=== PATIENT | male | born 1945 | race African-American/Black ===

== ENCOUNTER 2019-06-25 11:56 | Emergency (ER) | payer BC, OTHER ==
[2019-06-25 12:27] VITALS: BP 140/93; PULSE 65; TEMP 98.4; BMI 22.2
--- NOTE | 2019-06-25 13:17 | PDOC ---
History of Present Illness - General Chief Complaint: Rectal Bleed Stated Complaint: BLOOD IN STOOL Time Seen by Provider: 06/25/19 12:44 Past History - Past Medical History Allergies/Adverse Reactions: Allergies Allergy/AdvReac Type Severity Reaction Status Date / Time No Known Allergies Allergy Verified 03/27/14 10:35 Home Medications: Ambulatory Orders Losartan/Hydrochlorothiazide [Losartan-Hctz 50-12.5 mg Tab] 1 each PO DAILY 02/26 Metoprolol Succinate [Toprol XL -] 50 mg PO DAILY 01/21/14 Omeprazole [Prilosec] 20 mg PO DAILY 01/21/14 Docusate Sodium [Colace -] 100 mg PO BID PRN #14 capsule 03/27/14 COPD: No Diabetes: Yes GI Disorders: Yes (ACID REFLUX) HTN: Yes - Psycho Social/Smoking Cessation Hx Smoking History: Never smoked Have you smoked in the past 12 months: No Hx Alcohol Use: No Drug/Substance Use Hx: No Substance Use Type: None *Physical Exam - Vital Signs Last Vital Signs Temp Pulse Resp BP Pulse Ox 98.4 F 65 19 140/93 100 06/25/19 12:22 06/25/19 12:22 06/25/19 12:22 06/25/19 12:22 06/25/19 12:22 ED Treatment Course - LABORATORY CBC & Chemistry Diagram: 06/25/19 12:45 06/25/19 12:45 Medical Decision Making - Medical Decision Making 06/25/19 13:07 73M PMH HTN GERD c/o bright red blood streaking his stool today after he strained. Endorses blood on toilet paper. Denies steve blood in toilet. + h/o similar with straining, last episode in the summer. Presenting today to make sure everything is okay. Denies f/c, lightheadedness, dizziness, cp/sob, n/v, abd pain. NKDA [facility] clinic PMD Denies etoh, tobacco, and drugs CONSTITUTIONAL: Denies F / C HEENT: Denies lightheadedness, dizziness RESP: Denies SOB CARD: Denies chest pain GI: Endorses blood streaked stool. Denies N / V / D, abdominal pain, inability to tolerate PO : Denies dysuria VITALS: AFVSS GEN: Well appearing, NAD, comfortable. AAOx3. HEENT: NC/AT. No facial asymmetry. Normal voice. Supple neck w/ FROM. CV: S1/S2, RRR, no m/r/g LUNG: CTAB, no wheezes, crackles, rales, rhonchi. GI: Soft, ndnt, +BS, no guarding, no rebound. No masses. RECTAL: Exam chaperoned by CARLOS Morfin. + nonthrombosed external hemorrhoid at 6 o 'clock on inspection. no active bleeding or discharge from anus. Normal sphincter tone. No masses or nodules of the rectal vault palpated. No fecal impaction. No blood on glove. EXTREMITIES:No obvious deformities of all extremities. SKIN: Warm, dry, no rashes appreciated. PSYCH: Normal mood and affect; pleasant NEURO: Moving all extremities well. 73M PMH HTN GERD c/o blood streaked stool after straining today. No current complaints. VS WNL. Unremarkable exam w/ nonthrombosed external hemorrhoid no active bleeding. Blood streaked stool likely due to straining. - CBC, CMP - FOBT - likely DC home w/ PCP and GI f/u Discharge - Discharge Information Problems reviewed: Yes Clinical Impression/Diagnosis: Blood present in stool Condition: Stable Disposition: HOME - Admission No - Follow up/Referral Referrals: Brandy Alcocer NP [Primary Care Provider] - Kevon Colin MD [Staff Physician] - - Patient Discharge Instructions Patient Printed Discharge Instructions: DI for Hemorrhoids, DI for Rectal Bleeding Additional Instructions: Follow up with a GI doctor in the next 7 days regarding your symptoms. We are referring you to one below whom you can call and schedule an appointment with. You may also use your clinic's. Follow up with your primary care physician in the next 7 days regarding your symptoms. Continue your home medications as prescribed. Immediately return to the nearest Emergency Department if you experience: - worsening bleeding - abdominal pain - chest pain, shortness of breath, lightheadedness, fainting - anything that concerns you - Post Discharge Activity
[2019-06-25 13:37] LABS: BASO % 0.4 % (0-2.0); EOS % 1.6 % (0-4.5); HEMATOCRIT 43.9 % (35.4-49); HEMOGLOBIN 14.4 GM/dL (11.7-16.9); LYMPH % 28.2 % (8-40); MCH 28.8 pg (25.7-33.7); MCHC 32.8 g/dl (32.0-35.9); MEAN CELL VOLUME 87.8 fl (80-96); MEAN PLT VOLUME 11.1 fl (7.5-11.1); MONO % 6.6 % (3.8-10.2); NEUT % 63.2 % (42.8-82.8); PLATELET COUNT 193 K/MM3 (134-434); RDW 14.6 % (11.9-15.9); WHITE BLOOD COUNT 6.3 K/mm3 (4.0-10.0)
[2019-06-25 14:23] LABS: INR 0.97 (0.83-1.09); PROTHROMBIN TIME (PATIENT) 11.5 SEC (9.7-13.0)
[2019-06-25 14:26] LABS: ACTIVATED PTT 29.3 SECONDS (25.2-36.5)
--- NOTE | 2019-06-25 15:43 | PDOC ---
Documentation entered by Alia Leroy SCRIBE, acting as scribe for Shannon Hernandez MD. Shannon Hernandez MD: This documentation has been prepared by the Mariaa sullivan Xhesika, SCRIBE, under my direction and personally reviewed by me in its entirety. I confirm that the documentation accurately reflects all work, treatment, procedures, and medical decision making performed by me. Attending Attestation - Resident Resident Name: Yoel Goodson - HPI HPI: 06/25/19 14:54 The patient is a 73 year old male with a significant PMH of HTN and GERD who presents to the emergency department for hematochezia. Pt states he noticed BRB in his stool and toilet paper s/p straining. Pt notes he endorsed similar symptoms in the past when straining. The patient denies chest pain, headache and dizziness. Denies fever, chills, cough, and constipation. Denies dysuria, frequency, urgency and hematuria. Allergies: NKDA - Physicial Exam PE: 06/25/19 15:39 Agree with resident exam. patient is alert and oriented and in no acute distress. Abdomen is soft, non tender, non distended with no guarding or rebound. - Medical Decision Making 06/25/19 15:41 pt presents to the Ed complaining of a single episode of blood streaked stool. Guiac negative with stable hgb. Will discharge home with instructions to return to the ED for worsening symptoms. Will instruct to follow up with PCP on Thursday.
== END 2019-06-25 17:00 | disposition home or self-care (01) ==
LOC: JER 11:56 → SUPCPDRO 11:56 → JER 17:00
DX: K92.1 Melena (principal); K64.4 Residual hemorrhoidal skin tags; I10 Essential (primary) hypertension; K21.9 Gastro-esophageal reflux disease without esophagitis; E11.9 Type 2 diabetes mellitus without complications
CPT/HCPCS: 36415; 82272; 85025; 85610; 85730; 99282-25

== ENCOUNTER 2019-12-23 19:23 | Emergency (ER) | payer BC, OTHER ==
--- NOTE | 2019-12-23 19:29 | PDOC ---
Rapid Medical Evaluation Chief Complaint: Constipation Time Seen by Provider: 12/23/19 19:26 Medical Evaluation: Allergies Allergy/AdvReac Type Severity Reaction Status Date / Time No Known Allergies Allergy Verified 03/27/14 10:35 12/23/19 19:27 CC: constipation x 3 days, had a small bm last night, mild abd bloating, denies hx of constipation/abd sx Exam: mild lower abd distention, no abd tenderness, bs + x4 Plan: kub Discharge Disposition - Diagnosis Constipation - Referrals - Patient Instructions - Post Discharge Activity
[2019-12-23 19:34] VITALS: BP 152/90; PULSE 74; TEMP 98.3; BMI 21.5
--- NOTE | 2019-12-23 20:01 | PDOC ---
History of Present Illness - General Chief Complaint: Constipation Stated Complaint: CONSTIPATION Time Seen by Provider: 12/23/19 19:26 - History of Present Illness Initial Comments: 12/23/19 20:00 HPI: 74 y/o M with hx of GERD, HTN, HLD presenting with constipation x3days. He reported last BM was small and hard. He went to his PCP for constipation and was prescribed clarithromycin and amoxicillin. He also took laxative yesterday without improvement. He reports passing gas, tolerating liquids and solids. Denies abd pain, distension, increased belching, dysuria, hematuria, n/v. PMHx: as noted above ROS: as noted SHx: Denies tobacco use; no alcohol use; no rec drugs Allergies: NKDA ROS: GENERAL/CONSTITUTIONAL: No fever or chills. No weakness. HEAD, EYES, EARS, NOSE AND THROAT: No change in vision. No ear pain or dis charge. No sore throat. CARDIOVASCULAR: No chest pain or shortness of breath RESPIRATORY: No cough, wheezing, or hemoptysis. GASTROINTESTINAL: No nausea, vomiting, diarrhea; +constipation. GENITOURINARY: No dysuria, frequency, or change in urination. MUSCULOSKELETAL: No joint or muscle swelling or pain. No neck or back pain. SKIN: No rash NEUROLOGIC: No headache, vertigo, loss of consciousness, or change in strength/sensation. ENDOCRINE: No increased thirst. No abnormal weight change HEMATOLOGIC/LYMPHATIC: No anemia, easy bleeding, or history of blood clots. ALLERGIC/IMMUNOLOGIC: No hives or skin allergy. PE: GENERAL: Awake, alert, and fully oriented, no acute distress HEAD: No signs of trauma, normocephalic, atraumatic EYES: EOMI, sclera anicteric, conjunctiva clear ENT: Auricles normal inspection, hearing grossly normal, nares patent, oropharynx clear without exudates. Moist mucosa NECK: Normal ROM, no lymphadenopathy LUNGS: No increased work of breathing, symmetrical chest rise, clear to auscultation bilaterally, no wheezes, crackles or rhonchi HEART: Regular rate, regular rhythm, normal S1 and S2, no murmur, peripheral pulses 2+ and equal bilaterally. ABDOMEN: Soft, nondistended, nontender. Tympanitic to percussion. No guarding, no rebound. No masses. No CVAT : external hemorrhoids, soft brown stool in the vault, no interior masses MUSCULOSKELETAL: FROM NEUROLOGICAL: Cranial nerves II through XII grossly intact. Normal speech, stable gait, no focal sensorimotor deficits SKIN: Warm, Dry, normal turgor, no rashes or lesions noted Past History - Medical History Allergies/Adverse Reactions: Allergies Allergy/AdvReac Type Severity Reaction Status Date / Time No Known Allergies Allergy Verified 12/23/19 19:29 Home Medications: Ambulatory Orders Losartan/Hydrochlorothiazide [Losartan-Hctz 50-12.5 mg Tab] 1 each PO DAILY 01/21/14 Metoprolol Succinate [Toprol XL -] 50 mg PO DAILY 01/21/14 Omeprazole [Prilosec] 20 mg PO DAILY 01/21/14 Docusate Sodium [Colace -] 100 mg PO BID PRN #14 capsule 03/27/14 COPD: No Diabetes: Yes GI Disorders: Yes (ACID REFLUX) HTN: Yes Other medical history: stutters - Psycho-Social/Smoking History Smoking History: Never smoked Have you smoked in the past 12 months: No - Substance Abuse Hx (Audit-C & DAST Scrn) How often the patient has a drink containing alcohol: Never Score: In Men: 4 or > Positive; In Women: 3 or > Positive: 0 Screen Result (Pos requires Nsg. Audit-10AR): Negative *Physical Exam - Vital Signs Last Vital Signs Temp Pulse Resp BP Pulse Ox 98.3 F 74 18 152/90 100 12/23/19 19:26 12/23/19 19:26 12/23/19 19:26 12/23/19 19:26 12/23/19 19:26 Medical Decision Making - Medical Decision Making 12/24/19 03:38 74 y/o M with hx of GERD, HTN, HLD presenting with constipation x3days. VSS, AF. PE with tympanitic to percussion. -KUB -enema -reassess 12/24/19 03:39 patient had 1 BM feels well discussed with patient and will buy OTC miralax and fleets enema and followup with GI Discharge - Discharge Information Problems reviewed: Yes Clinical Impression/Diagnosis: Constipation Condition: Improved Disposition: HOME - Follow up/Referral Referrals: Mychal Avila DO [Staff Physician] - Janet Cordero MD [Staff Physician] - Kevon Colin MD [Staff Physician] - Brandy Alcocer NP [Primary Care Provider] - - Patient Discharge Instructions Patient Printed Discharge Instructions: Increased Dietary Fiber May Improve Co nstipation Conditions With Pelvic Tha, DI for Constipation Additional Instructions: Additional Instructions: Please return to the emergency department with any new or worsening symptoms or concerns including persistent vomiting, fever, inability to tolerate food. Please follow up with your primary care physician within 72 hours. Also followup with one of the GI doctors for followup for improved bowel regimen Please take Miralax daily for 5 days. It is an over the counter medication and please follow instructions and ask the pharmacist any additional questions. You may also purchase a Fleets enema over the counter to assist in your bowel regimen; please follow package instructions - Post Discharge Activity
[2019-12-23] MEDS ORDERED: MINERAL OIL ENEMA 133 ML ENEMA PR ONE (20:17)
--- NOTE | 2019-12-23 20:51 | PDOC ---
Documentation entered by Camilla Li SCRIBE, acting as scribe for Kristin Connor MD. Kristin Connor MD: This documentation has been prepared by the scribe, Camilla Li SCRIBE, under my direction and personally reviewed by me in its entirety. I confirm that the documentation accurately reflects all work, treatment, procedures, and medical decision making performed by me. Attending Attestation - Resident Resident Name: AronDanieldoug - ED Attending Attestation I have performed the following: I have examined & evaluated the patient, The case was reviewed & discussed with the resident, I agree w/resident's findings & plan, Exceptions are as noted - HPI HPI: 12/23/19 20:47 Patient is a 74 year old male with a significant past medical history of GERD, HTN, and HLD, who presents to the ED with constipation x2 days. Patient stated he had one small/hard bowel movement yesterday and has been passing rosa isela. Patient denies: Nausea, vomiting, dysuria Allergies: NKDA - Physicial Exam PE: 12/23/19 20:48 General: Well appearing, awake and alert, NAD. HEENT: NCAT, PERRL, EOMI, clear conjunctiva, anicteric, moist mucus membranes, clear oropharynx, no oral lesions.. Neck: neck supple, FROM Resp: CTAB, normal and even respirations, no respiratory distress CVS: RRR, no murmurs, 2+ peripheral pulses throughout, no peripheral edema Abdomen: +Tympanic. Soft, NTND, no rebound or guarding. No CVAT. Rectal: +Soft round external stool. No thrombosis. Nontender, no bleeding. Normal active bowel sounds. Back: nontender, normal inspection and ROM MSK: no edema, BETANCUR x4, ROM intact. No clubbing or cyanosis. normal bulk and tone. Neuro: alert, oriented appropriately Psych: Calm and cooperative Skin: warm and well perfused, cap refill <2 sec, normal color 12/23/19 20:59 - Medical Decision Making 12/23/19 20:51 Vital Signs Temp Pulse Resp BP Pulse Ox 98.3 F 74 18 152/90 100 12/23/19 19:26 12/23/19 19:26 12/23/19 19:26 12/23/19 19:26 12/23/19 19:26 Moderate amount of fecal residue in the rectosigmoid junction compatible with his history of constipation. There is nonobstructive gas pattern, no evidence of perforation. vitals wnl, reassuring Patient does not have any peritoneal findings, no abdominal tenderness, no evidence obstruction, no vomiting. No fevers or chills no systemic findings. Rectal exam as documented he does have some stool burden in the rectal vault, no bleeding, nonthrombosed and nonbleeding external hemorrhoids are noted. Patient given mineral oil enema here. Mag citrate. He can continue with high- fiber regimen, adequate hydration and otc stool softeners. Follow-up with primary care doctor, GI specialist, return precautions are discussed 12/23/19 20:59 12/23/19 21:00 Discharge - Discharge Information Problems reviewed: Yes Clinical Impression/Diagnosis: Constipation Condition: Improved Disposition: HOME - Admission No - Follow up/Referral Referrals: Brandy Alcocer NP [Primary Care Provider] - Mychal Avila DO [Staff Physician] - Janet Cordero MD [Staff Physician] - Kevon Colin MD [Staff Physician] - - Patient Discharge Instructions Patient Printed Discharge Instructions: DI for Constipation, Increased Dietary Fiber May Improve Constipation Conditions With Pelvic Tha - Post Discharge Activity
[2019-12-26] MEDS ORDERED: SODIUM CHLORIDE 1,000 ML IV SCH (02:00)
[2019-12-26] MEDS ORDERED: POTASSIUM CHLORIDE TABS 20 MEQ TABLET.ER (FP) PO ONE (02:04)
--- NOTE | 2019-12-26 09:32 | EKG ---
Test Reason : Blood Pressure : / mmHG Vent. Rate : 069 BPM Atrial Rate : 069 BPM P-R Int : 188 ms QRS Dur : 086 ms QT Int : 424 ms P-R-T Axes : 066 -22 042 degrees QTc Int : 454 ms POOR DATA QUALITY, INTERPRETATION MAY BE ADVERSELY AFFECTED NORMAL SINUS RHYTHM NORMAL ECG WHEN COMPARED WITH ECG OF 26-DEC-2019 00:39, NO SIGNIFICANT CHANGE WAS FOUND Confirmed by Anne Lancaster ([id number]) on 12/26/2019 9:31:48 AM Referred By: Confirmed By:Anne Lancaster
[2019-12-26] MEDS ORDERED: PANTOPRAZOLE SODIUM 40 MG VIAL IVPUSH SCH (10:00)
[2019-12-26] MEDS ORDERED: ENOXAPARIN NA (PORCINE) 40 MG/0.4 ML DISP.SYRIN SQ SCH (10:00)
== END 2019-12-23 22:49 | disposition home or self-care (01) ==
LOC: JER 19:23
DX: K59.00 Constipation, unspecified (principal)
CPT/HCPCS: 36415; 74018-TC-FY; 80053; 82550; 82553; 83036; 83735; 84100; 84484; 85025; 93005; 93010; 99285-25

== ENCOUNTER 2019-12-25 21:42 | Inpatient (IN) | payer OTHER ==
--- NOTE | 2019-12-25 21:55 | PDOC ---
Attending Attestation - Resident Resident Name: Cisco Cedeño - ED Attending Attestation I have performed the following: I have examined & evaluated the patient, The case was reviewed & discussed with the resident, I agree w/resident's findings & plan - HPI HPI: 12/25/19 22:16 Pt comes with diarrhea since this AM; he vomited once en route to the ER. Pt went to see his PMD Brandy Alcocer on Thursday 2 days ago at the [facility] and she prescribed clarithro/amox for H pylorii. Pt doesn't recall ever getting endoscopy or seeing a GI doc for H Pylorii. 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 Unclear how PMD diagnosed the H Pylorii. Pt came to the ER 2 days ago because he was constipated and feeling unwell. Pt was basically given laxatives here 2 days ago and sent home after a BM and after he felt better. Pt has no fever and no chills at this time. He has no ill contacts. He ate homemade chicken soup which he vomited in the ambulance. Nobody else at home sick. He has HTN, but no other PMHx. Pt has a severe stutter. - Physicial Exam PE: 12/25/19 22:21 Afebrile VSS HEENT normal Heart and lungs normal no abd pain and no flank pain Pt has no edema of ext Pt has good pulses throughout No rashes - Medical Decision Making 12/25/19 22:22 Basic labs, card enz, EKG, IVF and UA. Pt will be reevaluated. 12/26/19 00:22 Pt has elevated cardiac enzymes and trop and he will be admitted to tele. 12/26/19 00:55 Pt has hyponatremia and hypokalemia Discharge - Discharge Information Problems reviewed: Yes Clinical Impression/Diagnosis: Diarrhea, Hyponatremia Condition: Guarded - Follow up/Referral - Patient Discharge Instructions - Post Discharge Activity
[2019-12-25] MEDS ORDERED: SODIUM CHLORIDE 0.9% 500 ML INFUS.BAG IV ONE (22:23)
[2019-12-25] MEDS ORDERED: ONDANSETRON 4 MG/2 ML VIAL IVPB ONE (22:23)
[2019-12-25 23:06] LABS: BASO % 1.8 % (0-2.0); EOS % 0.5 % (0-4.5); HEMATOCRIT 37.8 % (35.4-49); LYMPH % 13.1 % (8-40); MCH 28.7 pg (25.7-33.7); MCHC 34.3 g/dl (32.0-35.9); MEAN CELL VOLUME 83.6 fl (80-96); MEAN PLT VOLUME 10.2 fl (7.5-11.1); MONO % 6.7 % (3.8-10.2); NEUT % 77.9 % (42.8-82.8); PLATELET COUNT 185 K/MM3 (134-434); RBC 4.52 M/mm3 (4.00-5.60); RDW 13.5 % (11.9-15.9); URINE APPEARANCE CLEAR; URINE BILIRUBIN NEGATIVE (NEGATIVE); URINE COLOR YELLOW; URINE GLUCOSE (UA) NEGATIVE (NEGATIVE); URINE KETONE 1+ (NEGATIVE); URINE LEUK ESTERASE NEGATIVE (NEGATIVE); URINE NITRITE NEGATIVE (NEGATIVE); URINE PROTEIN NEGATIVE (NEGATIVE); URINE UROBILINOGEN 0.2 mg/dL (0.2-1.0)
--- NOTE | 2019-12-25 23:49 | PDOC ---
History of Present Illness - General Chief Complaint: Vomiting/Diarrhea Stated Complaint: WEAKNESS VOMITING Time Seen by Provider: 12/25/19 22:13 History Source: Patient - History of Present Illness Initial Comments: 12/25/19 23:40 74yo male with severe stutter and HTN presents to the ED with diarrhea since this morning, nausea, and vomiting on route on the ambulance. He recently presented to the ED for constipation and was prescribed laxatives. He saw his PCP 2 days prior and was given amoxacillin and clarithromycin for presumed h. pylori despite no EGD, and diarrhea started two days later. Describes it as watery without blood. Nausea intermittent since this morning. Denies blood in stool. Denies f/c, CP, AP, cough, congestion PMHX: as in HPI PSHX: none Meds: BP meds, omeprazole, amoxicillin, clarithromycin Allergies: none SH: denies alc/tob/drugs ROS GENERAL/CONSTITUTIONAL: No fever or chills. No weakness. HEAD, EYES, EARS, NOSE AND THROAT: No change in vision. No ear pain or discharg e. No sore throat. CARDIOVASCULAR: No chest pain or shortness of breath RESPIRATORY: No cough, wheezing, or hemoptysis. GASTROINTESTINAL: + nausea, vomiting, diarrhea GENITOURINARY: No dysuria, frequency, or change in urination. MUSCULOSKELETAL: No joint or muscle swelling or pain. No neck or back pain. SKIN: No rash NEUROLOGIC: No headache, vertigo, loss of consciousness, or change in strength/sensation. ENDOCRINE: No increased thirst. No abnormal weight change HEMATOLOGIC/LYMPHATIC: No anemia, easy bleeding, or history of blood clots. ALLERGIC/IMMUNOLOGIC: No hives or skin allergy. PE GENERAL: Awake, alert, and fully oriented, in no acute distress, severe stutter, emesis bag in hand HEAD: No signs of trauma, normocephalic, atraumatic EYES: PERRLA, EOMI, sclera anicteric, conjunctiva clear ENT: Hearing grossly normal, nares patent, oropharynx clear without exudates. Moist mucosa NECK: Normal ROM, supple, no lymphadenopathy, JVD, or masses LUNGS: No distress, speaks full sentences, clear to auscultation bilaterally HEART: Regular rate and rhythm, normal S1 and S2, no murmurs, rubs or gallops, peripheral pulses normal and equal bilaterally. ABDOMEN: Soft, nontender, normoactive bowel sounds. No guarding, no rebound. No masses EXTREMITIES : Normal inspection, Normal range of motion, no edema. No clubbing or cyanosis. NEUROLOGICAL: Cranial nerves II through XII grossly intact. No focal sensorimotor deficits SKIN: Warm, Dry, normal turgor, no rashes or lesions noted Assessment and Plan 74yo male with severe stutter and HTN presents to the ED with diarrhea since this morning, nausea, and vomiting on route on the ambulance. Differential incl udes medication adverse effect (antibiotics and/or laxatives), gastroenteritis, ACS. -EKG: NSR, no ischemic changes -CXR: no consolidation (my read) -labs: low Cl and K (consistent with emesis) -trop: 0.05, will repeat cardiac enzymes -zofran, IV fluids 12/26/19 00:10 Reassess: no repeat emesis, decreased nausea, no repeat diarrhea, no chest pain Signed out to Dr. Guzman Past History - Medical History Allergies/Adverse Reactions: Allergies Allergy/AdvReac Type Severity Reaction Status Date / Time No Known Allergies Allergy Verified 12/25/19 22:00 Home Medications: Ambulatory Orders Losartan/Hydrochlorothiazide [Losartan-Hctz 50-12.5 mg Tab] 1 each PO DAILY 01/21/14 Metoprolol Succinate [Toprol XL -] 50 mg PO DAILY 01/21/14 Omeprazole [Prilosec] 20 mg PO DAILY 01/21/14 Docusate Sodium [Colace -] 100 mg PO BID PRN #14 capsule 03/27/14 COPD: No Diabetes: Yes GI Disorders: Yes (ACID REFLUX) HTN: Yes - Psycho-Social/Smoking History Smoking History: Never smoked Have you smoked in the past 12 months: No Information on smoking cessation initiated: No - Substance Abuse Hx (Audit-C & DAST Scrn) How often the patient has a drink containing alcohol: Never Score: In Men: 4 or > Positive; In Women: 3 or > Positive: 0 Screen Result (Pos requires Nsg. Audit-10AR): Negative In the last yr the pt used illegal drug/Rx for NonMed reason: No Score: Yes response is considered Positive: 0 Screen Result (Positive result requires Nsg. DAST-10): Negative *Physical Exam - Vital Signs Last Vital Signs Temp Pulse Resp BP Pulse Ox 98.5 F 72 20 139/76 98 12/25/19 21:50 12/25/19 21:50 12/25/19 21:50 12/25/19 21:50 12/25/19 21:50 ED Treatment Course - LABORATORY CBC & Chemistry Diagram: 12/25/19 22:35 12/25/19 21:59 - ADDITIONAL ORDERS Additional order review: Laboratory Results 12/25/19 22:35 Urine Color Yellow Urine Appearance Clear Urine pH 6.0 Ur Specific [place] 1.010 Urine Protein Negative Urine Glucose (UA) Negative Urine Ketones 1+ H Urine Blood Negative Urine Nitrite Negative Urine Bilirubin Negative Urine Urobilinogen 0.2 Ur Leukocyte Esterase Negative 12/25/19 22:35 RBC 4.52 MCV 83.6 MCHC 34.3 RDW 13.5 MPV 10.2 Neutrophils % 77.9 D Lymphocytes % 13.1 D Monocytes % 6.7 Eosinophils % 0.5 Basophils % 1.8 D - Medications Given in the ED: ED Medications Discontinued Medications Generic Name Dose Route Start Last Admin Trade Name Jayy PRN Reason Stop Dose Admin Ondansetron HCl 4 mg 12/25/19 22:23 12/25/19 22:51 Zofran Injection IVPB 12/25/19 22:24 4 mg ONCE ONE Administration Sodium Chloride 250 ml 12/25/19 22:23 12/25/19 22:50 Normal Saline - IV 12/25/19 22:24 250 ml ONCE ONE Administration Discharge - Discharge Information Problems reviewed: Yes Clinical Impression/Diagnosis: Diarrhea Condition: Fair - Follow up/Referral - Patient Discharge Instructions - Post Discharge Activity
[2019-12-25 23:52] LABS: ALBUMIN 3.6 g/dl (3.4-5.0); BILIRUBIN,TOTAL 1.3 mg/dL (0.2-1); BLOOD UREA NITROGEN 7.6 mg/dL (7-18); CALCIUM 8.4 mg/dL (8.5-10.1); CREATININE 0.9 mg/dL (0.55-1.3); POTASSIUM 3.6 mmol/L (3.5-5.1); TOT PROT 6.6 g/dl (6.4-8.2)
[2019-12-26] MEDS ORDERED: ASPIRIN 81 MG CHEWABLE TABLETS PO ONE (00:20)
[2019-12-26] MEDS ORDERED: CLOPIDOGREL BISULFATE 300 MG TABLET PO ONE (00:20)
[2019-12-26] MEDS ORDERED: CLOPIDOGREL BISULFATE 300 MG TABLET ONE (00:26)
[2019-12-26] MEDS ORDERED: ASPIRIN 81 MG CHEWABLE TABLETS ONE (00:26)
--- NOTE | 2019-12-26 00:31 | PDOC ---
*Physical Exam - Vital Signs Last Vital Signs Temp Pulse Resp BP Pulse Ox 98.5 F 72 20 139/76 98 12/25/19 21:50 12/25/19 21:50 12/25/19 21:50 12/25/19 21:50 12/25/19 21:50 ED Treatment Course - LABORATORY CBC & Chemistry Diagram: 12/25/19 22:35 12/25/19 21:59 - ADDITIONAL ORDERS Additional order review: Laboratory Results 12/25/19 12/25/19 22:35 21:59 Sodium 117 L* Potassium 3.6 Chloride 80 L Carbon Dioxide 23 Anion Gap 14 BUN 7.6 Creatinine 0.9 Est GFR (CKD-EPI)AfAm 97.86 Est GFR (CKD-EPI)NonAf 84.43 Random Glucose 116 H Calcium 8.4 L Total Bilirubin 1.3 H AST 58 H ALT 32 Alkaline Phosphatase 54 Creatine Kinase 1007 H Troponin I 0.05 Total Protein 6.6 Albumin 3.6 Urine Color Yellow Urine Appearance Clear Urine pH 6.0 Ur Specific [place] 1.010 Urine Protein Negative Urine Glucose (UA) Negative Urine Ketones 1+ H Urine Blood Negative Urine Nitrite Negative Urine Bilirubin Negative Urine Urobilinogen 0.2 Ur Leukocyte Esterase Negative 12/25/19 22:35 RBC 4.52 MCV 83.6 MCHC 34.3 RDW 13.5 MPV 10.2 Neutrophils % 77.9 D Lymphocytes % 13.1 D Monocytes % 6.7 Eosinophils % 0.5 Basophils % 1.8 D - Medications Given in the ED: ED Medications Discontinued Medications Generic Name Dose Route Start Last Admin Trade Name Freq PRN Reason Stop Dose Admin Ondansetron HCl 4 mg 12/25/19 22:23 12/25/19 22:51 Zofran Injection IVPB 12/25/19 22:24 4 mg ONCE ONE Administration Sodium Chloride 250 ml 12/25/19 22:23 12/25/19 22:50 Normal Saline - IV 12/25/19 22:24 250 ml ONCE ONE Administration Medical Decision Making - Medical Decision Making Patient signed out by Dr. Cedeño Lab called reporting hyponatremia, 117 CMP Sodium 117 mmol/L (136-145) L* 12/25/19 21:59 Potassium 3.6 mmol/L (3.5-5.1) 12/25/19 21:59 Chloride 80 mmol/L (98-107) L 12/25/19 21:59 Carbon Dioxide 23 mmol/L (21-32) 12/25/19 21:59 Anion Gap 14 MMOL/L (8-16) 12/25/19 21:59 BUN 7.6 mg/dL (7-18) 12/25/19 21:59 Creatinine 0.9 mg/dL (0.55-1.3) 12/25/19 21:59 Est GFR (CKD-EPI)AfAm 97.86 12/25/19 21:59 Est GFR (CKD-EPI)NonAf 84.43 12/25/19 21:59 Random Glucose 116 mg/dL (74-106) H 12/25/19 21:59 Calcium 8.4 mg/dL (8.5-10.1) L 12/25/19 21:59 Total Bilirubin 1.3 mg/dL (0.2-1) H 12/25/19 21:59 AST 58 U/L (15-37) H 12/25/19 21:59 ALT 32 U/L (13-61) 12/25/19 21:59 Alkaline Phosphatase 54 U/L (45-117) 12/25/19 21:59 Creatine Kinase 1007 U/L (26-308) H 12/25/19 21:59 Troponin I 0.05 ng/ml (0.00-0.05) 12/25/19 21:59 Total Protein 6.6 g/dl (6.4-8.2) 12/25/19 21:59 Albumin 3.6 g/dl (3.4-5.0) 12/25/19 21:59 Plan for admission 12/26/19 00:[address] Reynoso who accepted patient for admission under Dr. Guaman 12/26/19 00:55 Called patient's daughter, Lyssa, , and updated her 12/26/19 00:58 Discharge - Discharge Information Problems reviewed: Yes Clinical Impression/Diagnosis: Diarrhea, Hyponatremia Condition: Guarded - Admission Yes - Follow up/Referral - Patient Discharge Instructions - Post Discharge Activity
[2019-12-26] MEDS ORDERED: POTASSIUM CHLORIDE TABS 20 MEQ TABLET.ER (FP) PO ONE ×2 (02:22→02:51)
--- NOTE | 2019-12-26 02:31 | HP ---
<Eligio Reynoso - Last Filed: 12/26/19 03:29> CHIEF COMPLAINT: Diarrhea x6 today HISTORY OF PRESENT ILLNESS: Pt is a 74 year old male with severe stutter with PMHx of hypertension and GERD presenting with diarrhea that started this morning. He states that he had 6 episodes of diarrhea, with his last episode being at 2pm. Pt states that the diarrhea was watery, with no blood or mucus. While on route to the ED via ambulance, he was having nausea and had an episode of vomiting which was non bloody/non bilious in nature. Pt also had an episode of vomiting while in the ED which improved when given Zofran. Pt denies abdominal pain, urinary changes, chest pain, SOB, palpitations, fatigue, recent weight gain/loss, incontinence. Pt was give Zofran and started on NS in the ED. EKG showed NSR, no ischemic changes. Pt was in ED at [facility] two days prior for constipation that had lasted for 2 days. During that visit, he was given mineral oil enema and magnesium citrate to help with his constipation. He was advised to take OTC stool softeners which he did once daily for the last 2 days. Two days prior to the last ED visit for constipation, patient had been to his PCP where he had been started on triple therapy (amoxicillin, clarithromycin and omeprazole) for H. pylori. This had not been confirmed with EGD. Recent Travel: None PAST MEDICAL HISTORY: As stated above PAST SURGICAL HISTORY: Denies Social History: Smoking: Never smoker Alcohol: Never Drugs: Denies Allergies No Known Allergies Allergy (Verified 12/25/19 22:00) HOME MEDICATIONS: Home Medications Medication Instructions Recorded Losartan/Hydrochlorothiazide 1 each PO DAILY 01/21/14 [Losartan-Hctz 50-12.5 mg Tab] Metoprolol Succinate [Toprol XL -] 50 mg PO DAILY 01/21/14 Omeprazole [Prilosec] 20 mg PO DAILY 01/21/14 Docusate Sodium [Colace -] 100 mg PO BID PRN #14 capsule 03/27/14 Amoxicillin - [Amoxicillin 500mg 1,000 mg PO BID 12/26/19 Capsule -] Clarithromycin 500 mg PO BID 12/26/19 REVIEW OF SYSTEMS CONSTITUTIONAL: Absent: fever, chills, diaphoresis, generalized weakness, malaise, loss of appetite, weight change HEENT: Absent: rhinorrhea, nasal congestion, throat pain, throat swelling, difficulty swallowing, mouth swelling, ear pain, eye pain, visual changes CARDIOVASCULAR: Absent: chest pain, syncope, palpitations, irregular heart rate, lightheadedness, peripheral edema RESPIRATORY: Absent: cough, shortness of breath, dyspnea with exertion, orthopnea, wheezing, stridor, hemoptysis GASTROINTESTINAL: Admits to diarrhea, nausea and vomiting. Absent: abdominal pain, abdominal distension, constipation, melena, hematochezia GENITOURINARY: Absent: dysuria, frequency, urgency, hesitancy, hematuria, flank pain, genital pain MUSCULOSKELETAL: Absent: myalgia, arthralgia, joint swelling, back pain, neck pain SKIN: Absent: rash, itching, pallor HEMATOLOGIC/IMMUNOLOGIC: Absent: easy bleeding, easy bruising, lymphadenopathy, frequent infections ENDOCRINE: Absent: unexplained weight gain, unexplained weight loss, heat intolerance, cold intolerance NEUROLOGIC: Absent: headache, focal weakness or paresthesias, dizziness, unsteady gait, seizure, mental status changes, bladder or bowel incontinence PSYCHIATRIC: Absent: anxiety, depression, suicidal or homicidal ideation, hallucinations. PHYSICAL EXAMINATION Vital Signs - 24 hr 12/25/19 12/26/19 21:50 00:50 Temperature 98.5 F 98.0 F Pulse Rate 72 Pulse Rate [ 71 Right Radial] Respiratory 20 17 Rate Blood Pressure 139/76 Blood Pressure 135/67 [Left Arm] O2 Sat by Pulse 98 100 Oximetry (%) GENERAL: Awake, alert, and fully oriented, in no acute distress. HEAD: Normal with no signs of trauma. EYES: Pupils equal, round and reactive to light, extraocular movements intact, sclera anicteric, conjunctiva clear. No lid lag. EARS, NOSE, THROAT: Ears normal, nares patent, oropharynx clear without exudates. Moist mucous membranes. NECK: Normal range of motion, supple without lymphadenopathy, JVD, or masses. LUNGS: Breath sounds equal, clear to auscultation bilaterally. No wheezes, and no crackles. No accessory muscle use. HEART: Regular rate and rhythm, normal S1 and S2 without murmur, rub or gallop. ABDOMEN: Soft, nontender, not distended, normoactive bowel sounds, no guarding, no rebound, no masses. No hepatomegaly or splenomegaly. MUSCULOSKELETAL: Normal range of motion at all joints. No bony deformities or tenderness. No CVA tenderness. UPPER EXTREMITIES: 2+ pulses, warm, well-perfused. No cyanosis. No clubbing. No peripheral edema. LOWER EXTREMITIES: 2+ pulses, warm, well-perfused. No calf tenderness. No peripheral edema. NEUROLOGICAL: Cranial nerves II-XII intact. Normal speech. Normal gait. PSYCHIATRIC: Cooperative. Good eye contact. Appropriate mood and affect. SKIN: Warm, dry, normal turgor, no rashes or lesions noted, normal capillary refill. Laboratory Results - last 24 hr 12/25/19 12/25/19 12/25/19 21:59 22:35 22:35 WBC 9.0 RBC 4.52 Hgb 13.0 Hct 37.8 MCV 83.6 MCH 28.7 MCHC 34.3 RDW 13.5 Plt Count 185 MPV 10.2 Absolute Neuts (auto) 7.1 Neutrophils % 77.9 D Lymphocytes % 13.1 D Monocytes % 6.7 Eosinophils % 0.5 Basophils % 1.8 D Nucleated RBC % 0 Sodium 117 L* Potassium 3.6 Chloride 80 L Carbon Dioxide 23 Anion Gap 14 BUN 7.6 Creatinine 0.9 Est GFR (CKD-EPI)AfAm 97.86 Est GFR (CKD-EPI)NonAf 84.43 Random Glucose 116 H Calcium 8.4 L Total Bilirubin 1.3 H AST 58 H ALT 32 Alkaline Phosphatase 54 Creatine Kinase 1007 H Creatine Kinase Index 0.9 CK-MB (CK-2) 9.8 H Troponin I 0.05 Total Protein 6.6 Albumin 3.6 Urine Color Yellow Urine Appearance Clear Urine pH 6.0 Ur Specific [place] 1.010 Urine Protein Negative Urine Glucose (UA) Negative Urine Ketones 1+ H Urine Blood Negative Urine Nitrite Negative Urine Bilirubin Negative Urine Urobilinogen 0.2 Ur Leukocyte Esterase Negative 12/26/19 01:34 WBC RBC Hgb Hct MCV MCH MCHC RDW Plt Count MPV Absolute Neuts (auto) Neutrophils % Lymphocytes % Monocytes % Eosinophils % Basophils % Nucleated RBC % Sodium Potassium Chloride Carbon Dioxide Anion Gap BUN Creatinine Est GFR (CKD-EPI)AfAm Est GFR (CKD-EPI)NonAf Random Glucose Calcium Total Bilirubin AST ALT Alkaline Phosphatase Creatine Kinase Creatine Kinase Index CK-MB (CK-2) Troponin I 0.06 H Total Protein Albumin Urine Color Urine Appearance Urine pH Ur Specific [place] Urine Protein Urine Glucose (UA) Urine Ketones Urine Blood Urine Nitrite Urine Bilirubin Urine Urobilinogen Ur Leukocyte Esterase ASSESSMENT/PLAN: Pt is a 74 yo M with PMHx of hypertension and GERD presenting with diarrhea since this morning with 6 episodes which were watery, N/V x2 on route to the hospital admitted for mildly symptomatic, severe hyponatremia (Na 117) and ACS rule out. Labs showed hyponatremia (117), and borderline trops (0.05, 0.06), CKMB 9.8. #Diarrhea -Complaining of 6 episodes of watery diarrhea since this AM -Likely causing hyponatremia -Ordered stool cultures, stool WBC, stool O&P, C diff, stool electrolytes to determine potential cause of diarrhea -Could be secondary to therapy for possible H pylori (amoxicillin, omeprazole, clarithromycin); hold -Continue to monitor for episodes of diarrhea and associated symptoms #Hyponatremia -Na+ 117 -Sodium deficit = 819 -Likely secondary to diarrhea causing true volume depletion -Unlikely to be other causes of severe hyponatremia such as adrenal insufficiency due to lack of hypotension/sinan -Serum osm, urine osm ordered to rule out SIADH -IV NS at 83cc/hour -Goal correction rate = increase 8mEq Na+ in 24 hours to prevent osmotic demyelination syndrome -Stat BMP follow up -CMP in AM -Monitor patient to ensure no serious complications of Hyponatremia -Consulted nephro #Rule out ACS -No typical symptoms reported -Trop 0.05, 0.06 -CK-MB 9.8 -EKG NSR no ischemic changes -Continue to trend troponins -EKG ordered for AM -Admitted to tele for monitoring #Nausea/vomiting -No further episodes after ambulance and ED episode -Given IV zofran in ED -No further treatment required, continue to monitor #Hypokalemia -K+ 3.6 -PO 40mg once -Potassium IV started -Follow up BMP ordered stat -Follow up CMP in AM labs #Transaminitis -AST 58/ALT 32; nearly 2:1 but denies alcohol history -Follow up morning liver enzymes #GERD -Held omeprazole, clarithromycin and amoxicillin for H.pylori by PCP, due to concerns for C diff -No protonix as that can increase likelihood of C diff; stool C diff ordered #Hyperglycemia -Blood glucose 116 -No noted history of DM -A1c ordered for AM labs; follow up #Hx of HTN -Held HCTZ as it can decrease K+ -Continue home Losartan after med recs Prophylaxis -Lovenox 40mg SQ daily FEN -NS at 83cc/hour; continue to monitor sodium -Fluid restriction to prevent further hyponatremia -Salt controlled diet Dispo Admitted to [facility] for ACS rule out and hyponatremia with nephro consult. Stool studies ordered to determine cause of diarrhea. Likely hyponatremic due to diarrhea but continue to monitor and rule out other causes with SIADH studies. Follow up for symptoms of hyponatremia, and BMP ordered overnight. Family Medical History Family History: Unremarkable (unremarkable for GI diseases or cancers) Problem List - Problem (1) Hypertension Code(s): I10 - ESSENTIAL (PRIMARY) HYPERTENSION (2) Hypokalemia Code(s): E87.6 - HYPOKALEMIA (3) Nausea & vomiting Code(s): R11.2 - NAUSEA WITH VOMITING, UNSPECIFIED (4) Transaminitis Code(s): R74.0 - NONSPEC ELEV OF LEVELS OF TRANSAMNS & LACTIC ACID DEHYDRGNSE (5) GERD (gastroesophageal reflux disease) Code(s): K21.9 - GASTRO-ESOPHAGEAL REFLUX DISEASE WITHOUT ESOPHAGITIS (6) Diarrhea Code(s): R19.7 - DIARRHEA, UNSPECIFIED (7) Hyponatremia Code(s): E87.1 - HYPO-OSMOLALITY AND HYPONATREMIA Visit type - Emergency Visit Emergency Visit: Yes ED Registration Date: 12/26/19 Care time: The patient presented to the Emergency Department on the above date and was hospitalized for further evaluation of their emergent condition. - New Patient This patient is new to me today: Yes Date on this admission: 12/26/19 - Critical Care Critical Care patient: No ATTENDING PHYSICIAN STATEMENT I saw and evaluated the patient. I reviewed the resident's note and discussed the case with the resident. I agree with the resident's findings and plan as documented. SUBJECTIVE: OBJECTIVE: ASSESSMENT AND PLAN: <Binta Guaman - Last Filed: 12/26/19 06:59> CHIEF COMPLAINT: PCP: HISTORY OF PRESENT ILLNESS: ER course was notable for: (1) (2) (3) Recent Travel: PAST MEDICAL HISTORY: PAST SURGICAL HISTORY: Social History: Smoking: Alcohol: Drugs: Allergies No Known Allergies Allergy (Verified 12/25/19 22:00) HOME MEDICATIONS: Home Medications Medication Instructions Recorded Losartan/Hydrochlorothiazide 1 each PO DAILY 01/21/14 [Losartan-Hctz 50-12.5 mg Tab] Metoprolol Succinate [Toprol XL -] 50 mg PO DAILY 01/21/14 Omeprazole [Prilosec] 20 mg PO DAILY 01/21/14 Docusate Sodium [Colace -] 100 mg PO BID PRN #14 capsule 03/27/14 Amoxicillin - [Amoxicillin 500mg 1,000 mg PO BID 12/26/19 Capsule -] Clarithromycin 500 mg PO BID 12/26/19 REVIEW OF SYSTEMS CONSTITUTIONAL: Absent: fever, chills, diaphoresis, generalized weakness, malaise, loss of appetite, weight change HEENT: Absent: rhinorrhea, nasal congestion, throat pain, throat swelling, difficulty swallowing, mouth swelling, ear pain, eye pain, visual changes CARDIOVASCULAR: Absent: chest pain, syncope, palpitations, irregular heart rate, lightheadedness, peripheral edema RESPIRATORY: Absent: cough, shortness of breath, dyspnea with exertion, orthopnea, wheezing, stridor, hemoptysis GASTROINTESTINAL: Absent: abdominal pain, abdominal distension, nausea, vomiting, diarrhea, constipation, melena, hematochezia GENITOURINARY: Absent: dysuria, frequency, urgency, hesitancy, hematuria, flank pain, genital pain MUSCULOSKELETAL: Absent: myalgia, arthralgia, joint swelling, back pain, neck pain SKIN: Absent: rash, itching, pallor HEMATOLOGIC/IMMUNOLOGIC: Absent: easy bleeding, easy bruising, lymphadenopathy, frequent infections ENDOCRINE: Absent: unexplained weight gain, unexplained weight loss, heat intolerance, cold intolerance NEUROLOGIC: Absent: headache, focal weakness or paresthesias, dizziness, unsteady gait, sei zure, mental status changes, bladder or bowel incontinence PSYCHIATRIC: Absent: anxiety, depression, suicidal or homicidal ideation, hallucinations. PHYSICAL EXAMINATION Vital Signs - 24 hr 12/25/19 12/26/19 12/26/19 21:50 00:50 06:36 Temperature 98.5 F 98.0 F 98.4 F Pulse Rate 72 Pulse Rate [ 71 69 Right Radial] Respiratory 20 17 17 Rate Blood Pressure 139/76 Blood Pressure 135/67 137/75 [Left Arm] O2 Sat by Pulse 98 100 99 Oximetry (%) GENERAL: Awake, alert, and fully oriented, in no acute distress. HEAD: Normal with no signs of trauma. EYES: Pupils equal, round and reactive to light, extraocular movements intact, sclera anicteric, conjunctiva clear. No lid lag. EARS, NOSE, THROAT: Ears normal, nares patent, oropharynx clear without exudates. Moist mucous membranes. NECK: Normal range of motion, supple without lymphadenopathy, JVD, or masses. LUNGS: Breath sounds equal, clear to auscultation bilaterally. No wheezes, and no crackles. No accessory muscle use. HEART: Regular rate and rhythm, normal S1 and S2 without murmur, rub or gallop. ABDOMEN: Soft, nontender, not distended, normoactive bowel sounds, no guarding, no rebound, no masses. No hepatomegaly or splenomegaly. MUSCULOSKELETAL: Normal range of motion at all joints. No bony deformities or tenderness. No CVA tenderness. UPPER EXTREMITIES: 2+ pulses, warm, well-perfused. No cyanosis. No clubbing. No peripheral edema. LOWER EXTREMITIES: 2+ pulses, warm, well-perfused. No calf tenderness. No peripheral edema. NEUROLOGICAL: Cranial nerves II-XII intact. Normal speech. Normal gait. PSYCHIATRIC: Cooperative. Good eye contact. Appropriate mood and affect. SKIN: Warm, dry, normal turgor, no rashes or lesions noted, normal capillary refill. Laboratory Results - last 24 hr 12/25/19 12/25/19 12/25/19 21:59 22:35 22:35 WBC 9.0 RBC 4.52 Hgb 13.0 Hct 37.8 MCV 83.6 MCH 28.7 MCHC 34.3 RDW 13.5 Plt Count 185 MPV 10.2 Absolute Neuts (auto) 7.1 Neutrophils % 77.9 D Lymphocytes % 13.1 D Monocytes % 6.7 Eosinophils % 0.5 Basophils % 1.8 D Nucleated RBC % 0 Sodium 117 L* Potassium 3.6 Chloride 80 L Carbon Dioxide 23 Anion Gap 14 BUN 7.6 Creatinine 0.9 Est GFR (CKD-EPI)AfAm 97.86 Est GFR (CKD-EPI)NonAf 84.43 Random Glucose 116 H Calcium 8.4 L Total Bilirubin 1.3 H AST 58 H ALT 32 Alkaline Phosphatase 54 Creatine Kinase 1007 H Creatine Kinase Index 0.9 CK-MB (CK-2) 9.8 H Troponin I 0.05 Total Protein 6.6 Albumin 3.6 Urine Color Yellow Urine Appearance Clear Urine pH 6.0 Ur Specific [place] 1.010 Urine Protein Negative Urine Glucose (UA) Negative Urine Ketones 1+ H Urine Blood Negative Urine Nitrite Negative Urine Bilirubin Negative Urine Urobilinogen 0.2 Ur Leukocyte Esterase Negative 12/26/19 01:34 WBC RBC Hgb Hct MCV MCH MCHC RDW Plt Count MPV Absolute Neuts (auto) Neutrophils % Lymphocytes % Monocytes % Eosinophils % Basophils % Nucleated RBC % Sodium Potassium Chloride Carbon Dioxide Anion Gap BUN Creatinine Est GFR (CKD-EPI)AfAm Est GFR (CKD-EPI)NonAf Random Glucose Calcium Total Bilirubin AST ALT Alkaline Phosphatase Creatine Kinase 1237 H Creatine Kinase Index 0.8 CK-MB (CK-2) 10.2 H Troponin I 0.06 H Total Protein Albumin Urine Color Urine Appearance Urine pH Ur Specific [place] Urine Protein Urine Glucose (UA) Urine Ketones Urine Blood Urine Nitrite Urine Bilirubin Urine Urobilinogen Ur Leukocyte Esterase ASSESSMENT/PLAN: ATTENDING PHYSICIAN STATEMENT I saw and evaluated the patient. I reviewed the resident's note and discussed the case with the resident. I agree with the resident's findings and plan as documented. SUBJECTIVE: OBJECTIVE: ASSESSMENT AND PLAN: Patient was seen and evaluated. 74 year old Male with a PMHx of hypertension and GERD presenting with N/V/D Labs notable for severe hyponatremia (Na 117) and ACS rule out with borderline trops (0.05, 0.06), CKMB 9.8. #N/V/Diarrhea -Dehydration lkely causing hyponatremia -Follow-up stool cultures, stool WBC, stool O&P, C diff, stool electrolytes - supportive care #Hyponatremia -Likely secondary to diarrhea causing true volume depletion -Serum osm, urine osm ordered to rule out SIADH -IV fluid hydration - serial Lytes
[2019-12-26] MEDS ORDERED: KCL 10 MEQ IVPB 10 MEQ/100 ML INFUS.BAG IVPB ONE ×2 (02:50→05:19)
[2019-12-26] MEDS: SODIUM CHLORIDE 1,000 ML IV SCH ×2 (03:28→14:32)
[2019-12-26] MEDS: KCL 10 MEQ IVPB 10 MEQ/100 ML INFUS.BAG IVPB SCH ×3 (03:29→05:23)
[2019-12-26 09:01] LABS: OSMOLALITY,SERUM 251 mosm/kg (278-305)
[2019-12-26] MEDS ORDERED: ENOXAPARIN NA (PORCINE) 40 MG/0.4 ML DISP.SYRIN SQ ONE (09:28)
--- NOTE | 2019-12-26 09:33 | EKG ---
Test Reason : Blood Pressure : / mmHG Vent. Rate : 073 BPM Atrial Rate : 073 BPM P-R Int : 204 ms QRS Dur : 090 ms QT Int : 414 ms P-R-T Axes : 089 -18 065 degrees QTc Int : 456 ms POOR DATA QUALITY, INTERPRETATION MAY BE ADVERSELY AFFECTED NORMAL SINUS RHYTHM LEFTWARD AXIS WHEN COMPARED WITH ECG OF 25-DEC-2019 22:17, NO SIGNIFICANT CHANGE WAS FOUND Confirmed by Anne Lancaster ([id number]) on 12/26/2019 9:32:44 AM Referred By: Confirmed By:Anne Lancaster
--- NOTE | 2019-12-26 09:33 | EKG ---
Test Reason : Blood Pressure : / mmHG Vent. Rate : 063 BPM Atrial Rate : 063 BPM P-R Int : 200 ms QRS Dur : 098 ms QT Int : 446 ms P-R-T Axes : 079 -08 049 degrees QTc Int : 456 ms NORMAL SINUS RHYTHM LEFTWARD AXIS WHEN COMPARED WITH ECG OF 27-MAR-2014 12:04, QT HAS LENGTHENED Confirmed by Anne Lancaster ([id number]) on 12/26/2019 9:33:14 AM Referred By: Confirmed By:Anne Lancaster
[2019-12-26] MEDS: ENOXAPARIN NA (PORCINE) 40 MG/0.4 ML DISP.SYRIN SQ SCH (10:17)
[2019-12-26 10:51] VITALS: BMI 22.4
--- NOTE | 2019-12-26 10:53 | PN ---
Teaching Attending Note Name of Resident: Vanessa Doll ATTENDING PHYSICIAN STATEMENT I saw and evaluated the patient. I reviewed the resident's note and discussed the case with the resident. I agree with the resident's findings and plan as documented. SUBJECTIVE: denies any pain, fever , chills, abd pain, SOB, light headedness with position changes, no hematochezia. diarrhea stopped 2 days ago. no sick contact. cont to take his BP pill that has HCTZ in it . OBJECTIVE: NAd, awake, stutter, MMM. no facail droop. CV: RRR, no MRG Lungs : CTAB Abd:soft, NT, ND , NL BS Ext : No edema on LE or upper extremities. Neuro: EOMI, no facial droop. tongue at mid line. strength 5/5 in upper and lower extremities proximally and distally. ASSESSMENT AND PLAN: 74 y/o man with h/o stutter, GERD and HTN, with recent diagnosis of HP and started ontriple therapy who presented for diarrhea and was found to have hyponatremia. 1- Severe hypotonic hyponatremia , but with no change in level of consciousness or seizure. No other sx. Likely due to hypovolemia in setting of diarrhea and being on HCTZ. - urine osm is low indicating hypovolemia as etiology - order urine Urea and Urine NA. -BMP ordered stat in am but not done. will discuss with RN - avoid rapid correction of Na level. - hold HCTZ , unlikely to resume after dc 3- HTN: resume losartan and hold HCTZ. 4- diarrhea: could be due to Abx . ? viral enteritis . r/o COVID . R/o C diff - resolved now - if recurs will send stool cx and c diff. - IV hydration 5- Recent diagnosis of HP. - resume triple therapy 6- DVTPX : Lovenox. PT eval
[2019-12-26 11:06] LABS: URINE UREA NITROGEN 96 MG/DL (350-1000)
[2019-12-26 11:46] LABS: ANION GAP 15 MMOL/L (8-16); BLOOD UREA NITROGEN 5.8 mg/dL (7-18); CALCIUM 8.9 mg/dL (8.5-10.1); CHLORIDE 85 mmol/L (98-107); CO2 21 mmol/L (21-32); CREATININE 0.9 mg/dL (0.55-1.3); GLUCOSE,RANDOM 100 mg/dL (74-106); POTASSIUM 3.8 mmol/L (3.5-5.1); SODIUM 121 mmol/L (136-145)
--- NOTE | 2019-12-26 13:46 | CONSULT ---
Consult Consult Specialty:: Nephrology Reason for Consultation:: hyponatremia - History of Present Illness Chief Complaint: diarrhea History of Present Illness: Pt is a 74 year old gentleman with pmhx of gerd and HTN who presents to the ER with diarrhea. He has had over 6 episodes. He describes the diarrhea as watery. He denies abdominal pain. He also had a few episodes of vomiting. He was found to be hyponatremic and I was called to evaluate him. He denies headache or change in vision. HE was on a thiazide as well at home. - History Source History Provided By: Patient, Medical Record - Past Medical History Cardio/Vascular: Yes: HTN Gastrointestinal: Yes: GERD - Alcohol/Substance Use Hx Alcohol Use: No - Smoking History Smoking history: Never smoked Have you smoked in the past 12 months: No Home Medications - Allergies Allergies/Adverse Reactions: Allergies Allergy/AdvReac Type Severity Reaction Status Date / Time No Known Allergies Allergy Verified 12/25/19 22:00 - Home Medications Home Medications: Ambulatory Orders Losartan/Hydrochlorothiazide [Losartan-Hctz 50-12.5 mg Tab] 1 each PO DAILY 01/21/14 Metoprolol Succinate [Toprol XL -] 50 mg PO BID 01/21/14 Omeprazole [Prilosec] 20 mg PO DAILY 01/21/14 Docusate Sodium [Colace -] 100 mg PO BID PRN #14 capsule 03/27/14 Amoxicillin - [Amoxicillin 500mg Capsule -] 1,000 mg PO BID 12/26/19 Clarithromycin 500 mg PO BID 12/26/19 Family Medical History Family History: Denies Review of Systems - Review of Systems Constitutional: reports: No Symptoms Eyes: reports: No Symptoms HENT: reports: No Symptoms Neck: reports: No Symptoms Cardiovascular: reports: No Symptoms Respiratory: reports: No Symptoms Gastrointestinal: reports: Diarrhea, Vomiting Genitourinary: reports: No Symptoms Musculoskeletal: reports: No Symptoms Integumentary: reports: No Symptoms Neurological: reports: No Symptoms Endocrine: reports: No Symptoms Hematology/Lymphatic: reports: No Symptoms Psychiatric: reports: No Symptoms Physical Exam Vital Signs: Vital Signs Temperature 97.6 F 12/26/19 10:12 Pulse Rate 69 12/26/19 10:12 Respiratory Rate 18 12/26/19 10:12 Blood Pressure 147/78 12/26/19 10:12 O2 Sat by Pulse Oximetry (%) 99 12/26/19 10:12 Constitutional: Yes: Calm Eyes: Yes: Conjunctiva Clear HENT: Yes: Atraumatic Neck: Yes: Supple Cardiovascular: Yes: S1, S2 Respiratory: Yes: CTA Bilaterally Gastrointestinal: Yes: Normal Bowel Sounds, Soft Renal/: Yes: WNL Musculoskeletal: Yes: WNL Edema: No Neurological: Yes: Oriented Psychiatric: Yes: Oriented Labs: CBC, BMP 12/25/19 22:35 12/26/19 07:50 Imaging - Results Chest X-ray: Report Reviewed Problem List - Problems (1) Diarrhea Code(s): R19.7 - DIARRHEA, UNSPECIFIED (2) GERD (gastroesophageal reflux disease) Code(s): K21.9 - GASTRO-ESOPHAGEAL REFLUX DISEASE WITHOUT ESOPHAGITIS (3) Hypertension Code(s): I10 - ESSENTIAL (PRIMARY) HYPERTENSION (4) Hyponatremia Code(s): E87.1 - HYPO-OSMOLALITY AND HYPONATREMIA Assessment/Plan Current Medications Generic Name Dose Route Start Last Admin Trade Name Freq PRN Reason Stop Dose Admin Enoxaparin Sodium 40 mg 12/26/19 10:00 12/26/19 10:17 Lovenox - SQ 40 mg DAILY LEDY Administration Sodium Chloride 1,000 mls @ 83 mls/hr 12/26/19 02:15 12/26/19 03:28 Normal Saline - IV 83 mls/hr ASDIR LEDY Administration Losartan Potassium 50 mg 12/26/19 11:45 Cozaar - PO DAILY LEDY Metoprolol Succinate 50 mg 12/26/19 11:30 Toprol Xl - PO BID LEDY Impression 1. hyponatremia 2. diarrhea 3. vomiting 4. htn 5. gerd 6. severe stutter 7. rhabdo Plan - hold hctz - cont saline - pt is responding - avoid a change of sodium of greater than 8 in 24 hours - cont losartan - pt has low urine sodium and low urine osm, which are appropriate responses - cont to monitor cpk, cont fluids
[2019-12-26] MEDS ORDERED: LOSARTAN POTASSIUM 50 MG TABLET (FP) ONE (14:17)
[2019-12-26] MEDS: LOSARTAN POTASSIUM 50 MG TABLET (FP) PO SCH (14:32)
[2019-12-26 14:56] LABS: CALCIUM 8.2 mg/dL (8.5-10.1); CREATININE 0.9 mg/dL (0.55-1.3); POTASSIUM 3.6 mmol/L (3.5-5.1)
[2019-12-26 15:27] LABS: HEMATOCRIT 38.4 % (35.4-49); HEMOGLOBIN 13.2 GM/dL (11.7-16.9); MCH 28.8 pg (25.7-33.7); RBC 4.57 M/mm3 (4.00-5.60)
[2019-12-26 15:28] LABS: EOS % 0.1 % (0-4.5); LYMPH % 11.7 % (8-40); MCHC 34.3 g/dl (32.0-35.9); MEAN PLT VOLUME 10.1 fl (7.5-11.1); MONO % 8.6 % (3.8-10.2); NEUT % 78.6 % (42.8-82.8); PLATELET COUNT 170 K/MM3 (134-434)
[2019-12-26 15:29] LABS: ALBUMIN 3.5 g/dl (3.4-5.0); BLOOD UREA NITROGEN 5.4 mg/dL (7-18); CALCIUM 8.3 mg/dL (8.5-10.1); CREATININE 0.9 mg/dL (0.55-1.3); MAGNESIUM 1.7 mg/dL (1.8-2.4); POTASSIUM 3.8 mmol/L (3.5-5.1); TOT PROT 6.6 g/dl (6.4-8.2)
[2019-12-26 15:29] LABS: PLATELET ESTIMATE ADEQUATE; RDW 13.4 % (11.9-15.9)
[2019-12-26 15:30] LABS: BILIRUBIN,TOTAL 1.2 mg/dL (0.2-1)
[2019-12-26 15:33] LABS: WHITE BLOOD COUNT 9.1 K/mm3 (4.0-10.0)
[2019-12-26] MEDS ORDERED: SODIUM CHLORIDE 1,000 ML IV SCH (16:48)
--- NOTE | 2019-12-26 20:08 | PN ---
Physical Exam: SUBJECTIVE: Patient seen and examined the patient in the ED. In no acute distress. OBJECTIVE: GENERAL: Awake, alert, and fully oriented, in no acute distress. HEAD: Normal with no signs of trauma. EYES: Pupils equal, round and reactive to light, extraocular movements intact, sclera anicteric, conjunctiva clear. No lid lag. ENT: oropharynx clear without exudates. Moist mucous membranes. NECK: Normal range of motion, supple without lymphadenopathy, JVD, or masses. LUNGS: Breath sounds equal, clear to auscultation bilaterally. HEART: Regular rate and rhythm, normal S1 and S2 without murmur, rub or gallop. ABDOMEN: Soft, nontender, not distended, normoactive bowel sounds UPPER EXTREMITIES: 2+ pulses, warm, well-perfused. No edema. strength 5/5 LOWER EXTREMITIES: 2+ pulses, warm, well-perfused. No edema. strength 5/5 SKIN: Warm, dry, no lesions Vital Signs Period Temp Pulse Resp BP Sys/Lam Pulse Ox Last 24 Hr 97.6 F-98.5 F 55-72 16-20 135-160/67-78 97-100 Laboratory Results - last 24 hr 12/25/19 12/25/19 12/25/19 21:59 22:35 22:35 WBC 9.0 RBC 4.52 Hgb 13.0 Hct 37.8 MCV 83.6 MCH 28.7 MCHC 34.3 RDW 13.5 Plt Count 185 MPV 10.2 Absolute Neuts (auto) 7.1 Neutrophils % 77.9 D Lymphocytes % 13.1 D Monocytes % 6.7 Eosinophils % 0.5 Basophils % 1.8 D Nucleated RBC % 0 Platelet Estimate Platelet Comment Sodium 117 L* Potassium 3.6 Chloride 80 L Carbon Dioxide 23 Anion Gap 14 BUN 7.6 Creatinine 0.9 Est GFR (CKD-EPI)AfAm 97.86 Est GFR (CKD-EPI)NonAf 84.43 Random Glucose 116 H Hemoglobin A1c % Serum Osmolality Calcium 8.4 L Phosphorus Magnesium Total Bilirubin 1.3 H AST 58 H ALT 32 Alkaline Phosphatase 54 Creatine Kinase 1007 H Creatine Kinase Index 0.9 CK-MB (CK-2) 9.8 H Troponin I 0.05 Total Protein 6.6 Albumin 3.6 Urine Color Yellow Urine Appearance Clear Urine pH 6.0 Ur Specific [place] 1.010 Urine Protein Negative Urine Glucose (UA) Negative Urine Ketones 1+ H Urine Blood Negative Urine Nitrite Negative Urine Bilirubin Negative Urine Urobilinogen 0.2 Ur Leukocyte Esterase Negative Urine Osmolality Ur Random Sodium Ur Random Urea Nitrogn 12/26/19 12/26/19 12/26/19 01:34 06:00 06:00 WBC RBC Hgb Hct MCV MCH MCHC RDW Plt Count MPV Absolute Neuts (auto) Neutrophils % Lymphocytes % Monocytes % Eosinophils % Basophils % Nucleated RBC % Platelet Estimate Platelet Comment Sodium 117 L* 122 L Potassium 3.6 3.8 Chloride 81 L 86 L Carbon Dioxide 23 24 Anion Gap 13 12 BUN 7.0 5.4 L Creatinine 0.9 0.9 Est GFR (CKD-EPI)AfAm 97.86 97.86 Est GFR (CKD-EPI)NonAf 84.43 84.43 Random Glucose 117 H 99 Hemoglobin A1c % 6.0 Serum Osmolality Calcium 8.2 L 8.3 L Phosphorus 3.0 Magnesium 1.7 L Total Bilirubin 1.2 H AST 51 H ALT 33 Alkaline Phosphatase 56 Creatine Kinase 1237 H 1608 H Creatine Kinase Index 0.8 0.6 CK-MB (CK-2) 10.2 H 9.9 H Troponin I 0.06 H 0.06 H Total Protein 6.6 Albumin 3.5 Urine Color Urine Appearance Urine pH Ur Specific [place] Urine Protein Urine Glucose (UA) Urine Ketones Urine Blood Urine Nitrite Urine Bilirubin Urine Urobilinogen Ur Leukocyte Esterase Urine Osmolality Ur Random Sodium Ur Random Urea Nitrogn 12/26/19 12/26/19 12/26/19 06:30 07:50 07:50 WBC 9.1 RBC 4.57 Hgb 13.2 Hct 38.4 MCV 84.0 MCH 28.8 MCHC 34.3 RDW 13.4 Plt Count 170 MPV 10.1 Absolute Neuts (auto) 7.2 Neutrophils % 78.6 Lymphocytes % 11.7 Monocytes % 8.6 Eosinophils % 0.1 Basophils % 1.0 Nucleated RBC % 0 Platelet Estimate Adequate Platelet Comment No clumping noted Sodium 121 L Potassium 3.8 Chloride 85 L Carbon Dioxide 21 Anion Gap 15 BUN 5.8 L Creatinine 0.9 Est GFR (CKD-EPI)AfAm 97.86 Est GFR (CKD-EPI)NonAf 84.43 Random Glucose 100 Hemoglobin A1c % Serum Osmolality 251 L Calcium 8.9 Phosphorus Magnesium Total Bilirubin AST ALT Alkaline Phosphatase Creatine Kinase QNS Creatine Kinase Index CK-MB (CK-2) Troponin I QNS Total Protein Albumin Urine Color Urine Appearance Urine pH Ur Specific [place] Urine Protein Urine Glucose (UA) Urine Ketones Urine Blood Urine Nitrite Urine Bilirubin Urine Urobilinogen Ur Leukocyte Esterase Urine Osmolality 89 L Ur Random Sodium Ur Random Urea Nitrogn 12/26/19 12/26/19 10:00 14:23 WBC RBC Hgb Hct MCV MCH MCHC RDW Plt Count MPV Absolute Neuts (auto) Neutrophils % Lymphocytes % Monocytes % Eosinophils % Basophils % Nucleated RBC % Platelet Estimate Platelet Comment Sodium Potassium Chloride Carbon Dioxide Anion Gap BUN Creatinine Est GFR (CKD-EPI)AfAm Est GFR (CKD-EPI)NonAf Random Glucose Hemoglobin A1c % Serum Osmolality Calcium Phosphorus Magnesium Total Bilirubin AST ALT Alkaline Phosphatase Creatine Kinase Creatine Kinase Index CK-MB (CK-2) Troponin I Total Protein Albumin Urine Color Urine Appearance Urine pH Ur Specific [place] Urine Protein Urine Glucose (UA) Urine Ketones Urine Blood Urine Nitrite Urine Bilirubin Urine Urobilinogen Ur Leukocyte Esterase Urine Osmolality Ur Random Sodium < 18 L Ur Random Urea Nitrogn 79 L Active Medications Generic Name Dose Route Start Last Admin Trade Name Freq PRN Reason Stop Dose Admin Enoxaparin Sodium 40 mg 12/26/19 10:00 12/26/19 10:17 Lovenox - SQ 40 mg DAILY LEDY Administration Sodium Chloride 1,000 mls @ 100 mls/hr 12/26/19 16:48 Normal Saline - IV ASDIR LEDY Losartan Potassium 50 mg 12/26/19 11:45 12/26/19 14:32 Cozaar - PO 50 mg DAILY LEDY Administration Metoprolol Succinate 50 mg 12/26/19 11:30 12/26/19 14:24 Toprol Xl - PO 50 mg BID LEDY Administration ASSESSMENT/PLAN: Pt is a 74 yo M with PMHx of hypertension, GERD, and severe stutter, who presented to the ED with watery diarrhea x1 day with 6 episodes accompanied by N/V x2 on route to the hospital. Patient admitted for mildly symptomatic, severe hyponatremia (Na 117) and ACS rule out (trops 0.05, then 0.06). Hyponatremia & Hypovolemia -Na 117 on admission > 122 today improving at good rate. Continue to monitor -Likely secondary to diarrhea causing true volume depletion -Goal correction rate = increase 8mEq Na+ in 24 hours to prevent osmotic demyelination syndrome -Consulted nephro (Dr. Pressley) : cont to monitor cpk, cont fluids Rule out ACS -Trop 0.05, 0.06 -CK-MB 9.8 -EKG NSR with Left axis deviation -Admitted to tele for monitoring HTN - Continue home Losartan 50 po daily - Continue metoprolol 50 BID - hold HCTZ GERD/H. Pylori -Held omeprazole, clarithromycin and amoxicillin for H.pylori by PCP, due to concerns for C diff -No protonix as that can increase likelihood of C diff -stool C diff and cultures pending -stool H pylori ag ordered Hypokalemia -resolved Transaminitis -resolved Prophylaxis -Lovenox 40mg SQ daily FEN -NS 100ml/hr -Salt controlled diet Dispo pending Visit type - Emergency Visit Emergency Visit: Yes ED Registration Date: 12/26/19 Care time: The patient presented to the Emergency Department on the above date and was hospitalized for further evaluation of their emergent condition. - New Patient This patient is new to me today: Yes Date on this admission: 12/26/19 - Critical Care Critical Care patient: No - Discharge Referral Referred to [facility] Med P.C.: No ATTENDING PHYSICIAN STATEMENT I saw and evaluated the patient. I reviewed the resident's note and discussed the case with the resident. I agree with the resident's findings and plan as documented. SUBJECTIVE: OBJECTIVE: ASSESSMENT AND PLAN:
--- NOTE | 2019-12-27 08:02 | PN ---
Teaching Attending Note Name of Resident: Sakina Soares ATTENDING PHYSICIAN STATEMENT I saw and evaluated the patient. I reviewed the resident's note and discussed the case with the resident. I agree with the resident's findings and plan as documented. SUBJECTIVE: Patient is comfortable with no acute distress. OBJECTIVE: Vital Signs Temperature 97.9 F 12/27/19 06:00 Pulse Rate 57 L 12/27/19 06:00 Respiratory Rate 18 12/27/19 06:00 Blood Pressure 142/90 12/27/19 06:00 O2 Sat by Pulse Oximetry (%) 97 12/26/19 22:00 PE: per resident's note CBCD WBC 7.2 K/mm3 (4.0-10.0) 12/27/19 08:17 RBC 4.91 M/mm3 (4.00-5.60) 12/27/19 08:17 Hgb 13.9 GM/dL (11.7-16.9) 12/27/19 08:17 Hct 42.1 % (35.4-49) 12/27/19 08:17 MCV 85.7 fl (80-96) 12/27/19 08:17 MCHC 33.1 g/dl (32.0-35.9) 12/27/19 08:17 RDW 13.6 % (11.9-15.9) 12/27/19 08:17 Plt Count 207 K/MM3 (134-434) D 12/27/19 08:17 MPV 9.9 fl (7.5-11.1) 12/27/19 08:17 CMP Sodium 135 mmol/L (136-145) L 12/27/19 08:17 Potassium 4.3 mmol/L (3.5-5.1) 12/27/19 08:17 Chloride 101 mmol/L (98-107) 12/27/19 08:17 Carbon Dioxide 29 mmol/L (21-32) 12/27/19 08:17 Anion Gap 6 MMOL/L (8-16) L 12/27/19 08:17 BUN 7.2 mg/dL (7-18) 12/27/19 08:17 Creatinine 1.0 mg/dL (0.55-1.3) 12/27/19 08:17 Random Glucose 94 mg/dL (74-106) 12/27/19 08:17 Calcium 9.0 mg/dL (8.5-10.1) 12/27/19 08:17 Total Bilirubin 1.2 mg/dL (0.2-1) H 12/26/19 06:00 AST 51 U/L (15-37) H 12/26/19 06:00 ALT 33 U/L (13-61) 12/26/19 06:00 Alkaline Phosphatase 56 U/L (45-117) 12/26/19 06:00 Total Protein 6.6 g/dl (6.4-8.2) 12/26/19 06:00 Albumin 3.5 g/dl (3.4-5.0) 12/26/19 06:00 CARDIAC ENZYMES Creatine Kinase 1672 U/L (26-308) H 12/27/19 08:17 Troponin I QNS 12/26/19 07:50 Current Medications Generic Name Dose Route Start Last Admin Trade Name Freq PRN Reason Stop Dose Admin Enoxaparin Sodium 40 mg 12/26/19 10:00 12/27/19 09:31 Lovenox - SQ 40 mg DAILY [facility] Administration Dextrose 1,000 mls @ 100 mls/hr 12/27/19 14:00 12/27/19 14:02 D5w - IV Not Given [facility] Losartan Potassium 100 mg 12/28/19 10:00 Cozaar - PO DAILY [facility] Metoprolol Succinate 50 mg 12/28/19 10:00 Toprol Xl - PO DAILY [facility] Home Medications Medication Instructions Recorded Losartan/Hydrochlorothiazide 1 each PO DAILY 01/21/14 [Losartan-Hctz 50-12.5 mg Tab] Metoprolol Succinate [Toprol XL -] 50 mg PO BID 01/21/14 Omeprazole [Prilosec] 20 mg PO DAILY 01/21/14 Docusate Sodium [Colace -] 100 mg PO BID PRN #14 capsule 03/27/14 Amoxicillin - [Amoxicillin 500mg 1,000 mg PO BID 12/26/19 Capsule -] Clarithromycin 500 mg PO BID 12/26/19 EKG: NSR, 73, QTc 456 ASSESSMENT AND PLAN: This patient is a 74yom with PMHx of speech disorder(stuttering) , GERD and HTN, with recent diagnosis of H.Pylori (on triple therapy) who presented with diarrhea and was found to have severe hyponatremia. #Severe hypotonic hyponatremia:(with no neurological symptoms) 117--121-->135 today , will switch to D5w at 100ml per hour , due to diarrhea most likely , Hctz is on hold. urine osm is low indicating hypovolemia as etiology. serial BMPs, Nephro on the case. Avoid rapid correction of Na level. Dc Hctz ( advice the patient not to be on it). # HTN: continue losartan # Acute diarrhea: possible due triple antibiotic that the patient was on, r/o COVID. R/o C diff . resolved now, if recurs will send stool cx and c diff. continue IV hydration # recent diagnosis of H.Pylori: resume triple therapy asn an outpatient. DVT Px : Lovenox.
[2019-12-27 08:57] LABS: HEMATOCRIT 42.1 % (35.4-49); HEMOGLOBIN 13.9 GM/dL (11.7-16.9); MCH 28.4 pg (25.7-33.7); MCHC 33.1 g/dl (32.0-35.9); MEAN CELL VOLUME 85.7 fl (80-96); MEAN PLT VOLUME 9.9 fl (7.5-11.1); PLATELET COUNT 207 K/MM3 (134-434); RBC 4.91 M/mm3 (4.00-5.60); RDW 13.6 % (11.9-15.9); WHITE BLOOD COUNT 7.2 K/mm3 (4.0-10.0)
[2019-12-27 09:31] LABS: BLOOD UREA NITROGEN 7.2 mg/dL (7-18); PHOSPHOROUS 3.1 mg/dL (2.5-4.9); POTASSIUM 4.3 mmol/L (3.5-5.1)
[2019-12-27] MEDS: LOSARTAN POTASSIUM 50 MG TABLET (FP) PO SCH (09:31)
[2019-12-27] MEDS: ENOXAPARIN NA (PORCINE) 40 MG/0.4 ML DISP.SYRIN SQ SCH (09:31)
[2019-12-27] MEDS ORDERED: DEXTROSE 5%-WATER - 1,000 ML IV SCH ×2 (12:15→14:00)
[2019-12-27] MEDS ORDERED: LOSARTAN POTASSIUM 50 MG TABLET (FP) PO SCH (14:12)
--- NOTE | 2019-12-27 14:43 | PN ---
Progress Note, Physician History of Present Illness: Pt seen and examined at bedside. He is awake and alert. He says that he feels well. He denies weakness or shortness of breath. - Current Medication List Current Medications: Active Medications Enoxaparin Sodium (Lovenox -) 40 mg SQ DAILY [facility] Last Admin: 12/27/19 09:31 Dose: 40 mg Documented by: Dextrose (D5w -) 1,000 mls @ 100 mls/hr IV ASDIR LEDY Last Admin: 12/27/19 14:02 Dose: Not Given Documented by: Losartan Potassium (Cozaar -) 100 mg PO DAILY LEDY Metoprolol Succinate (Toprol Xl -) 50 mg PO DAILY [facility] - Objective Vital Signs: Vital Signs Temperature 97.8 F 12/27/19 14:00 Pulse Rate 47 L 12/27/19 14:00 Respiratory Rate 18 12/27/19 09:05 Blood Pressure 147/92 12/27/19 14:00 O2 Sat by Pulse Oximetry (%) 97 12/27/19 09:00 Constitutional: Yes: Calm Eyes: Yes: Conjunctiva Clear HENT: Yes: Atraumatic Neck: Yes: Supple Cardiovascular: Yes: S1, S2 Respiratory: Yes: CTA Bilaterally Gastrointestinal: Yes: Soft Genitourinary: Yes: WNL Musculoskeletal: Yes: WNL Edema: No Neurological: Yes: Oriented Psychiatric: Yes: Oriented Labs: CBC, BMP 12/27/19 08:17 12/27/19 08:17 Problem List - Problems (1) Diarrhea Code(s): R19.7 - DIARRHEA, UNSPECIFIED (2) GERD (gastroesophageal reflux disease) Code(s): K21.9 - GASTRO-ESOPHAGEAL REFLUX DISEASE WITHOUT ESOPHAGITIS (3) Hypertension Code(s): I10 - ESSENTIAL (PRIMARY) HYPERTENSION (4) Hyponatremia Code(s): E87.1 - HYPO-OSMOLALITY AND HYPONATREMIA Assessment/Plan Current Medications Generic Name Dose Route Start Last Admin Trade Name Freq PRN Reason Stop Dose Admin Enoxaparin Sodium 40 mg 12/26/19 10:00 12/27/19 09:31 Lovenox - SQ 40 mg DAILY [facility] Administration Dextrose 1,000 mls @ 100 mls/hr 12/27/19 14:00 12/27/19 14:02 D5w - IV Not Given ASDIR LEDY Losartan Potassium 100 mg 12/28/19 10:00 Cozaar - PO DAILY [facility] Metoprolol Succinate 50 mg 12/28/19 10:00 Toprol Xl - PO DAILY [facility] Impression 1. hyponatremia 2. diarrhea 3. vomiting 4. htn 5. gerd 6. severe stutter 7. rhabdo Plan - change in sodium is too rapid - pt autocorrected - saline received can not alone explain change - start d5w to slow rate of change - avoid a change of sodium of greater than 8 in 24 hours - cont losartan - discussed with medical team - cont to monitor cpk
--- NOTE | 2019-12-27 15:17 | PN ---
Physical Exam: SUBJECTIVE: Patient seen and examined bedside. In no acute distress. Reports feeling much better. No episodes of diarrhea since Thursday. OBJECTIVE: Vital Signs Period Temp Pulse Resp BP Sys/Lam Pulse Ox Last 24 Hr 97.7 F-98.3 F 47-64 16-18 129-149/74-92 97-98 GENERAL: Awake, alert, and fully oriented, in no acute distress. HEAD: Normal with no signs of trauma. EYES: PERRL, extraocular movements intact, sclera anicteric, conjunctiva clear. LUNGS: Breath sounds equal, clear to auscultation bilaterally. HEART: Regular rate and rhythm, normal S1 and S2 without murmur, rub or gallop. ABDOMEN: Soft, nontender, not distended, normoactive bowel sounds Laboratory Results - last 24 hr 12/26/19 12/26/19 12/26/19 01:34 06:00 06:00 WBC RBC Hgb Hct MCV MCH MCHC RDW Plt Count MPV Absolute Neuts (auto) Neutrophils % Lymphocytes % Monocytes % Eosinophils % Basophils % Nucleated RBC % Platelet Estimate Platelet Comment Sodium 117 L* 122 L Potassium 3.8 Chloride 86 L Carbon Dioxide 24 Anion Gap 12 BUN 5.4 L Creatinine 0.9 Est GFR (CKD-EPI)AfAm 97.86 Est GFR (CKD-EPI)NonAf 84.43 Random Glucose 99 Hemoglobin A1c % 6.0 Calcium 8.3 L Phosphorus 3.0 Magnesium 1.7 L Total Bilirubin 1.2 H AST 51 H ALT 33 Alkaline Phosphatase 56 Creatine Kinase 1608 H Creatine Kinase Index 0.6 CK-MB (CK-2) 9.9 H Troponin I 0.06 H Total Protein 6.6 Albumin 3.5 Ur Random Creatinine Ur Random Urea Nitrogn COVID-19 (DANA) 12/26/19 12/26/19 12/26/19 07:50 10:30 14:23 WBC 9.1 RBC 4.57 Hgb 13.2 Hct 38.4 MCV 84.0 MCH 28.8 MCHC 34.3 RDW 13.4 Plt Count 170 MPV 10.1 Absolute Neuts (auto) 7.2 Neutrophils % 78.6 Lymphocytes % 11.7 Monocytes % 8.6 Eosinophils % 0.1 Basophils % 1.0 Nucleated RBC % 0 Platelet Estimate Adequate Platelet Comment No clumping noted Sodium Potassium Chloride Carbon Dioxide Anion Gap BUN Creatinine Est GFR (CKD-EPI)AfAm Est GFR (CKD-EPI)NonAf Random Glucose Hemoglobin A1c % Calcium Phosphorus Magnesium Total Bilirubin AST ALT Alkaline Phosphatase Creatine Kinase Creatine Kinase Index CK-MB (CK-2) Troponin I Total Protein Albumin Ur Random Creatinine 20.0 L Ur Random Urea Nitrogn 79 L COVID-19 ([facility]NA) Not detected 12/27/19 12/27/19 08:17 08:17 WBC 7.2 RBC 4.91 Hgb 13.9 Hct 42.1 MCV 85.7 MCH 28.4 MCHC 33.1 RDW 13.6 Plt Count 207 D MPV 9.9 Absolute Neuts (auto) Neutrophils % Lymphocytes % Monocytes % Eosinophils % Basophils % Nucleated RBC % Platelet Estimate Platelet Comment Sodium 135 L Potassium 4.3 Chloride 101 Carbon Dioxide 29 Anion Gap 6 L BUN 7.2 Creatinine 1.0 Est GFR (CKD-EPI)AfAm 86.15 Est GFR (CKD-EPI)NonAf 74.34 Random Glucose 94 Hemoglobin A1c % Calcium 9.0 Phosphorus 3.1 Magnesium 2.0 Total Bilirubin AST ALT Alkaline Phosphatase Creatine Kinase 1672 H Creatine Kinase Index 1.2 CK-MB (CK-2) 21.7 H Troponin I Total Protein Albumin Ur Random Creatinine Ur Random Urea Nitrogn COVID-19 ([facility]) Active Medications Generic Name Dose Route Start Last Admin Trade Name Freq PRN Reason Stop Dose Admin Enoxaparin Sodium 40 mg 12/26/19 10:00 12/27/19 09:31 Lovenox - SQ 40 mg DAILY [facility] Administration Dextrose 1,000 mls @ 100 mls/hr 12/27/19 14:00 12/27/19 14:02 D5w - IV Not Given ASDIR LEDY Losartan Potassium 100 mg 12/28/19 10:00 Cozaar - PO DAILY [facility] Metoprolol Succinate 50 mg 12/28/19 10:00 Toprol Xl - PO DAILY [facility] ASSESSMENT/PLAN: Pt is a 74 yo M with PMHx of hypertension & GERD, who presented to the ED with watery diarrhea x1 day with 6 episodes accompanied by N/V x2 on route to the hospital. Patient admitted for mildly symptomatic, severe hyponatremia (Na 117) and ACS rule out (trops 0.05, then 0.06). Hyponatremia & Hypovolemia -Likely secondary to diarrhea causing true volume depletion -Goal correction rate = increase 8mEq Na+ in 24 hours to prevent osmotic demyelination syndrome - Over corrected from last night 117>>122>>>135: started on D5W with repeat BMP @ 6PM, signed out for night team to f/u -Consulted nephro (Dr. Pressley) continue to trend CPK - been steadily rising since admission HTN - Continue home Losartan 50 po daily - Continue metoprolol 50 switched to 1 a day because of bradycardia, reassess tomorrow - hold HCTZ until Na is corrected and stable GERD/H. Pylori -Held omeprazole, clarithromycin and amoxicillin for H.pylori by PCP, due to concerns for C diff -stool C diff and cultures pending -stool H pylori stool ag ordered -stool samples unable to be collected as patient has not had a bowel movement since Thursday night, so unlikely C.diff - needs to be worked up outpatient in 3-4 weeks for H Pylori stool antigen Hypokalemia -resolved Transaminitis -resolved Prophylaxis -Lovenox 40mg SQ daily FEN -D5W 100ml/hr -Salt controlled diet Dispo home when discharged Visit type - Emergency Visit Emergency Visit: Yes ED Registration Date: 12/26/19 Care time: The patient presented to the Emergency Department on the above date and was hospitalized for further evaluation of their emergent condition. - New Patient This patient is new to me today: No - Critical Care Critical Care patient: No - Discharge Referral Referred to [facility] Med P.C.: No ATTENDING PHYSICIAN STATEMENT I saw and evaluated the patient. I reviewed the resident's note and discussed the case with the resident. I agree with the resident's findings and plan as documented. SUBJECTIVE: OBJECTIVE: ASSESSMENT AND PLAN:
[2019-12-27 19:22] LABS: BLOOD UREA NITROGEN 9.9 mg/dL (7-18); CALCIUM 9.3 mg/dL (8.5-10.1); POTASSIUM 3.9 mmol/L (3.5-5.1)
[2019-12-28 07:32] LABS: HEMATOCRIT 38.1 % (35.4-49); HEMOGLOBIN 12.8 GM/dL (11.7-16.9); MCH 28.7 pg (25.7-33.7); MCHC 33.6 g/dl (32.0-35.9); MEAN CELL VOLUME 85.3 fl (80-96); MEAN PLT VOLUME 9.6 fl (7.5-11.1); PLATELET COUNT 190 K/MM3 (134-434); RBC 4.47 M/mm3 (4.00-5.60); WHITE BLOOD COUNT 6.5 K/mm3 (4.0-10.0)
[2019-12-28 08:04] LABS: BLOOD UREA NITROGEN 8.4 mg/dL (7-18); CALCIUM 8.6 mg/dL (8.5-10.1); CREATININE 0.9 mg/dL (0.55-1.3); PHOSPHOROUS 3.4 mg/dL (2.5-4.9); POTASSIUM 3.9 mmol/L (3.5-5.1)
--- NOTE | 2019-12-28 08:29 | PN ---
Teaching Attending Note Name of Resident: Sakina Soares ATTENDING PHYSICIAN STATEMENT I saw and evaluated the patient. I reviewed the resident's note and discussed the case with the resident. I agree with the resident's findings and plan as documented. SUBJECTIVE: Patient is feeling better with no acute distress. OBJECTIVE: Vital Signs Temperature 98.0 F 12/28/19 05:00 Pulse Rate 48 L 12/28/19 05:00 Respiratory Rate 18 12/28/19 05:00 Blood Pressure 136/77 12/28/19 05:00 O2 Sat by Pulse Oximetry (%) 98 12/28/19 05:00 Initial Vital Signs Temp Pulse Resp BP Pulse Ox 98.5 F 72 20 139/76 98 12/25/19 21:50 12/25/19 21:50 12/25/19 21:50 12/25/19 21:50 12/25/19 21:50 PE: per resident's note stable CBCD WBC 6.5 K/mm3 (4.0-10.0) 12/28/19 06:30 RBC 4.47 M/mm3 (4.00-5.60) 12/28/19 06:30 Hgb 12.8 GM/dL (11.7-16.9) 12/28/19 06:30 Hct 38.1 % (35.4-49) 12/28/19 06:30 MCV 85.3 fl (80-96) 12/28/19 06:30 MCHC 33.6 g/dl (32.0-35.9) 12/28/19 06:30 RDW 14.0 % (11.9-15.9) 12/28/19 06:30 Plt Count 190 K/MM3 (134-434) 12/28/19 06:30 MPV 9.6 fl (7.5-11.1) 12/28/19 06:30 CMP Sodium 137 mmol/L (136-145) 12/28/19 06:30 Potassium 3.9 mmol/L (3.5-5.1) 12/28/19 06:30 Chloride 102 mmol/L (98-107) 12/28/19 06:30 Carbon Dioxide 29 mmol/L (21-32) 12/28/19 06:30 Anion Gap 6 MMOL/L (8-16) L 12/28/19 06:30 BUN 8.4 mg/dL (7-18) 12/28/19 06:30 Creatinine 0.9 mg/dL (0.55-1.3) 12/28/19 06:30 Random Glucose 88 mg/dL (74-106) 12/28/19 06:30 Calcium 8.6 mg/dL (8.5-10.1) 12/28/19 06:30 Total Bilirubin 1.2 mg/dL (0.2-1) H 12/26/19 06:00 AST 51 U/L (15-37) H 12/26/19 06:00 ALT 33 U/L (13-61) 12/26/19 06:00 Alkaline Phosphatase 56 U/L (45-117) 12/26/19 06:00 Total Protein 6.6 g/dl (6.4-8.2) 12/26/19 06:00 Albumin 3.5 g/dl (3.4-5.0) 12/26/19 06:00 CARDIAC ENZYMES Creatine Kinase 932 U/L (26-308) H 12/28/19 06:30 Troponin I QNS 12/26/19 07:50 Current Medications Generic Name Dose Route Start Last Admin Trade Name Freq PRN Reason Stop Dose Admin Enoxaparin Sodium 40 mg 12/26/19 10:00 12/27/19 09:31 Lovenox - SQ 40 mg DAILY [facility] Administration Dextrose 1,000 mls @ 100 mls/hr 12/27/19 14:00 12/27/19 14:02 D5w - IV Not Given [facility] Losartan Potassium 100 mg 12/28/19 10:00 Cozaar - PO DAILY [facility] Metoprolol Succinate 50 mg 12/28/19 10:00 Toprol Xl - PO DAILY [facility] Home Medications Medication Instructions Recorded Losartan/Hydrochlorothiazide 1 each PO DAILY 01/21/14 [Losartan-Hctz 50-12.5 mg Tab] Omeprazole [Prilosec] 20 mg PO DAILY 01/21/14 Docusate Sodium [Colace -] 100 mg PO BID PRN #14 capsule 03/27/14 Amoxicillin - [Amoxicillin 500mg 1,000 mg PO BID 12/26/19 Capsule -] Clarithromycin 500 mg PO BID 12/26/19 Metoprolol Tartrate 50 mg PO BID 12/28/19 EKG: NSR, 73, QTc 456 ASSESSMENT AND PLAN: This patient is a 74yom with PMHx of speech disorder(stuttering) , GERD and HTN, with recent diagnosis of H.Pylori (on triple therapy) who presented with diarrhea and was found to have severe hyponatremia. #Severe hypotonic hyponatremia:(with no neurological symptoms) 1 17--121-->135--137 today , On D5w at 100ml per hour , continue #Acute diarrhea resolved now. Hctz is on hold. possible due triple antibiotic that the patient was on, r/o COVID. R/o C diff . resolved now, if recurs will send stool cx and c diff. continue IV hydration #Acute dehydration resolved: urine osm is low indicating hypovolemia as etiology. serial BMPs, Nephro on the case. Avoid rapid correction of Na level. Dc Hctz ( advice the patient not to be on it). #Acute Rhabdomyolysis: continue IVF, in 900's now, trend # HTN: continue losartan # recent diagnosis of H.Pylori: resume triple therapy as an outpatient. DVT Px : Lovenox. possible dc in am
[2019-12-28] MEDS: LOSARTAN POTASSIUM 50 MG TABLET (FP) PO SCH (09:34)
[2019-12-28] MEDS: ENOXAPARIN NA (PORCINE) 40 MG/0.4 ML DISP.SYRIN SQ SCH (09:34)
[2019-12-28] MEDS: LACTOBACILLUS ACIDOPHILUS 1 TABLET PO SCH (09:37)
--- NOTE | 2019-12-28 11:19 | PN ---
Progress Note, Physician History of Present Illness: Pt seen and examined at bedside. He is awake and alert. He denies shortness of breath. - Current Medication List Current Medications: Active Medications Enoxaparin Sodium (Lovenox -) 40 mg SQ DAILY [facility] Last Admin: 12/28/19 09:34 Dose: 40 mg Documented by: Dextrose (D5w -) 1,000 mls @ 100 mls/hr IV ASDIR [facility] Last Admin: 12/27/19 14:02 Dose: Not Given Documented by: Lactobacillus Acidophilus (Bacid -) 1 tab PO DAILY [facility] Last Admin: 12/28/19 09:37 Dose: 1 tab Documented by: Losartan Potassium (Cozaar -) 100 mg PO DAILY [facility] Last Admin: 12/28/19 09:34 Dose: 100 mg Documented by: Metoprolol Tartrate (Lopressor -) 50 mg PO BID [facility] - Objective Vital Signs: Vital Signs Temperature 98.2 F 12/28/19 08:41 Pulse Rate 52 L 12/28/19 08:41 Respiratory Rate 20 12/28/19 08:41 Blood Pressure 156/82 12/28/19 08:41 O2 Sat by Pulse Oximetry (%) 100 12/28/19 08:41 Constitutional: Yes: Calm Eyes: Yes: Conjunctiva Clear HENT: Yes: Atraumatic Neck: Yes: Supple Cardiovascular: Yes: S1, S2 Respiratory: Yes: CTA Bilaterally Gastrointestinal: Yes: Soft Genitourinary: Yes: WNL Musculoskeletal: Yes: WNL Edema: No Neurological: Yes: Oriented Psychiatric: Yes: Oriented Labs: CBC, BMP 12/28/19 06:30 12/28/19 06:30 Problem List - Problems (1) Diarrhea Code(s): R19.7 - DIARRHEA, UNSPECIFIED (2) GERD (gastroesophageal reflux disease) Code(s): K21.9 - GASTRO-ESOPHAGEAL REFLUX DISEASE WITHOUT ESOPHAGITIS (3) Hypertension Code(s): I10 - ESSENTIAL (PRIMARY) HYPERTENSION (4) Hyponatremia Code(s): E87.1 - HYPO-OSMOLALITY AND HYPONATREMIA Assessment/Plan Current Medications Generic Name Dose Route Start Last Admin Trade Name Freq PRN Reason Stop Dose Admin Enoxaparin Sodium 40 mg 12/26/19 10:00 12/28/19 09:34 Lovenox - SQ 40 mg DAILY [facility] Administration Dextrose 1,000 mls @ 100 mls/hr 12/27/19 14:00 12/27/19 14:02 D5w - IV Not Given ASDIR [facility] Lactobacillus Acidophilus 1 tab 12/28/19 10:00 12/28/19 09:37 Bacid - PO 1 tab DAILY [facility] Administration Losartan Potassium 100 mg 12/28/19 10:00 12/28/19 09:34 Cozaar - PO 100 mg DAILY [facility] Administration Metoprolol Tartrate 50 mg 12/29/19 10:00 Lopressor - PO BID [facility] Impression 1. hyponatremia 2. diarrhea 3. vomiting 4. htn 5. gerd 6. severe stutter 7. rhabdo Plan - cont d5w, can decrease rate - sodium stabilizing - wound not restart thiazide - cpk is improving - diarrhea resolved - avoid a change of sodium of greater than 8 in 24 hours - cont losartan
[2019-12-28 14:25] LABS: BLOOD UREA NITROGEN 7.4 mg/dL (7-18); CALCIUM 8.9 mg/dL (8.5-10.1); CREATININE 1.1 mg/dL (0.55-1.3); POTASSIUM 3.8 mmol/L (3.5-5.1)
--- NOTE | 2019-12-28 18:51 | PN ---
Physical Exam: SUBJECTIVE: Patient seen and examined bedside. Reports feeling much better. No events overnight. OBJECTIVE: Vital Signs Period Temp Pulse Resp BP Sys/Lam Pulse Ox Last 24 Hr 97.2 F-98.2 F 47-57 18-20 136-156/73-87 98-100 GENERAL: Awake, alert, and fully oriented, in no acute distress. HEAD: Normal with no signs of trauma. EYES: PERRL, extraocular movements intact, sclera anicteric, conjunctiva clear. LUNGS: Breath sounds equal, clear to auscultation bilaterally. HEART: Regular rate and rhythm, normal S1 and S2 without murmur, rub or gallop. ABDOMEN: Soft, nontender, not distended, normoactive bowel sounds Laboratory Results - last 24 hr 12/27/19 12/28/19 12/28/19 18:10 06:30 06:30 WBC 6.5 RBC 4.47 Hgb 12.8 Hct 38.1 MCV 85.3 MCH 28.7 MCHC 33.6 RDW 14.0 Plt Count 190 MPV 9.6 Sodium 136 137 Potassium 3.9 3.9 Chloride 100 102 Carbon Dioxide 27 29 Anion Gap 9 6 L BUN 9.9 8.4 Creatinine 1.0 0.9 Est GFR (CKD-EPI)AfAm 86.15 97.86 Est GFR (CKD-EPI)NonAf 74.34 84.43 Random Glucose 71 L 88 Calcium 9.3 8.6 Phosphorus 3.4 Magnesium 2.0 Creatine Kinase 932 H Creatine Kinase Index 1.3 CK-MB (CK-2) 12.6 H Stool Occult Blood 12/28/19 12/28/19 08:40 13:50 WBC RBC Hgb Hct MCV MCH MCHC RDW Plt Count MPV Sodium 135 L Potassium 3.8 Chloride 101 Carbon Dioxide 27 Anion Gap 8 BUN 7.4 Creatinine 1.1 Est GFR (CKD-EPI)AfAm 76.78 Est GFR (CKD-EPI)NonAf 66.24 Random Glucose 91 Calcium 8.9 Phosphorus Magnesium Creatine Kinase Creatine Kinase Index CK-MB (CK-2) Stool Occult Blood Negative Active Medications Generic Name Dose Route Start Last Admin Trade Name Freq PRN Reason Stop Dose Admin Enoxaparin Sodium 40 mg 12/26/19 10:00 12/28/19 09:34 Lovenox - SQ 40 mg DAILY [facility] Administration Lactobacillus Acidophilus 1 tab 12/28/19 10:00 12/28/19 09:37 Bacid - PO 1 tab DAILY [facility] Administration Losartan Potassium 100 mg 12/28/19 10:00 12/28/19 09:34 Cozaar - PO 100 mg DAILY [facility] Administration Metoprolol Tartrate 50 mg 12/29/19 10:00 Lopressor - PO BID [facility] ASSESSMENT/PLAN: Pt is a 74 yo M with PMHx of hypertension & GERD, who presented to the ED with watery diarrhea x1 day with 6 episodes accompanied by N/V x2 on route to the hospital. Patient admitted for mildly symptomatic, severe hyponatremia (Na 117) and ACS rule out (trops 0.05, then 0.06). Hyponatremia & Hypovolemia -Likely secondary to diarrhea causing true volume depletion -Goal correction rate = increase 8mEq Na+ in 24 hours to prevent osmotic demyelination syndrome - Over corrected from last night 117>>122>>>135: started on D5W with repeat BMP @ 6PM, signed out for night team to f/u -Consulted nephro (Dr. Pressley) continue to trend CPK - decreased today to 1672 >> 972 Na repeat AM 135 6 am and 135 @ 2 pm - stabilized - held off on discharge today until CK further resolves - continue IVF for CK HTN - Continue home Losartan 100mg daily - Continue metoprolol 50 BID - hold HCTZ until Na is corrected and stable GERD/H. Pylori -Held omeprazole, clarithromycin and amoxicillin for H.pylori by PCP, due to concerns for C diff -stool C diff and cultures pending -stool H pylori stool ag ordered -stool samples unable to be collected as patient has not had a bowel movement since Thursday night, so unlikely C.diff - needs to be worked up outpatient in 3-4 weeks for H Pylori stool antigen Hypokalemia -resolved Transaminitis -resolved Prophylaxis -Lovenox 40mg SQ daily FEN -D5W 100ml/hr -Salt controlled diet Dispo home when discharged Visit type - Emergency Visit Emergency Visit: Yes ED Registration Date: 12/26/19 Care time: The patient presented to the Emergency Department on the above date and was hospitalized for further evaluation of their emergent condition. - New Patient This patient is new to me today: No - Critical Care Critical Care patient: No - Discharge Referral Referred to [facility] Med [facility].C[facility] No ATTENDING PHYSICIAN STATEMENT I saw and evaluated the patient. I reviewed the resident's note and discussed the case with the resident. I agree with the resident's findings and plan as documented. SUBJECTIVE: OBJECTIVE: ASSESSMENT AND PLAN:
[2019-12-28 19:09] LABS: BLOOD UREA NITROGEN 10.2 mg/dL (7-18); CALCIUM 9.1 mg/dL (8.5-10.1); POTASSIUM 4.1 mmol/L (3.5-5.1)
[2019-12-28] MEDS ORDERED: SODIUM CHLORIDE 1,000 ML IV SCH (19:45)
[2019-12-29 07:47] LABS: HEMATOCRIT 41.1 % (35.4-49); HEMOGLOBIN 13.8 GM/dL (11.7-16.9); MCH 29.4 pg (25.7-33.7); MCHC 33.7 g/dl (32.0-35.9); MEAN CELL VOLUME 87.3 fl (80-96); PLATELET COUNT 209 K/MM3 (134-434); RDW 14.2 % (11.9-15.9); WHITE BLOOD COUNT 7.1 K/mm3 (4.0-10.0)
[2019-12-29 08:05] LABS: BLOOD UREA NITROGEN 10.9 mg/dL (7-18); CALCIUM 9.1 mg/dL (8.5-10.1); MAGNESIUM 1.9 mg/dL (1.8-2.4); PHOSPHOROUS 4.1 mg/dL (2.5-4.9); POTASSIUM 3.9 mmol/L (3.5-5.1)
[2019-12-29] MEDS: ENOXAPARIN NA (PORCINE) 40 MG/0.4 ML DISP.SYRIN SQ SCH (09:26)
[2019-12-29] MEDS: LOSARTAN POTASSIUM 50 MG TABLET (FP) PO SCH (09:26)
[2019-12-29] MEDS: LACTOBACILLUS ACIDOPHILUS 1 TABLET PO SCH (09:27)
[2019-12-29] MEDS ORDERED: METOPROLOL TARTRATE 50 MG TABLET (FP) PO SCH (10:00)
--- NOTE | 2019-12-29 10:29 | PN ---
Progress Note, Physician History of Present Illness: Pt seen and examined at bedside. He is awake and alert. He is eager to go home. - Current Medication List Current Medications: Active Medications Enoxaparin Sodium (Lovenox -) 40 mg SQ DAILY [facility] Last Admin: 12/29/19 09:26 Dose: 40 mg Documented by: Sodium Chloride (Normal Saline -) 1,000 mls @ 50 mls/hr IV ASDIR [facility] Stop: 12/29/19 19:35 Last Admin: 12/28/19 19:57 Dose: 50 mls/hr Documented by: Lactobacillus Acidophilus (Bacid -) 1 tab PO DAILY [facility] Last Admin: 12/29/19 09:27 Dose: 1 tab Documented by: Losartan Potassium (Cozaar -) 100 mg PO DAILY [facility] Last Admin: 12/29/19 09:26 Dose: 100 mg Documented by: Metoprolol Tartrate (Lopressor -) 50 mg PO BID [facility] Last Admin: 12/29/19 09:26 Dose: Not Given Documented by: - Objective Vital Signs: Vital Signs Temperature 97.9 F 12/29/19 05:00 Pulse Rate 55 L 12/29/19 05:00 Respiratory Rate 18 12/29/19 05:00 Blood Pressure 150/68 12/29/19 05:00 O2 Sat by Pulse Oximetry (%) 97 12/29/19 05:00 Constitutional: Yes: Calm Eyes: Yes: Conjunctiva Clear HENT: Yes: Atraumatic Neck: Yes: Supple Cardiovascular: Yes: S1, S2 Respiratory: Yes: CTA Bilaterally Gastrointestinal: Yes: Normal Bowel Sounds, Soft Genitourinary: Yes: WNL Musculoskeletal: Yes: WNL Edema: No Neurological: Yes: Oriented Psychiatric: Yes: Oriented Labs: CBC, BMP 12/29/19 06:58 12/29/19 06:58 Problem List - Problems (1) Diarrhea Code(s): R19.7 - DIARRHEA, UNSPECIFIED (2) GERD (gastroesophageal reflux disease) Code(s): K21.9 - GASTRO-ESOPHAGEAL REFLUX DISEASE WITHOUT ESOPHAGITIS (3) Hypertension Code(s): I10 - ESSENTIAL (PRIMARY) HYPERTENSION (4) Hyponatremia Code(s): E87.1 - HYPO-OSMOLALITY AND HYPONATREMIA Assessment/Plan Current Medications Generic Name Dose Route Start Last Admin Trade Name Freq PRN Reason Stop Dose Admin Enoxaparin Sodium 40 mg 12/26/19 10:00 12/29/19 09:26 Lovenox - SQ 40 mg DAILY [facility] Administration Sodium Chloride 1,000 mls @ 50 mls/hr 12/28/19 19:45 12/28/19 19:57 Normal Saline - IV 12/29/19 19:35 50 mls/hr ASD[facility] Administration Lactobacillus Acidophilus 1 tab 12/28/19 10:00 12/29/19 09:27 Bacid - PO 1 tab DAILY [facility] Administration Losartan Potassium 100 mg 12/28/19 10:00 12/29/19 09:26 Cozaar - PO 100 mg DAILY [facility] Administration Metoprolol Tartrate 50 mg 12/29/19 10:00 12/29/19 09:26 Lopressor - PO Not Given BID [facility] Impression 1. hyponatremia 2. diarrhea 3. vomiting 4. htn 5. gerd 6. severe stutter 7. rhabdo Plan - sodium stable - can d/c fluids - do not restart hctz - cpk improved - outpt follow up - cont losartan
[2019-12-29 13:07] LABS: STOOL PH 6.5 (7.0-7.5)
--- NOTE | 2019-12-29 13:32 | DS ---
Physical Exam: SUBJECTIVE: Patient seen and examined bedside. In no distress. No events over night. OBJECTIVE: Vital Signs Period Temp Pulse Resp BP Sys/Lam Pulse Ox Last 24 Hr 97.4 F-99 F 47-60 16-20 147-154/68-87 97-98 PHYSICAL EXAM GENERAL: Awake, alert, and fully oriented, in no acute distress. HEAD: Normal with no signs of trauma. EYES: PERRL, extraocular movements intact, sclera anicteric, conjunctiva clear. LUNGS: Breath sounds equal, clear to auscultation bilaterally. HEART: Regular rate and rhythm, normal S1 and S2 without murmur, rub or gallop. ABDOMEN: Soft, nontender, not distended, normoactive bowel sounds LABS Laboratory Tests 12/25/19 12/25/19 12/25/19 21:59 22:35 22:35 WBC 9.0 RBC 4.52 Hgb 13.0 Hct 37.8 MCV 83.6 MCH 28.7 MCHC 34.3 RDW 13.5 Plt Count 185 MPV 10.2 Absolute Neuts (auto) 7.1 Neutrophils % 77.9 D Lymphocytes % 13.1 D Monocytes % 6.7 Eosinophils % 0.5 Basophils % 1.8 D Nucleated RBC % 0 Platelet Estimate Platelet Comment Sodium 117 L* Potassium 3.6 Chloride 80 L Carbon Dioxide 23 Anion Gap 14 BUN 7.6 Creatinine 0.9 Est GFR (CKD-EPI)AfAm 97.86 Est GFR (CKD-EPI)NonAf 84.43 Random Glucose 116 H Hemoglobin A1c % Serum Osmolality Calcium 8.4 L Phosphorus Magnesium Total Bilirubin 1.3 H AST 58 H ALT 32 Alkaline Phosphatase 54 Creatine Kinase 1007 H Creatine Kinase Index 0.9 CK-MB (CK-2) 9.8 H Troponin I 0.05 Total Protein 6.6 Albumin 3.6 Urine Color Yellow Urine Appearance Clear Urine pH 6.0 Ur Specific [place] 1.010 Urine Protein Negative Urine Glucose (UA) Negative Urine Ketones 1+ H Urine Blood Negative Urine Nitrite Negative Urine Bilirubin Negative Urine Urobilinogen 0.2 Ur Leukocyte Esterase Negative Urine Osmolality Ur Random Creatinine Ur Random Sodium Ur Random Urea Nitrogn Stool pH Stool Occult Blood COVID-19 (DANA) 12/26/19 12/26/19 12/26/19 01:34 06:00 06:00 WBC RBC Hgb Hct MCV MCH MCHC RDW Plt Count MPV Absolute Neuts (auto) Neutrophils % Lymphocytes % Monocytes % Eosinophils % Basophils % Nucleated RBC % Platelet Estimate Platelet Comment Sodium 117 L* 122 L Potassium 3.6 3.8 Chloride 81 L 86 L Carbon Dioxide 23 24 Anion Gap 13 12 BUN 7.0 5.4 L Creatinine 0.9 0.9 Est GFR (CKD-EPI)AfAm 97.86 97.86 Est GFR (CKD-EPI)NonAf 84.43 84.43 Random Glucose 117 H 99 Hemoglobin A1c % 6.0 Serum Osmolality Calcium 8.2 L 8.3 L Phosphorus 3.0 Magnesium 1.7 L Total Bilirubin 1.2 H AST 51 H ALT 33 Alkaline Phosphatase 56 Creatine Kinase 1237 H 1608 H Creatine Kinase Index 0.8 0.6 CK-MB (CK-2) 10.2 H 9.9 H Troponin I 0.06 H 0.06 H Total Protein 6.6 Albumin 3.5 Urine Color Urine Appearance Urine pH Ur Specific [place] Urine Protein Urine Glucose (UA) Urine Ketones Urine Blood Urine Nitrite Urine Bilirubin Urine Urobilinogen Ur Leukocyte Esterase Urine Osmolality Ur Random Creatinine Ur Random Sodium Ur Random Urea Nitrogn Stool pH Stool Occult Blood COVID-19 (DANA) 12/26/19 12/26/19 12/26/19 06:30 07:50 07:50 WBC 9.1 RBC 4.57 Hgb 13.2 Hct 38.4 MCV 84.0 MCH 28.8 MCHC 34.3 RDW 13.4 Plt Count 170 MPV 10.1 Absolute Neuts (auto) 7.2 Neutrophils % 78.6 Lymphocytes % 11.7 Monocytes % 8.6 Eosinophils % 0.1 Basophils % 1.0 Nucleated RBC % 0 Platelet Estimate Adequate Platelet Comment No clumping noted Sodium 121 L Potassium 3.8 Chloride 85 L Carbon Dioxide 21 Anion Gap 15 BUN 5.8 L Creatinine 0.9 Est GFR (CKD-EPI)AfAm 97.86 Est GFR (CKD-EPI)NonAf 84.43 Random Glucose 100 Hemoglobin A1c % Serum Osmolality 251 L Calcium 8.9 Phosphorus Magnesium Total Bilirubin AST ALT Alkaline Phosphatase Creatine Kinase QNS Creatine Kinase Index CK-MB (CK-2) Troponin I QNS Total Protein Albumin Urine Color Urine Appearance Urine pH Ur Specific [place] Urine Protein Urine Glucose (UA) Urine Ketones Urine Blood Urine Nitrite Urine Bilirubin Urine Urobilinogen Ur Leukocyte Esterase Urine Osmolality 89 L Ur Random Creatinine Ur Random Sodium Ur Random Urea Nitrogn Stool pH Stool Occult Blood COVID-19 (DANA) 12/26/19 12/26/19 12/26/19 10:00 10:30 14:23 WBC RBC Hgb Hct MCV MCH MCHC RDW Plt Count MPV Absolute Neuts (auto) Neutrophils % Lymphocytes % Monocytes % Eosinophils % Basophils % Nucleated RBC % Platelet Estimate Platelet Comment Sodium Potassium Chloride Carbon Dioxide Anion Gap BUN Creatinine Est GFR (CKD-EPI)AfAm Est GFR (CKD-EPI)NonAf Random Glucose Hemoglobin A1c % Serum Osmolality Calcium Phosphorus Magnesium Total Bilirubin AST ALT Alkaline Phosphatase Creatine Kinase Creatine Kinase Index CK-MB (CK-2) Troponin I Total Protein Albumin Urine Color Urine Appearance Urine pH Ur Specific [place] Urine Protein Urine Glucose (UA) Urine Ketones Urine Blood Urine Nitrite Urine Bilirubin Urine Urobilinogen Ur Leukocyte Esterase Urine Osmolality Ur Random Creatinine 20.0 L Ur Random Sodium < 18 L Ur Random Urea Nitrogn 79 L Stool pH Stool Occult Blood COVID-19 (DANA) Not detected 12/27/19 12/27/19 12/27/19 08:17 08:17 18:10 WBC 7.2 RBC 4.91 Hgb 13.9 Hct 42.1 MCV 85.7 MCH 28.4 MCHC 33.1 RDW 13.6 Plt Count 207 D MPV 9.9 Absolute Neuts (auto) Neutrophils % Lymphocytes % Monocytes % Eosinophils % Basophils % Nucleated RBC % Platelet Estimate Platelet Comment Sodium 135 L 136 Potassium 4.3 3.9 Chloride 101 100 Carbon Dioxide 29 27 Anion Gap 6 L 9 BUN 7.2 9.9 Creatinine 1.0 1.0 Est GFR (CKD-EPI)AfAm 86.15 86.15 Est GFR (CKD-EPI)NonAf 74.34 74.34 Random Glucose 94 71 L Hemoglobin A1c % Serum Osmolality Calcium 9.0 9.3 Phosphorus 3.1 Magnesium 2.0 Total Bilirubin AST ALT Alkaline Phosphatase Creatine Kinase 1672 H Creatine Kinase Index 1.2 CK-MB (CK-2) 21.7 H Troponin I Total Protein Albumin Urine Color Urine Appearance Urine pH Ur Specific [place] Urine Protein Urine Glucose (UA) Urine Ketones Urine Blood Urine Nitrite Urine Bilirubin Urine Urobilinogen Ur Leukocyte Esterase Urine Osmolality Ur Random Creatinine Ur Random Sodium Ur Random Urea Nitrogn Stool pH Stool Occult Blood COVID-19 (DANA) 12/28/19 12/28/19 12/28/19 06:30 06:30 08:40 WBC 6.5 RBC 4.47 Hgb 12.8 Hct 38.1 MCV 85.3 MCH 28.7 MCHC 33.6 RDW 14.0 Plt Count 190 MPV 9.6 Absolute Neuts (auto) Neutrophils % Lymphocytes % Monocytes % Eosinophils % Basophils % Nucleated RBC % Platelet Estimate Platelet Comment Sodium 137 Potassium 3.9 Chloride 102 Carbon Dioxide 29 Anion Gap 6 L BUN 8.4 Creatinine 0.9 Est GFR (CKD-EPI)AfAm 97.86 Est GFR (CKD-EPI)NonAf 84.43 Random Glucose 88 Hemoglobin A1c % Serum Osmolality Calcium 8.6 Phosphorus 3.4 Magnesium 2.0 Total Bilirubin AST ALT Alkaline Phosphatase Creatine Kinase 932 H Creatine Kinase Index 1.3 CK-MB (CK-2) 12.6 H Troponin I Total Protein Albumin Urine Color Urine Appearance Urine pH Ur Specific [place] Urine Protein Urine Glucose (UA) Urine Ketones Urine Blood Urine Nitrite Urine Bilirubin Urine Urobilinogen Ur Leukocyte Esterase Urine Osmolality Ur Random Creatinine Ur Random Sodium Ur Random Urea Nitrogn Stool pH Stool Occult Blood Negative COVID-19 (DANA) 12/28/19 12/28/19 12/28/19 08:40 13:50 17:50 WBC RBC Hgb Hct MCV MCH MCHC RDW Plt Count MPV Absolute Neuts (auto) Neutrophils % Lymphocytes % Monocytes % Eosinophils % Basophils % Nucleated RBC % Platelet Estimate Platelet Comment Sodium 135 L 135 L Potassium 3.8 4.1 Chloride 101 100 Carbon Dioxide 27 26 Anion Gap 8 9 BUN 7.4 10.2 Creatinine 1.1 1.0 Est GFR (CKD-EPI)AfAm 76.78 86.15 Est GFR (CKD-EPI)NonAf 66.24 74.34 Random Glucose 91 86 Hemoglobin A1c % Serum Osmolality Calcium 8.9 9.1 Phosphorus Magnesium Total Bilirubin AST ALT Alkaline Phosphatase Creatine Kinase Creatine Kinase Index CK-MB (CK-2) Troponin I Total Protein Albumin Urine Color Urine Appearance Urine pH Ur Specific [place] Urine Protein Urine Glucose (UA) Urine Ketones Urine Blood Urine Nitrite Urine Bilirubin Urine Urobilinogen Ur Leukocyte Esterase Urine Osmolality Ur Random Creatinine Ur Random Sodium Ur Random Urea Nitrogn Stool pH 6.5 L Stool Occult Blood COVID-19 (DANA) 12/29/19 12/29/19 06:58 06:58 WBC 7.1 RBC 4.70 Hgb 13.8 Hct 41.1 MCV 87.3 MCH 29.4 MCHC 33.7 RDW 14.2 Plt Count 209 MPV 10.0 Absolute Neuts (auto) Neutrophils % Lymphocytes % Monocytes % Eosinophils % Basophils % Nucleated RBC % Platelet Estimate Platelet Comment Sodium 139 Potassium 3.9 Chloride 103 Carbon Dioxide 30 Anion Gap 5 L BUN 10.9 Creatinine 1.0 Est GFR (CKD-EPI)AfAm 86.15 Est GFR (CKD-EPI)NonAf 74.34 Random Glucose 81 Hemoglobin A1c % Serum Osmolality Calcium 9.1 Phosphorus 4.1 Magnesium 1.9 Total Bilirubin AST ALT Alkaline Phosphatase Creatine Kinase 574 H Creatine Kinase Index 1.1 CK-MB (CK-2) 6.6 H Troponin I Total Protein Albumin Urine Color Urine Appearance Urine pH Ur Specific [place] Urine Protein Urine Glucose (UA) Urine Ketones Urine Blood Urine Nitrite Urine Bilirubin Urine Urobilinogen Ur Leukocyte Esterase Urine Osmolality Ur Random Creatinine Ur Random Sodium Ur Random Urea Nitrogn Stool pH Stool Occult Blood COVID-19 (DANA) HOSPITAL COURSE: Patient presented to the ED by ambulance after 6x episodes of diarrhea accompanied by N/V x2 on route to the hospital. While in hospital he was found to have severe hyponatremia and mildly elevated troponins. He was admitted to tele for correction of sodium and to r/o ACS. He was given fluids and his losartan 50/Hctz 25 was discontinued and changed to losartan 100 mg to stop further sodium loss. Before his diarrhea started, the patient had started taking triple therapy for unconfirmed H.pylori which was also discontinued. He was advised to see GI in 3-4 weeks for a confirmative H pylori test with either stool ag or breath test. He was also advised to follow up with his primary care doctor for med reconciliation and to repeat blood work in 1-2 weeks Date of Admission:12/26/19 Date of Discharge: 12/29/19 Minutes to complete discharge: 36 Discharge Summary Problems reviewed: Yes Reason For Visit: HYPONATREMIA Current Active Problems Diarrhea (Acute) GERD (gastroesophageal reflux disease) (Acute) Hypertension (Acute) Hypokalemia (Acute) Hyponatremia (Acute) Nausea & vomiting (Acute) Transaminitis (Acute) Condition: Stable - Instructions Diet, Activity, Other Instructions: Visit: You came to the emergency room for diarrhea and vomiting. You were treated with IV fluids. Follow up Dr. Clemons - Chief Console Operator in 3-4 weeks after discharge for H. Pylori testing Primary care physician in 1-2 weeks after being discharged for follow up care. You will need repeat lab testing. Medications: Continue to take probiotics (lactobacillus) daily for 1 month to promote your gut health. You may take Colace 200 mg at bedtime. This is over the counter. Please stop the three new medications you were given for your stomach Stop Amoxicillin Stop Clarithromycin Stop Omeprazole Please do NOT take your blood pressure medication with hydrochlorothiazide. Please take Losartan 100 mg daily. You may continue your metoprolol. If for any reason your diarrhea reoccurs, or you have a fever, blood in your stool, please return to the Emergency Room. Referrals: Lex Clemons MD [Staff Physician] - Disposition: HOME - Home Medications Comprehensive Discharge Medication List: Ambulatory Orders Docusate Sodium [Colace -] 100 mg PO BID PRN #14 capsule 03/27/14 Lactobacillus Acidophilus [Bacid -] 1 tab PO DAILY 30 Days #30 tab 12/28/19 Metoprolol Tartrate 50 mg PO BID 12/28/19 Losartan Potassium [Cozaar -] 100 mg PO DAILY 30 Days #30 tablet 12/29/19 This patient is new to me today: No Emergency Visit: Yes ED Registration Date: 12/26/19 Care time: The patient presented to the Emergency Department on the above date and was hospitalized for further evaluation of their emergent condition. Critical Care patient: No - Discharge Referral Referred to [facility] No ATTENDING PHYSICIAN STATEMENT I saw and evaluated the patient. I reviewed the resident's note and discussed the case with the resident. I agree with the resident's findings and plan as documented. SUBJECTIVE: OBJECTIVE: ASSESSMENT AND PLAN:
[2019-12-29 13:47] VITALS: BP 132/77; PULSE 68; TEMP 98.3
== END 2019-12-29 14:07 | disposition home or self-care (01) | DRG 641 ==
LOC: JER 21:42 → JERBED 12-26 00:31 → J4W 12-26 21:36
PROVIDERS: ADMIT Internal Medicine; ATTEND Internal Medicine
DX: E87.1 Hypo-osmolality and hyponatremia (principal); M62.82 Rhabdomyolysis; R74.0 Nonspecific elevation of levels of transaminase and lactic acid dehydrogenase [LDH]; E86.1 Hypovolemia; E87.6 Hypokalemia; F98.5 Adult onset fluency disorder; I10 Essential (primary) hypertension; K52.9 Noninfective gastroenteritis and colitis, unspecified; T36.95XA Adverse effect of unspecified systemic antibiotic, initial encounter; K21.9 Gastro-esophageal reflux disease without esophagitis
CPT/HCPCS: 36415; 71045-TC-FY; 80048; 80053; 81003; 82272; 82438; 82550; 82553; 82565; 83036; 83735; 83930; 83935; 83986; 84100; 84300; 84302; 84484; 84540; 84999; 85025; 85027; 87045; 87046; 87186; 87205; 87324; 87449; 93005; 93010; 97116-GP; 97161-GP; 99285-25; U0003

== ENCOUNTER 2020-01-06 21:57 | Emergency (ER) | payer OTHER ==
[2020-01-06 22:04] VITALS: BMI 22.1
--- NOTE | 2020-01-06 22:05 | PDOC ---
Rapid Medical Evaluation Chief Complaint: Headache Time Seen by Provider: 01/06/20 22:00 Medical Evaluation: Allergies Allergy/AdvReac Type Severity Reaction Status Date / Time No Known Allergies Allergy Verified 12/25/19 22:00 01/06/20 22:01 Pt presents for evaluation of a headache for one hour. States that he tried to ambulate from the couch to the kitchen and got very light headed and felt like he was going to fall. Denies fevers, chills, chest pain, diff breathing and abdominal pain. Exam: No gross neuro deficits Orders: Pre-syncope work up Pt to proceed to the ER for further evaluation Discharge Disposition - Diagnosis Lightheaded - Referrals - Patient Instructions - Post Discharge Activity
--- NOTE | 2020-01-06 22:13 | PDOC ---
Attending Attestation - Resident Resident Name: Fredi Chen - HPI HPI: 01/07/20 02:34 Pt presents to the ED complaining of a brief episode of lightheadness and mild R parietal DICKINSON that lasted minutes and now has completely resolved. Denies current complaints. Attributes his symptoms to his apartment being too hot. Patient does report that he has a history of intermittent headache. States that this headache was different, although cannot say how. - Physicial Exam PE: 01/07/20 02:36 Agree with resident exam. patient is alert and oriented and in no acute distress. Neuro: speaks with stutter which is chronic. CN grossly intact. Ambulatory in the ED with normal gait. Cv: rrr no m/r/g Pulm: cta b/l - Medical Decision Making 01/07/20 02:38 Pt presents to the ED complaining of light headness and mild DICKINSON that have now resolved. Labs checked to rule out electrolyte disturbance and are negative. CT head checked to rule out intracranial bleed and is negative. Will discharge home with instructions to follow up with PCP. Discharge - Discharge Information Problems reviewed: Yes Clinical Impression/Diagnosis: Lightheaded Condition: Improved Disposition: HOME - Admission Yes - Follow up/Referral Referrals: [facility] [place] [facility] at [place] [Provider Group] - Patient Discharge Instructions Patient Printed Discharge Instructions: DI for Orthostatic Hypotension Additional Instructions: Please make a follow up appointment with a primary care doctor (referral provided here). Please keep yourself well hydrated and nourished as much as possible. If you experience any new, worsening, or concerning symptoms, including headache, dizziness, loss of consciousness, fall, weakness, numbness, tingling, or any other concerns, please return to the emergency department. - Post Discharge Activity
[2020-01-06] MEDS ORDERED: SODIUM CHLORIDE 0.9% 500 ML INFUS.BAG IV ONE (22:52)
[2020-01-06] MEDS ORDERED: ACETAMINOPHEN 1000 MG/100 ML VIAL (NON FORMULARY) IVPB ONE (22:58)
[2020-01-06] MEDS ORDERED: ACETAMINOPHEN INJECTION 100 ML IVPB ONE (23:25)
--- NOTE | 2020-01-06 23:40 | PDOC ---
History of Present Illness - General Chief Complaint: Headache Stated Complaint: headache Time Seen by Provider: 01/06/20 22:00 - History of Present Illness Initial Comments: Matt Milton Jr is a 74 y/o male with PMH significant for HTN, presenting today with lightheadedness. Reports that he had gotten up from his couch today and was walking over to his TV when he began feeling lightheaded. No LOC, no fall. No headache, no vision changes. No vertigo. No chest pain/shortness of breath. No abdominal pain. No heart palpitations. No leg swelling. No nausea/vomiting. No diarrhea/dysuria. Does not report a decrease in appetite. Past History - Medical History Allergies/Adverse Reactions: Allergies Allergy/AdvReac Type Severity Reaction Status Date / Time No Known Allergies Allergy Verified 01/06/20 22:04 Home Medications: Ambulatory Orders Docusate Sodium [Colace -] 100 mg PO BID PRN #14 capsule 03/27/14 Lactobacillus Acidophilus [Bacid -] 1 tab PO DAILY 30 Days #30 tab 12/28/19 Metoprolol Tartrate 50 mg PO BID 12/28/19 Losartan Potassium [Cozaar -] 100 mg PO DAILY 30 Days #30 tablet 12/29/19 COPD: No Diabetes: Yes GI Disorders: Yes (ACID REFLUX) HTN: Yes - Psycho-Social/Smoking History Smoking History: Never smoked Have you smoked in the past 12 months: No - Substance Abuse Hx (Audit-C & DAST Scrn) How often the patient has a drink containing alcohol: Never Score: In Men: 4 or > Positive; In Women: 3 or > Positive: 0 Screen Result (Pos requires Nsg. Audit-10AR): Negative Review of Systems - Review of Systems Comments:: GENERAL/CONSTITUTIONAL: No fever or chills. No weakness._ HEAD, EYES, EARS, NOSE AND THROAT: No change in vision. No change in hearing. No sore throat._ CARDIOVASCULAR: No chest pain or shortness of breath_ RESPIRATORY: Denies cough, hemoptysis_ GASTROINTESTINAL: No nausea, vomiting, diarrhea or constipation._ GENITOURINARY: No dysuria, frequency, or change in urination._ MUSCULOSKELETAL: No joint or muscle swelling or pain. No neck or back pain._ SKIN: No rash_ NEUROLOGIC: Reports mild headache. Reports lightheadedness. No vertigo, loss of consciousness, or change in strength/sensation._ ENDOCRINE: No increased thirst. No abnormal weight change_ HEMATOLOGIC/LYMPHATIC: No anemia, easy bleeding, or history of blood clots._ ALLERGIC/IMMUNOLOGIC: No hives or skin allergy._ *Physical Exam - Vital Signs Last Vital Signs Temp Pulse Resp BP Pulse Ox 97.8 F 56 L 16 146/80 100 01/07/20 02:57 01/07/20 02:57 01/07/20 02:57 01/07/20 02:57 01/07/20 02:57 - Physical Exam GENERAL: Awake, alert, and oriented to person/place/time, in no acute distress_ HEAD: No signs of trauma, normocephalic, atraumatic _ EYES: PERRLA, EOMI, sclera anicteric, conjunctiva clear_ ENT: Hearing grossly normal, nares patent, oropharynx clear without exudates. No uvular deviation. Moist mucosa_ NECK: Normal ROM, supple, no lymphadenopathy, JVD, or masses_ LUNGS: No distress, speaks in full sentences, clear to auscultation bilaterally _ HEART: Regular rate and rhythm, normal S1 and S2, no murmurs appreciated, peripheral pulses normal and equal bilaterally._ ABDOMEN: Soft, nontender, normoactive bowel sounds. No guarding, no rebound. No masses_ EXTREMITIES: Normal inspection, Normal range of motion, no edema. No clubbing or cyanosis_ NEUROLOGICAL: Cranial nerves II through XII grossly intact. Normal speech, normal gait, no focal sensorimotor deficits _ SKIN: Warm, Dry, normal turgor, no rashes or lesions noted_ ED Treatment Course - LABORATORY CBC & Chemistry Diagram: 01/07/20 00:15 01/07/20 00:15 - ADDITIONAL ORDERS Additional order review: 01/07/20 00:15 Urine Culture - Final Urine - Urine Clean Catch NO GROWTH OBTAINED 01/07/20 00:15 RBC 4.57 MCV 87.5 MCHC 33.5 RDW 14.7 MPV 9.4 Neutrophils % 70.8 Lymphocytes % 20.1 D Monocytes % 5.9 Eosinophils % 2.5 D Basophils % 0.7 - Medications Given in the ED: ED Medications Discontinued Medications Generic Name Dose Route Start Last Admin Trade Name Freq PRN Reason Stop Dose Admin Acetaminophen 1,000 mg 01/06/20 22:58 01/07/20 00:19 Ofirmev Injection - IVPB 01/06/20 22:59 1,000 mg ONCE ONE Administration Sodium Chloride 1,000 ml 01/06/20 22:52 01/07/20 00:19 Normal Saline - IV 01/06/20 22:53 1,000 ml ONCE ONE Administration Medical Decision Making - Medical Decision Making 74M hx of HTN presenting today with lightheadedness after getting up from his couch and walking to the TV. No fall/LOC/head trauma. No nausea/vomiting. Neuro exam shows no focal findings. -cbc, cmp -ekg, trop, cxr -fluids -tylenol -coags 01/06/20 23:39 EKG shows 71 bpm,. sinus rhythm with 1st degree AV block, no axis deviation, OR 222, QTc 417, no ST elevation/depression. Prior EKG reviewed. 01/07/20 00:34 CXR negative for acute intrathoracic pathology. Pt s/o to Dr. Marx pending labs and reevaluation. Discharge - Discharge Information Problems reviewed: Yes Clinical Impression/Diagnosis: Lightheaded Condition: Improved Disposition: HOME - Follow up/Referral Referrals: [facility] [place] [facility] [place]Provider Group] - Patient Discharge Instructions Patient Printed Discharge Instructions: DI for Orthostatic Hypotension Additional Instructions: Please make a follow up appointment with a primary care doctor (referral provided here). Please keep yourself well hydrated and nourished as much as possible. If you experience any new, worsening, or concerning symptoms, including headache, dizziness, loss of consciousness, fall, weakness, numbness, tingling, or any other concerns, please return to the emergency department. - Post Discharge Activity
[2020-01-07 00:27] LABS: BASO % 0.7 % (0-2.0); EOS % 2.5 % (0-4.5); HEMOGLOBIN 13.4 GM/dL (11.7-16.9); LYMPH % 20.1 % (8-40); MCH 29.3 pg (25.7-33.7); MCHC 33.5 g/dl (32.0-35.9); MEAN CELL VOLUME 87.5 fl (80-96); MEAN PLT VOLUME 9.4 fl (7.5-11.1); MONO % 5.9 % (3.8-10.2); NEUT % 70.8 % (42.8-82.8); PLATELET COUNT 230 K/MM3 (134-434); RBC 4.57 M/mm3 (4.00-5.60); RDW 14.7 % (11.9-15.9); WHITE BLOOD COUNT 8.4 K/mm3 (4.0-10.0)
[2020-01-07 00:29] LABS: URINE APPEARANCE CLEAR; URINE BILIRUBIN NEGATIVE (NEGATIVE); URINE COLOR YELLOW; URINE GLUCOSE (UA) NEGATIVE (NEGATIVE); URINE KETONE NEGATIVE (NEGATIVE); URINE LEUK ESTERASE NEGATIVE (NEGATIVE); URINE NITRITE NEGATIVE (NEGATIVE); URINE PROTEIN NEGATIVE (NEGATIVE); URINE UROBILINOGEN 0.2 mg/dL (0.2-1.0)
[2020-01-07 00:46] LABS: INR 1.04 (0.83-1.09); PROTHROMBIN TIME (PATIENT) 12.3 SEC (9.7-13.0)
[2020-01-07 00:53] LABS: ALBUMIN 3.6 g/dl (3.4-5.0); BILIRUBIN,TOTAL 0.3 mg/dL (0.2-1); BLOOD UREA NITROGEN 19.6 mg/dL (7-18); CALCIUM 9.2 mg/dL (8.5-10.1); CREATININE 1.1 mg/dL (0.55-1.3); POTASSIUM 4.2 mmol/L (3.5-5.1)
--- NOTE | 2020-01-07 02:38 | PDOC ---
*Physical Exam - Vital Signs Last Vital Signs Temp Pulse Resp BP Pulse Ox 98.3 F 63 18 169/86 99 01/07/20 01:11 01/07/20 01:11 01/07/20 01:11 01/07/20 01:11 01/07/20 01:11 ED Treatment Course - LABORATORY CBC & Chemistry Diagram: 01/07/20 00:15 01/07/20 00:15 - ADDITIONAL ORDERS Additional order review: Laboratory Results 01/07/20 01/07/20 01/07/20 00:15 00:15 00:15 PT with INR INR PTT (Actin FS) 32.6 Sodium 139 Potassium 4.2 Chloride 106 Carbon Dioxide 27 Anion Gap 6 L BUN 19.6 H Creatinine 1.1 Est GFR (CKD-EPI)AfAm 76.78 Est GFR (CKD-EPI)NonAf 66.24 Random Glucose 89 Calcium 9.2 Total Bilirubin 0.3 AST 20 ALT 42 Alkaline Phosphatase 56 Creatine Kinase 84 Troponin I 0.04 Total Protein 7.0 Albumin 3.6 Urine Color Yellow Urine Appearance Clear Urine pH 5.0 Ur Specific [place] 1.008 L Urine Protein Negative Urine Glucose (UA) Negative Urine Ketones Negative Urine Blood Negative Urine Nitrite Negative Urine Bilirubin Negative Urine Urobilinogen 0.2 Ur Leukocyte Esterase Negative 01/07/20 00:15 PT with INR 12.30 INR 1.04 PTT (Actin FS) Sodium Potassium Chloride Carbon Dioxide Anion Gap BUN Creatinine Est GFR (CKD-EPI)AfAm Est GFR (CKD-EPI)NonAf Random Glucose Calcium Total Bilirubin AST ALT Alkaline Phosphatase Creatine Kinase Troponin I Total Protein Albumin Urine Color Urine Appearance Urine pH Ur Specific [place] Urine Protein Urine Glucose (UA) Urine Ketones Urine Blood Urine Nitrite Urine Bilirubin Urine Urobilinogen Ur Leukocyte Esterase 01/07/20 00:15 RBC 4.57 MCV 87.5 MCHC 33.5 RDW 14.7 MPV 9.4 Neutrophils % 70.8 Lymphocytes % 20.1 D Monocytes % 5.9 Eosinophils % 2.5 D Basophils % 0.7 - RADIOLOGY Radiology Studies Ordered: Category Date Time Status HEAD CT WITHOUT CONTRAST [CT] Stat CT Scan 01/07/20 01:45 Taken - Medications Given in the ED: ED Medications Discontinued Medications Generic Name Dose Route Start Last Admin Trade Name Freq PRN Reason Stop Dose Admin Acetaminophen 1,000 mg 01/06/20 22:58 01/07/20 00:19 Ofirmev Injection - IVPB 01/06/20 22:59 1,000 mg ONCE ONE Administration Sodium Chloride 1,000 ml 01/06/20 22:52 01/07/20 00:19 Normal Saline - IV 01/06/20 22:53 1,000 ml ONCE ONE Administration Medical Decision Making - Medical Decision Making Pt was signed out to me by resident Dr. Chen, who explained the presentation, ED course, any pending results, and needed interventions. Pending results include head CT, reassessment. Pt is currently stable and is lying comfortably. Labs WNL Trop <.02 with no new EKG changes Head CT without acute pathology Pt ambulatory in ED with stable gait and without assistance. All symptoms have resolved. Pt safe for d/c to home with PCP f/u. Strict return precautions provided with pt understanding. 01/07/20 02:36 Discharge - Discharge Information Problems reviewed: Yes Clinical Impression/Diagnosis: Lightheaded Condition: Improved Disposition: HOME - Admission No - Follow up/Referral Referrals: [facility] [place] Internal [facility] at [place] [Provider Group] - Patient Discharge Instructions Patient Printed Discharge Instructions: DI for Orthostatic Hypotension Additional Instructions: Please make a follow up appointment with a primary care doctor (referral provided here). Please keep yourself well hydrated and nourished as much as possible. If you experience any new, worsening, or concerning symptoms, including headache, dizziness, loss of consciousness, fall, weakness, numbness, tingling, or any other concerns, please return to the emergency department. - Post Discharge Activity
[2020-01-07 03:07] VITALS: BP 146/80; PULSE 56; TEMP 97.8
--- NOTE | 2020-01-08 17:33 | EKG ---
Test Reason : Blood Pressure : / mmHG Vent. Rate : 071 BPM Atrial Rate : 071 BPM P-R Int : 222 ms QRS Dur : 094 ms QT Int : 384 ms P-R-T Axes : 086 -24 050 degrees QTc Int : 417 ms SINUS RHYTHM WITH 1ST DEGREE A-V BLOCK OTHERWISE NORMAL ECG WHEN COMPARED WITH ECG OF 26-DEC-2019 08:51, [place] INTERVAL HAS INCREASED Confirmed by MD Will, Shekhar ([id number]) on 01/08/2020 5:33:20 PM Referred By: Confirmed By:Shekhar Solis MD
== END 2020-01-07 03:40 | disposition home or self-care (01) ==
LOC: JER 21:57
PROC: 3E0333Z Introduction of Anti-inflammatory into Peripheral Vein, Percutaneous Approach (ICD-10-PCS; principal; 2020-01-06)
DX: R42 Dizziness and giddiness (principal)
CPT/HCPCS: 36415; 70450-TC; 71046-TC-FY; 80053; 81003; 82550; 84484; 85025; 85610; 85730; 87086; 93005; 93010; 99285-25; J0131

== ENCOUNTER 2020-02-23 16:19 | Emergency (ER) | payer OTHER ==
[2020-02-23 16:38] VITALS: BP 168/92; PULSE 68; TEMP 98.1; BMI 22.1
--- NOTE | 2020-02-23 17:29 | PDOC ---
History of Present Illness - General Chief Complaint: Blood Pressure Problem Stated Complaint: HIGH BP Time Seen by Provider: 02/23/20 16:50 History Source: Patient Exam Limitations: Clinical Condition - History of Present Illness Initial Comments: 02/23/20 17:36 Patient with a history of hypertension on metoprolol and hydralazine presented with complaint of 2 months history of persistent elevated blood pressure. Patient reports seeing PCP a week ago and told PCP about blood pressure problem but was not addressed by PCP. Denies any symptoms. Denies chest pain, shortness of breath, palpitation, weakness, headache, nausea, vomiting, blurry vision or change in vision. Patient came in today because he wants his blood pressure controlled. Is this a multiple visit Asthma Patient?: No Timing/Duration: other (2 months) Past History - Medical History Allergies/Adverse Reactions: Allergies Allergy/AdvReac Type Severity Reaction Status Date / Time No Known Allergies Allergy Verified 02/23/20 16:37 Home Medications: Ambulatory Orders Metoprolol Tartrate 50 mg PO DAILY 12/28/19 Blood Pressure Test Kit-Wrist [Blood Pressure Kit] 1 each MC BID #1 kit 02/23/20 Hydrochlorothiazide [Hctz -] 25 mg PO DAILY #30 tablet 02/23/20 COPD: No Diabetes: Yes GI Disorders: Yes (ACID REFLUX) HTN: Yes - Psycho-Social/Smoking History Smoking History: Never smoked Have you smoked in the past 12 months: No Information on smoking cessation initiated: No - Substance Abuse Hx (Audit-C & DAST Scrn) How often the patient has a drink containing alcohol: Never Score: In Men: 4 or > Positive; In Women: 3 or > Positive: 0 Screen Result (Pos requires Nsg. Audit-10AR): Negative In the last yr the pt used illegal drug/Rx for NonMed reason: No Score: Yes response is considered Positive: 0 Screen Result (Positive result requires Nsg. DAST-10): Negative Review of Systems - Review of Systems Able to Perform ROS?: Yes Is the patient limited Citizen [place] proficient: No Constitutional: No: Chills, Fever, Malaise HEENTM: No: Symptoms Reported, See HPI, Eye Pain, Blurred Vision, Tearing, Recent change in vision, Double Vision, Cataracts, Ear Pain, Ocular Prothesis, Ear Discharge, Nose Pain, Nose Congestion, Tinnitus, Nose Bleeding, Hearing Loss, Throat Pain, Throat Swelling, Mouth Pain, Dental Problems, Difficulty Swallowing, Mouth Swelling, Other Respiratory: No: Symptoms reported, See HPI, Cough, Orthopnea, Shortness of Breath, SOB with Exertion, SOB at Rest, Stridor, Wheezing, Productive cough, Hemoptysis, Other Cardiac (ROS): No: Symptoms Reported, See HPI, Chest Pain, Edema, Irregular Heart Rate, Lightheadedness, Palpitations, Syncope, Chest Tightness, Other ABD/GI: No: Symptoms Reported, See HPI, Nausea, Vomiting Musculoskeletal: No: Symptoms Reported Integumentary: No: Symptoms Reported Neurological: No: Symptoms reported, Headache, Weakness, Dizziness All Other Systems: Reviewed and Negative *Physical Exam - Vital Signs Last Vital Signs Temp Pulse Resp BP Pulse Ox 98.1 F 68 18 168/92 99 02/23/20 16:34 02/23/20 16:34 02/23/20 16:34 02/23/20 16:34 02/23/20 16:34 - Physical Exam 02/23/20 17:39 GENERAL: Well developed, well nourished. Awake and alert. No acute distress. HEENT: Normocephalic, atraumatic. PERRLA, EOMI. No conjunctival pallor. Sclera are non-icteric. Moist mucous membranes. Oropharynx is clear. NECK: Supple. Full ROM. CARDIOVASCULAR: Regular rate and rhythm. No murmurs, rubs, or gallops. Distal pulses are 2+ and symmetric. PULMONARY: No evidence of respiratory distress. Lungs clear to auscultation bilaterally. No wheezing, rales or rhonchi. ABDOMINAL: Soft. Non-tender. Non-distended. No rebound or guarding. No organomegaly. Normoactive bowel sounds. MUSCULOSKELETAL Normal range of motion at all joints. SKIN: Warm and dry. Normal capillary refill. No rashes. No jaundice. No cyanosis NEUROLOGICAL: Alert, awake, appropriate. Gait is normal without ataxia. PSYCHIATRIC: Cooperative. Good eye contact. Appropriate mood General Appearance: Yes: Nourished, Appropriately Dressed. No: Apparent Distress Medical Decision Making - Medical Decision Making 02/23/20 17:37 Patient with a history of hypertension on metoprolol and hydralazine presented with complaint of 2 months history of persistent elevated blood pressure. Patient reports seeing PCP a week ago and told PCP about blood pressure problem but was not addressed by PCP. Denies any symptoms. Denies chest pain, shortness of breath, palpitation, weakness, headache, nausea, vomiting, blurry vision or change in vision. Patient came in today because he wants his blood pressure controlled. Clinical exam unremarkable with normal cardio and lung exam. Patient in no acute distress. BP is with mild elevated BP of 169/90. Patient asymptomatic at this time. Discussed with patient will switch up blood pressure medication to help better control BPs. Patient advised to stop the hydralazine and will replace the hydralazine with hydrochlorothiazide and patient will continue home metoprolol. Patient advised to keep blood pressure log and referral given to basting machine operator for management of hypertension. Patient left department without complication Discharge - Discharge Information Problems reviewed: Yes Clinical Impression/Diagnosis: Hypertension Qualifiers: Hypertension type: essential hypertension Qualified Code(s): I10 - Essential (primary) hypertension Condition: Stable Disposition: HOME - Admission No - Additional Discharge Information Prescriptions: Blood Pressure Test Kit-Wrist [Blood Pressure Kit] 1 each MC BID #1 kit Hydrochlorothiazide [Hctz -] 25 mg PO DAILY #30 tablet - Follow up/Referral Referrals: Kingsley Chen MD [Staff Physician] - Jacob Zuniga MD [Staff Physician] - - Patient Discharge Instructions Patient Printed Discharge Instructions: DI for High Blood Pressure, How to Monitor Your Blood Pressure at Home Additional Instructions: Discontinued taking hydralazine for blood pressure and take prescribed new medication with metoprolol for blood pressure. Do blood pressure check every day in the morning and at night and keep a log of your blood pressure measurement and follow-up with referred basting machine operator and primary care as soon as possible - Post Discharge Activity
== END 2020-02-23 17:35 | disposition home or self-care (01) ==
LOC: JER 16:19
DX: I10 Essential (primary) hypertension (principal)
CPT/HCPCS: 99282-25

== ENCOUNTER 2020-02-28 04:54 | Day surgery (SDC) | payer OTHER ==
[2020-02-23 16:36] VITALS: BMI 22.1
--- OUTSIDE RECORDS SUMMARY | 2020-02-28 05:01 | XMS ---
:[address] [facility] Care Team Providers Name Role Phone Jonatan Madrid Unavailable Jonatan Madrid Unavailable CABRAL PREFLIGHT INSPECTOR, DAVIS Unavailable CABRAL PREFLIGHT INSPECTOR, DAVIS Unavailable CABRAL PREFLIGHT INSPECTOR, DAVIS Unavailable CABRAL PREFLIGHT INSPECTOR, DAVIS Unavailable TAQUERIA MATHEW MD IP Unavailable PRIYANKA DANIELLE, IP Unavailable PRIYANKA DANIELLE, IP Unavailable PRIYANKA DANIELLE, IP Unavailable PRIYANKA DANIELLE, IP Unavailable PRIYANKA DANIELLE, IP Unavailable AJ HUERTA Unavailable Unavailable JESUS DANIELLE Unavailable Unavailable JESUS DANIELLE Unavailable Unavailable JSEUS DANIELLE Unavailable Unavailable JESUS DANIELLE Unavailable Unavailable JESUS DANIELLE Unavailable Unavailable JESUS DANIELLE Unavailable Unavailable JESUS DANIELLE Unavailable Unavailable Susan RN Unavailable KACHAPPILLY, TABLE TOP TILE SETTER Unavailable Unavailable KACHAPPILLY, TABLE TOP TILE SETTER Unavailable Unavailable KACHAPPILLY, TABLE TOP TILE SETTER Unavailable Unavailable KACHAPPILLY, TABLE TOP TILE SETTER Unavailable Unavailable KACHAPPILLY, TABLE TOP TILE SETTER Unavailable Unavailable RESHMA, R Unavailable Unavailable ASA DANIELLE Unavailable WARREN DANIELLE Unavailable WARREN DANIELLE Unavailable WARREN DANIELLE Unavailable WARREN DANIELLE Unavailable WARREN DANIELLE Unavailable PAZ DDS Unavailable PADMA LOPEZ Unavailable INEZ DANIELLE Unavailable DENISE HERNANDEZ Unavailable Re-disclosure Warning The records that you are about to access may contain information from federally- assisted alcohol or drug abuse programs. If such information is present, then the following federally mandated warning applies: This information has been disclosed to you from records protected by federal confidentiality rules (42 CFR part 2). The federal rules prohibit you from making any further disclosure of this information unless further disclosure is expressly permitted by the written consent of the person to whom it pertains or as otherwise permitted by 42 CFR part 2. A general authorization for the release of medical or other information is NOT sufficient for this purpose. The Federal rules restrict any use of the information to criminally investigate or prosecute any alcohol or drug abuse patient.The records that you are about to access may contain highly sensitive health information, the redisclosure of which is protected by Article 27-F of the [place] State Public Health law. If you continue you may haveaccess to information: Regarding HIV / AIDS; Provided by facilities licensed or operated by the [facility] Office of Mental Health; or Provided by the [facility] Office for People With Developmental Disabilities. If such information is present, then the following [facility] mandated warning applies: This information has been disclosed to you from confidential records which are protected by state law. State law prohibits you from making any further disclosure of this information without the specific written consent of the person to whom it pertains, or as otherwise permitted by law. Any unauthorized further disclosure in violation of state law may result in a fine or senior care sentence or both. A general authorization for the release of medical or other information is NOT sufficient authorization for further disclosure. Allergies and Adverse Reactions Type Description Substance Reaction Status Data Source(s ) Allergy to No Known Allergies No known GREENW AY ([facility] substance allergies [facility] ) Allergy to No Known Allergies No known GREENW AY ([facility] substance allergies [facility] ([facility] ) Allergy to No Known Allergies No known GREENW AY ([facility] substance allergies [facility] ) Allergy to No Known Allergies No known GREENW AY ([facility] substance allergies [facility] ) Allergy to No Known Allergies No known GREENW AY ([facility] substance allergies [facility] ) Allergy to No Known Allergies No known GREENW AY ([facility] substance allergies [facility] ) Allergy to No Known Allergies No known GREENW AY ([facility] substance allergies [facility] ) Allergy to No Known Allergies No known GREENW AY ([facility] substance allergies [facility] ) Allergy to No Known Allergies No known GREENW AY ([facility] substance allergies [facility] ) Allergy to No Known Allergies No known GREENW AY ([facility] substance allergies [facility] ) Allergy to No Known Allergies No known GREENW AY ([facility] substance allergies [facility] ) Allergy to No Known Allergies No known GREENW AY ([facility] substance allergies [facility] ([facility] ) Allergy to No Known Allergies No known GREENW AY ([facility] substance allergies [facility] ) Encounters Encounter Providers Location Date Indications Data Source(s ) Outpatient<td Attender: Renea 01/02/20 Helicobacter Pylori HARINDER GONZALEZ ([facility] ID="encounter [facility] 20 (h. Pylori) Braden on TypeDescripti PREFLIGHT INSPECTOR 09:30:00 InfectionEssential [place] onID0">GB AM EDT - [facility]</td>< 01/02/20 td>DAVISRITA CABRAL 11:59:00 PREFLIGHT INSPECTOR</td><td>G PM EDT [facility]</td><t d>01/02/2020< /td><td><cont ent ID="encounter DiagnosisID0- 0">Essential Hypertension< /content>, <content ID="encounter DiagnosisID0- 1">Helicobact er Pylori (h. Pylori) Infection</co ntent></td> Helicobacter Pylori (h. Pylori) Infectio n Essential Hypertension Outpatient<td Attender: [facility] 12/28/2019 [place] ID="encounterTypeDescriptionID1">*[facility] 05:01:00 P M ([place] Show*</td><td>DAVIS CABRAL [facility] Center EDT - Neighborhood PREFLIGHT INSPECTOR</td><td>[facility] 12/28/2019 [facility]</td><td>12/28/2019</td><td></td> 11:59:0 0 PM Center) EDT Outpatient<td Attender: [facility] 12/23/2019 [place] ID="encounterTypeDescriptionID2">[facility] 09:45:00 AM o ([place] WALK-IN</td><td>DAVIS CABRAL [facility] Center EDT - n Neighborhood PREFLIGHT INSPECTOR</td><td>[facility] 12/23/2019 [facility]</td><td>12/23/2019</td><td><vikas 01:44: 45 PM t Center) nt EDT i ID="encounterDiagnosisID2-0">Helicobacte p r Pylori (h. Pylori) a Infection</content>, <content t ID="encounterDiagnosisID2-1">Constipatio i n</content></td> o n H e l i c o b a c t e r P y l o r i ( h . P y l o r i ) I n f e c t i o n C o n s t i p a t i o n H e l i c o b a c t e r P y l o r i ( h . P y l o r i ) I n f e c t i o n Constipation Helicobacter Pylori (h. Pylori) Infectio n Constipation Helicobacter Pylori (h. Pylori) Infectio n Outpatient<td Attender: [facility] 12/14/2019 Routine History [facility] ID="encounterTypeDescriptionID3">COMPLETE [facility] 10:00:00 AM and Physical (Blade Hernandez PHYSICAL EXAM</td><td>DAVIS CABRAL [facility] Center EDT - Adult (18 - 64 Neighborhood PREFLIGHT INSPECTOR</td><td>[facility] 12/14/2019 Yrs)Pr [facility]</td><td>12/14/2019</td><td><content 10:5 8:09 AM Med Standardized Center) ID="encounterDiagnosisID3-0">Preventive Med EDT Depression Standardized Depression Screening: Negative Screening: For Symptoms</content>, <content Neg ative For ID="encounterDiagnosisID3-1">Routine SymptomsRoutine History and Physical Adult (18 - 64 History and Yrs)</content></td> Physical Adult (18 - 64 Yrs)Preventive Med Standardized Depression Screening: Negative For SymptomsRoutine History and Physical Adult (18 - 64 Yrs)Preventive Med Standardized Depression Screening: Negative For Symptoms Routine History and Physical Adult (18 - 64 Yrs) Preventive Med Standardized Depression S creening: Negative For Symptoms Routine History and Physical Adult (18 - 64 Yrs) Preventive Med Standardized Depression S creening: Negative For Symptoms Routine History and Physical Adult (18 - 64 Yrs) Preventive Med Standardized Depression S creening: Negative For Symptoms Outpatient<td Attender: [facility] 11/15/2019 [place] ID="encounterTypeDescriptionID4">[facility] ([place] SERVICES</td><td>[facility] Center EDT - Neighborhood SW</td><td>[facility] 11/15/2019 Health Center</td><td>11/15/2019</td><td></td> 11:59:0 0 PM Center) EDT Outpatient<td Attender: [facility] 07/29/2019 [place] ID="encounterTypeDescriptionID5">*No [facility] 04:50:00 P M ([place] Show*</td><td>DAVIS CABRAL [facility] Center EST - Neighborhood PREFLIGHT INSPECTOR</td><td>[facility] 07/29/2019 Health Center</td><td>07/29/2019</td><td></td> 11:59:0 0 PM Center) EST Outpatient<td Attender: [facility] 07/05/2019 [place] ID="encounterTypeDescriptionID6">*No [facility] 07:00:00 P M ([place] Show*</td><td>DAVIS CABRAL [facility] Center EST - Neighborhood PREFLIGHT INSPECTOR</td><td>[facility] 07/05/2019 Health Center</td><td>07/05/2019</td><td></td> 11:59:0 0 PM Center) EST Outpatient Attender: 05/18/2019 [place] [id number] 10:36:00 AM [facility] EST Care HStreaming RAdmitter: [id number] LATASHA-Edison GEIGER R Outpatient Attender: 05/10/2019 [place] [id number] 10:01:00 AM [facility] EST [employer] RAdmitter: [id number] LATASHA-Edison GEIGER, R Outpatient Attender: 05/10/2019 [place] [id number] 09:34:00 AM [facility] [employer] RAdmitter: [id number] LATASHA-Edison GEIGER R Outpatient<td Attender: [facility] 05/03/2019 [place] ID="encounterTypeDescriptionID7">[facility] 10:15:0 0 AM y ([place] VISIT</td><td>DAVIS CABRAL [facility] EST - p Neighborhood PREFLIGHT INSPECTOR</td><td>[facility] 05/03/2019 e Health Center</td><td>05/03/2019</td><td><content 11:2 0:56 AM r Center) ID="encounterDiagnosisID7-0">Cutaneous EST l Autosensitization</content>, <content i ID="encounterDiagnosisID7-1">Hyperlipidemi p a</content></td> i d e m i a C u t a n e o u s A u t o s e n s i t i z a t i o n H y p e r l i p i d e m i a C u t a n e o u s A u t o s e n s i t i z a t i o n H y p e r l i p i d e m i a C u t a n e o u s A u t o s e n s i t i z a t i o n H y p e r l i p i d e m i a C u t a n e o u s A u t o s e n s i t i z a t i o n H y p e r l i p i d e m i a C u t a n e o u s A u t o s e n s i t i z a t i o n Hyperlipidemia Cutaneous Autosensitization Hyperlipidemia Cutaneous Autosensitization Hyperlipidemia Cutaneous Autosensitization Hyperlipidemia Cutaneous Autosensitization Hyperlipidemia Cutaneous Autosensitization Outpatient<td ID="encounterTypeDescriptionID8">OFFICE Attender: [facility] 04/22/2019 HyperlipidemiaHyperlipidemiaHyperlipidemiaHyperlipidemiaHyperlipidemiaHyperlipid emiaEssential [place] VISIT</td><td>DAVIS CABRAL [facility]</td><td>[facility] 10:45:00 AM Hypertension BenignEssential Hypertensio n BenignEssential Hypertension BenignEssential ([facility]</td><td>04/22/2019</td><td><content CABRAL [facility] Center EST - Hypertension BenignEssential Hypertension BenignEssential Hypertension Benign Neighborhood ID="encounterDiagnosisID8-0">Essential Hypertension 04/22/2019 Health Benign</content>, <content 11:57:17 AM Center) ID="encounterDiagnosisID8-1">Hyperlipidemia</content></td> EST Hyperlipidemia Hyperlipidemia Hyperlipidemia Hyperlipidemia Hyperlipidemia Hyperlipidemia Essential 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 Benign Outpatient Attender: [id number] 04/12/2019 [facility] RESHMA, 10:12:00 AM T Health Care RAdmitter: [id number] [employer] JUSTICE Emergency Attender: BRADLEY 04/09/2019 [facility] CAROLAdmitter: BRADLEY, 01:29:00 PM EDT Health Care [employer] TOOTH PAIN Outpatient<td Attender: [facility] 04/08/2019 Glucose GUDELIA ID="encounterTypeDescriptionID9">OFFICE [facility] 1 0:45:00 AM IntoleranceGlucose ([place] VISIT</td><td>DAVIS CABRAL PREFLIGHT INSPECTOR Center EDT - Intolera nceGlucose Neighborhood PREFLIGHT INSPECTOR</td><td>[facility] 04/08/2019 Intole ranceGlucose [facility] Center</td><td>04/08/2019</td><td><content 11:1 9:56 AM IntoleranceGlucose Center) ID="encounterDiagnosisID9-0">Essential EDT IntoleranceGlucose Hypertension Benign</content>, <content IntoleranceGlucose ID="encounterDiagnosisID9-1">Glucose IntoleranceEssential Intolerance</content></td> Hypertens ion BenignEssential Hypertension BenignEssential Hypertension BenignEssential Hypertension BenignEssential Hypertension BenignEssential Hypertension BenignEssential Hypertension Benign Glucose Intolerance Glucose Intolerance Glucose Intolerance Glucose Intolerance Glucose Intolerance Glucose Intolerance Glucose Intolerance Essential 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 Benign Outpatient<td Attender: [facility] 03/15/2019 [place] ID="[id number]">*No [facility] 07:20:00 PM ([place] Show*</td><td>DAVIS CABRAL [facility] Center EDT - Neighborhood PREFLIGHT INSPECTOR</td><td>[facility] 03/15/2019 Health Center</td><td>03/15/2019</td><td></td> 11:59:0 0 PM Center) EDT Outpatient<td Attender: [facility] 12/13/2018 G [place] ID="[id number]">OFFICE [facility] 10:45: 00 AM l ([place] VISIT</td><td>DAVIS CABRAL PREFLIGHT INSPECTOR Center EDT - u Neighborhood PREFLIGHT INSPECTOR</td><td>[facility] 12/13/2018 c Health Center</td><td>12/13/2018</td><td><[place]as 11:19: 16 AM o Center) nt ID="[id number]">Glucose EDT s Intolerance</content>, <content e ID="[id number]">Benign I Hypertension</content></td> n t o l e r a n c e G l u c o s e I n t o l e r a n c e G l u c o s e I n t o l e r a n c e G l u c o s e I n t o l e r a n c e G l u c o s e I n t o l e r a n c e G l u c o s e I n t o l e r a n c e G l u c o s e I n t o l e r a n c e G l u c o s e I n t o l e r a n c e B e n i g n H y p e r t e n s i o n B e n i g n H y p e r t e n s i o n B e n i g n H y p e r t e n s i o n B e n i g n H y p e r t e n s i o n B e n i g n H y p e r t e n s i o n B e n i g n H y p e r t e n s i o n B e n i g n H y p e r t e n s i o n B e n i g n H y p e r t e n s i o n Glucose Intolerance Glucose Intolerance Glucose Intolerance Glucose Intolerance Glucose Intolerance Glucose Intolerance Glucose Intolerance Glucose Intolerance Benign Hypertension Benign Hypertension Benign Hypertension Benign Hypertension Benign Hypertension Benign Hypertension Benign Hypertension Benign Hypertension Outpatient<td Attender: [facility] 11/22/2018 Glucose [place] ID="[id number]">OFFICE [facility] 10:00:00 AM IntoleranceGlucose ([place] VISIT</td><td>DAVIS CABRAL [facility] Center EDT - Intolera nceGlucose Neighborhood [facility]</td><td>[facility] 11/22/2018 Intoswetha barbaCarl [facility] Center</td><td>11/22/2018</td><td><content 11:0 1:50 AM IntoleranceGlucose Center) ID="[id number]">Glucose EDT IntoleranceGlucose Intolerance</content>, <content Into leranceGlucose ID="[id number]">Hypertension IntoleranceGlucose (systemic)</content></td> Intoleranc eGlucose IntoleranceHypertension (systemic)Hypertension (systemic)Hypertension (systemic)Hypertension (systemic)Hypertension (systemic)Hypertension (systemic)Hypertension (systemic)Hypertension (systemic)Hypertension (systemic) Glucose Intolerance Glucose Intolerance Glucose Intolerance Glucose Intolerance Glucose Intolerance Glucose Intolerance Glucose Intolerance Glucose Intolerance Glucose Intolerance Hypertension (systemic) Hypertension (systemic) Hypertension (systemic) Hypertension (systemic) Hypertension (systemic) Hypertension (systemic) Hypertension (systemic) Hypertension (systemic) Hypertension (systemic) Outpatient<td Attender: [facility] 09/30/2018 Preventive Med [facility] Y ID="[id number]">OFFICE [facility] 09:30:00 AM Standardized ([place] VISIT</td><td>DAVIS CABRAL PREFLIGHT INSPECTOR Center EDT - Depressi on Neighborhood PREFLIGHT INSPECTOR</td><td>[facility] 09/30/2018 Screen ing: Health Center</td><td>09/30/2018</td><td><content 11:2 9:14 AM Negative For Center) ID="[id number]">Common EDT SymptomsCommon Cold</content>, <content ColdPrevent mary ID="[id number]">Preventive Med Med Standardized Depression Screening: Standardized Negative For Symptoms</content></td> Depression Screening: Negative For SymptomsCommon ColdPreventive Med Standardized Depression Screening: Negative For SymptomsCommon ColdPreventive Med Standardized Depression Screening: Negative For SymptomsCommon ColdPreventive Med Standardized Depression Screening: Negative For SymptomsCommon ColdPreventive Med Standardized Depression Screening: Negative For SymptomsCommon ColdPreventive Med Standardized Depression Screening: Negative For SymptomsCommon ColdPreventive Med Standardized Depression Screening: Negative For SymptomsCommon ColdPreventive Med Standardized Depression Screening: Negative For SymptomsCommon ColdPreventive Med Standardized Depression Screening: Negative For SymptomsCommon Cold Preventive Med Standardized Depression S creening: Negative For Symptoms Common Cold Preventive Med Standardized Depression S creening: Negative For Symptoms Common Cold Preventive Med Standardized Depression S creening: Negative For Symptoms Common Cold Preventive Med Standardized Depression S creening: Negative For Symptoms Common Cold Preventive Med Standardized Depression S creening: Negative For Symptoms Common Cold Preventive Med Standardized Depression S creening: Negative For Symptoms Common Cold Preventive Med Standardized Depression S creening: Negative For Symptoms Common Cold Preventive Med Standardized Depression S creening: Negative For Symptoms Common Cold Preventive Med Standardized Depression S creening: Negative For Symptoms Common Cold Preventive Med Standardized Depression S creening: Negative For Symptoms Common Cold Outpatient<td Attender: [facility] 09/07/2018 [place] ID="[id number]">*No [facility] 12:19:00 PM ([place] Show*</td><td>[place] ASA BRAY AR Center EDT - Neighborhood MD</td><td>[facility] 09/07/2018 Health Center</td><td>09/07/2018</td><td></td> 11:59:0 0 PM Center) EDT Outpatient<td Attender: [facility] 08/25/2018 E [place] ID="[id number]">OFFICE [facility] 10:00: 00 AM s ([place] VISIT</td><td>DAVIS CABRAL PREFLIGHT INSPECTOR Center EDT - s [facility] PREFLIGHT INSPECTOR</td><td>[facility] 08/25/2018 e Health Center</td><td>08/25/2018</td><td><[place] 10:55: 46 AM n Center) nt EDT t ID="[id number]">Essential i Hypertension</content></td> a l H y p e r t e n s i o n E s s e n t i a l H y p e r t e n s i o n E s s e n t i a l H y p e r t e n s i o n E s s e n t i a l H y p e r t e n s i o n E s s e n t i a l H y p e r t e n s i o n E s s e n t i a l H y p e r t e n s i o n E s s e n t i a l H y p e r t e n s i o n E s s e n t i a l H y p e r t e n s i o n E s s e n t i a l H y p e r t e n s i o n E s s e n t i a l H y p e r t e n s i o n E s s e n t i a l H y p e r t e n s i o n Essential Hypertension Essential Hypertension Essential Hypertension Essential Hypertension Essential Hypertension Essential Hypertension Essential Hypertension Essential Hypertension Essential Hypertension Essential Hypertension Essential Hypertension Outpatient<td Attender: [facility] 08/09/2018 [place] ID="[id number]">*No [facility] 05:05:00 PM ([place] Show*</td><td>DAVIS CABRAL PREFLIGHT INSPECTOR Center EST - Neighborhood PREFLIGHT INSPECTOR</td><td>[facility] 08/09/2018 Health Center</td><td>08/09/2018</td><td></td> 11:59:0 0 PM Center) EST Outpatient<td Attender: [facility] 07/09/2018 [place] ID="[id number]">OFFICE [facility] 10:45: 00 AM s ([place] VISIT</td><td>DAVIS CABRAL PREFLIGHT INSPECTOR Center EST - s Neighborhood PREFLIGHT INSPECTOR</td><td>[facility] 07/09/2018 e Health Center</td><td>07/09/2018</td><td><[place] 10:55: 29 AM n Center) nt EST t ID="[id number]">Essential i Hypertension</content></td> a l H y p e r t e n s i o n E s s e n t i a l H y p e r t e n s i o n E s s e n t i a l H y p e r t e n s i o n E s s e n t i a l H y p e r t e n s i o n E s s e n t i a l H y p e r t e n s i o n E s s e n t i a l H y p e r t e n s i o n E s s e n t i a l H y p e r t e n s i o n E s s e n t i a l H y p e r t e n s i o n E s s e n t i a l H y p e r t e n s i o n E s s e n t i a l H y p e r t e n s i o n E s s e n t i a l H y p e r t e n s i o n E s s e n t i a l H y p e r t e n s i o n Essential Hypertension Essential Hypertension Essential Hypertension Essential Hypertension Essential Hypertension Essential Hypertension Essential Hypertension Essential Hypertension Essential Hypertension Essential Hypertension Essential Hypertension Essential Hypertension Outpatient<td Attender: [facility] 06/23/2018 Routine [place] ID="[id number]">OFFICE [facility] 10:00: 00 AM History and ([place] VISIT</td><td>DAVIS CABRAL CABRAL PREFLIGHT INSPECTOR Center EST - Physical Neighborhood PREFLIGHT INSPECTOR</td><td>[facility] 06/23/2018 Adult (18 - Health Center</td><td>06/23/2018</td><td><content 11:0 0:49 AM 65 Center) ID="[id number]">Routine EST Yrs)Routine History and Physical Adult (18 - 64 History and Yrs)</content></td> Physical Adult (18 - 64 Yrs)Routine History and Physical Adult (18 - 64 Yrs)Routine History and Physical Adult (18 - 64 Yrs)Routine History and Physical Adult (18 - 64 Yrs)Routine History and Physical Adult (18 - 64 Yrs)Routine History and Physical Adult (18 - 64 Yrs)Routine History and Physical Adult (18 - 64 Yrs)Routine History and Physical Adult (18 - 64 Yrs)Routine History and Physical Adult (18 - 64 Yrs)Routine History and Physical Adult (18 - 64 Yrs)Routine History and Physical Adult (18 - 64 Yrs)Routine History and Physical Adult (18 - 64 Yrs) Routine History and Physical Adult (18 - 64 Yrs) Routine History and Physical Adult (18 - 64 Yrs) Routine History and Physical Adult (18 - 64 Yrs) Routine History and Physical Adult (18 - 64 Yrs) Routine History and Physical Adult (18 - 64 Yrs) Routine History and Physical Adult (18 - 64 Yrs) Routine History and Physical Adult (18 - 64 Yrs) Routine History and Physical Adult (18 - 64 Yrs) Routine History and Physical Adult (18 - 64 Yrs) Routine History and Physical Adult (18 - 64 Yrs) Routine History and Physical Adult (18 - 64 Yrs) Routine History and Physical Adult (18 - 64 Yrs) Routine History and Physical Adult (18 - 64 Yrs) Outpatient<td Attender: [facility] 05/28/2018 [place] ID="[id number]">*No [facility] 05:15:00 PM (Blade Hernandez Show*</td><td>DAVIS CABRAL PREFLIGHT INSPECTOR Center EST - Neighborhood PREFLIGHT INSPECTOR</td><td>[facility] 05/28/2018 Health Center</td><td>05/28/2018</td><td></td> 11:59:0 0 PM Center) EST Outpatient<td Attender: [facility] 09/04/2017 G [place] ID="[id number]">GB [facility] 04:15:00 P M e ([place] WALK-IN</td><td>DAVIS CABRAL PREFLIGHT INSPECTOR Center EDT - r Neighborhood PREFLIGHT INSPECTOR</td><td>[facility] 09/04/2017 d Health Center</td><td>09/04/2017</td><td><[place] 04:47: 46 PM G Center) nt EDT e ID="[id number]">Essential r Hypertension</content>, <content d ID="[id number]">Gerd</cont G ent></td> e r d G e r d G e r d G e r d G e r d G e r d G e r d G e r d G e r d G e r d G e r d E s s e n t i a l H y p e r t e n s i o n E s s e n t i a l H y p e r t e n s i o n E s s e n t i a l H y p e r t e n s i o n E s s e n t i a l H y p e r t e n s i o n E s s e n t i a l H y p e r t e n s i o n E s s e n t i a l H y p e r t e n s i o n E s s e n t i a l H y p e r t e n s i o n E s s e n t i a l H y p e r t e n s i o n E s s e n t i a l H y p e r t e n s i o n E s s e n t i a l H y p e r t e n s i o n E s s e n t i a l H y p e r t e n s i o n E s s e n t i a l H y p e r t e n s i o n E s s e n t i a l H y p e r t e n s i o n Gerd Gerd Gerd Gerd Gerd Gerd Gerd Gerd Gerd Gerd Gerd Gerd Gerd Essential Hypertension Essential Hypertension Essential Hypertension Essential Hypertension Essential Hypertension Essential Hypertension Essential Hypertension Essential Hypertension Essential Hypertension Essential Hypertension Essential Hypertension Essential Hypertension Essential Hypertension Outpatient<td Attender: [facility] 07/22/2017 [place] ID="[id number]">*No [facility] 05:56:00 PM (Blade Hernandez Show*</td><td>DAVIS CABRAL PREFLIGHT INSPECTOR Center EST - Neighborhood PREFLIGHT INSPECTOR</td><td>[facility] 07/22/2017 Health Center</td><td>07/22/2017</td><td></td> 11:59:0 0 PM Center) EST Outpatient<td Attender: [facility] 04/21/2017 E [place] ID="[id number]">OFFICE [facility] 10:45: 00 AM s (Blade Hernandez VISIT</td><td>DAVIS CABRAL PREFLIGHT INSPECTOR Center EST - s Neighborhood PREFLIGHT INSPECTOR</td><td>[facility] 04/21/2017 e Health Center</td><td>04/21/2017</td><td><[place]as 11:23: 46 AM n Center) nt EST t ID="[id number]">Essential i Hypertension</content></td> a l H y p e r t e n s i o n E s s e n t i a l H y p e r t e n s i o n E s s e n t i a l H y p e r t e n s i o n E s s e n t i a l H y p e r t e n s i o n E s s e n t i a l H y p e r t e n s i o n E s s e n t i a l H y p e r t e n s i o n E s s e n t i a l H y p e r t e n s i o n E s s e n t i a l H y p e r t e n s i o n E s s e n t i a l H y p e r t e n s i o n E s s e n t i a l H y p e r t e n s i o n E s s e n t i a l H y p e r t e n s i o n E s s e n t i a l H y p e r t e n s i o n E s s e n t i a l H y p e r t e n s i o n Essential Hypertension Essential Hypertension Essential Hypertension Essential Hypertension Essential Hypertension Essential Hypertension Essential Hypertension Essential Hypertension Essential Hypertension Essential Hypertension Essential Hypertension Essential Hypertension Essential Hypertension Outpatient<td Attender: [facility] 04/21/2017 [place] ID="[id number]">CARE [facility] 10:33:00 AM (Blade Hernandez MANAGEMENT PLAN</td><td>[place] [facility] RN Center EST - Neighborhood RN</td><td>[facility] 04/21/2017 Health Center</td><td>04/21/2017</td><td></td> 11:59:0 0 PM Center) EST Outpatient<td Attender: [facility] 03/31/2017 Adrianna GALEAS ID="[id number]">OFFICE [facility] 10:00: 00 AM l ([place] VISIT</td><td>DAVIS CABRAL PREFLIGHT INSPECTOR Center EDT - u Neighborhood PREFLIGHT INSPECTOR</td><td>[facility] 03/31/2017 c Health Center</td><td>03/31/2017</td><td><[place]as 11:23: 36 AM o Center) nt EDT s ID="[id number]">Essential e Hypertension</content>, <content I ID="[id number]">Glucose n Intolerance</content></td> t o l e r a n c e G l u c o s e I n t o l e r a n c e G l u c o s e I n t o l e r a n c e G l u c o s e I n t o l e r a n c e G l u c o s e I n t o l e r a n c e G l u c o s e I n t o l e r a n c e G l u c o s e I n t o l e r a n c e G l u c o s e I n t o l e r a n c e G l u c o s e I n t o l e r a n c e G l u c o s e I n t o l e r a n c e G l u c o s e I n t o l e r a n c e G l u c o s e I n t o l e r a n c e G l u c o s e I n t o l e r a n c e E s s e n t i a l H y p e r t e n s i o n E s s e n t i a l H y p e r t e n s i o n E s s e n t i a l H y p e r t e n s i o n E s s e n t i a l H y p e r t e n s i o n E s s e n t i a l H y p e r t e n s i o n E s s e n t i a l H y p e r t e n s i o n E s s e n t i a l H y p e r t e n s i o n E s s e n t i a l H y p e r t e n s i o n E s s e n t i a l H y p e r t e n s i o n E s s e n t i a l H y p e r t e n s i o n E s s e n t i a l H y p e r t e n s i o n E s s e n t i a l H y p e r t e n s i o n E s s e n t i a l H y p e r t e n s i o n Glucose Intolerance Glucose Intolerance Glucose Intolerance Glucose Intolerance Glucose Intolerance Glucose Intolerance Glucose Intolerance Glucose Intolerance Glucose Intolerance Glucose Intolerance Glucose Intolerance Glucose Intolerance Glucose Intolerance Essential Hypertension Essential Hypertension Essential Hypertension Essential Hypertension Essential Hypertension Essential Hypertension Essential Hypertension Essential Hypertension Essential Hypertension Essential Hypertension Essential Hypertension Essential Hypertension Essential Hypertension Outpatient<td Attender: [facility] 03/16/2017 [place] ID="[id number]">[facility] Health 10:15: 00 AM (Blade Hernandez WALKIN</td><td>RALPH PAZ DDS Center EDT - Neighborhood DDS</td><td>[facility] 03/16/2017 Health Center</td><td>03/16/2017</td><td></td> 11:59:0 0 PM Center) EDT Outpatient<td Attender: [facility] 12/29/2016 [facility] ID="[id number]">OFFICE [facility] 10:00: 00 AM l ([place] VISIT</td><td>DAVIS CABRAL CABRAL PREFLIGHT INSPECTOR Center EDT - u Neighborhood PREFLIGHT INSPECTOR</td><td>[facility] 12/29/2016 Health Center</td><td>12/29/2016</td><td><[place] 11:58 :40 AM o Center) t ID="[id number]">Essential EDT s Hypertension</content>, <content e ID="[id number]">Glucose I Intolerance</content></td> n t o l e r a n c e G l u c o s e I n t o l e r a n c e G l u c o s e I n t o l e r a n c e G l u c o s e I n t o l e r a n c e G l u c o s e I n t o l e r a n c e G l u c o s e I n t o l e r a n c e G l u c o s e I n t o l e r a n c e G l u c o s e I n t o l e r a n c e G l u c o s e I n t o l e r a n c e G l u c o s e I n t o l e r a n c e G l u c o s e I n t o l e r a n c e G l u c o s e I n t o l e r a n c e G l u c o s e I n t o l e r a n c e E s s e n t i a l H y p e r t e n s i o n E s s e n t i a l H y p e r t e n s i o n E s s e n t i a l H y p e r t e n s i o n E s s e n t i a l H y p e r t e n s i o n E s s e n t i a l H y p e r t e n s i o n E s s e n t i a l H y p e r t e n s i o n E s s e n t i a l H y p e r t e n s i o n E s s e n t i a l H y p e r t e n s i o n E s s e n t i a l H y p e r t e n s i o n E s s e n t i a l H y p e r t e n s i o n E s s e n t i a l H y p e r t e n s i o n E s s e n t i a l H y p e r t e n s i o n E s s e n t i a l H y p e r t e n s i o n Glucose Intolerance Glucose Intolerance Glucose Intolerance Glucose Intolerance Glucose Intolerance Glucose Intolerance Glucose Intolerance Glucose Intolerance Glucose Intolerance Glucose Intolerance Glucose Intolerance Glucose Intolerance Glucose Intolerance Essential Hypertension Essential Hypertension Essential Hypertension Essential Hypertension Essential Hypertension Essential Hypertension Essential Hypertension Essential Hypertension Essential Hypertension Essential Hypertension Essential Hypertension Essential Hypertension Essential Hypertension Outpatient<td Attender: [facility] 12/15/2016 [facility] ID="[id number]">OFFICE [facility] 10:30:00 AM IntoleranceGlucose ([place] VISIT</td><td>DAVIS CABRAL [facility] Center EDT - Intolera nceGlucose Neighborhood PREFLIGHT INSPECTOR</td><td>[facility]</td><td>12/15/2016</td><td><content 11:2 0:22 AM IntoleranceGlucose Center) ID="[id number]">Essential EDT IntoleranceGlucose Hypertension</content>, <content Int oleranceGlucose ID="[id number]">Glucose IntoleranceGlucose Intolerance</content></td> Intoleran ceGlucose IntoleranceGlucose IntoleranceGlucose IntoleranceGlucose IntoleranceGlucose IntoleranceEssential HypertensionEssential HypertensionEssential HypertensionEssential HypertensionEssential HypertensionEssential HypertensionEssential HypertensionEssential HypertensionEssential HypertensionEssential HypertensionEssential HypertensionEssential HypertensionEssential Hypertension Glucose Intolerance Glucose Intolerance Glucose Intolerance Glucose Intolerance Glucose Intolerance Glucose Intolerance Glucose Intolerance Glucose Intolerance Glucose Intolerance Glucose Intolerance Glucose Intolerance Glucose Intolerance Glucose Intolerance Essential Hypertension Essential Hypertension Essential Hypertension Essential Hypertension Essential Hypertension Essential Hypertension Essential Hypertension Essential Hypertension Essential Hypertension Essential Hypertension Essential Hypertension Essential Hypertension Essential Hypertension Outpatient<td Attender: [facility] 10/23/2016 [place] ID="[id number]">*No [facility] 06:16:00 PM ([place] Show*</td><td>CARLOS KELLEY MD [place] RUBY Dias MD</td><td>[facility] 10/23/2016 [facility]</td><td>10/23/2016</td><td></td> 11:59:0 0 PM Center) EDT Outpatient<td Attender: [facility] 10/20/2016 [place] ID="[id number]">[facility] 11:30: 00 AM r ([facility] VISIT</td><td>[place] ASA BRAY MD [place] RUBY House MD</td><td>[facility] 10/20/2016 [facility]</td><td>10/20/2016</td><td><vikas 12:12: 50 PM b Center) nt EDT y ID="[id number]">Cataract o Senile Nuclear</content>, <content p ID="[id number]">Presbyopia i </content></td> a C a t a r a c t S e n i l e N u c l e a r P r e s b y o p i a C a t a r a c t S e n i l e N u c l e a r P r e s b y o p i a C a t a r a c t S e n i l e N u c l e a r P r e s b y o p i a C a t a r a c t S e n i l e N u c l e a r P r e s b y o p i a C a t a r a c t S e n i l e N u c l e a r P r e s b y o p i a C a t a r a c t S e n i l e N u c l e a r P r e s b y o p i a C a t a r a c t S e n i l e N u c l e a r P r e s b y o p i a C a t a r a c t S e n i l e N u c l e a r P r e s b y o p i a C a t a r a c t S e n i l e N u c l e a r P r e s b y o p i a C a t a r a c t S e n i l e N u c l e a r P r e s b y o p i a C a t a r a c t S e n i l e N u c l e a r P r e s b y o p i a C a t a r a c t S e n i l e N u c l e a r P r e s b y o p i a C a t a r a c t S e n i l e N u c l e a r Presbyopia Cataract Senile Nuclear Presbyopia Cataract Senile Nuclear Presbyopia Cataract Senile Nuclear Presbyopia Cataract Senile Nuclear Presbyopia Cataract Senile Nuclear Presbyopia Cataract Senile Nuclear Presbyopia Cataract Senile Nuclear Presbyopia Cataract Senile Nuclear Presbyopia Cataract Senile Nuclear Presbyopia Cataract Senile Nuclear Presbyopia Cataract Senile Nuclear Presbyopia Cataract Senile Nuclear Presbyopia Cataract Senile Nuclear Outpatient<td Attender: [facility] 09/15/2016 Glucose [place] ID="[id number]">OFFICE [facility] 10:15:00 AM IntoleranceGlucose ([place] VISIT</td><td>DAVIS CABRAL [facility] Center EDT - Intolera nceGlucose [facility]</td><td>[facility] 09/15/2016 Intole ranceGlucose [facility] Center</td><td>09/15/2016</td><td><content 10:5 8:44 AM IntoleranceGlucose Center) ID="[id number]">Hypertension EDT IntoleranceGlucose (systemic)</content>, <content Intol eranceGlucose ID="[id number]">Essential IntoleranceGlucose Hypertension Benign</content>, <content IntoleranceGlucose ID="[id number]">Glucose IntoleranceGlucose Intolerance</content>, <content Into leranceGlucose ID="[id number]">Essential IntoleranceGlucose Hypertension</content></td> Intolera nceGlucose IntoleranceEssential HypertensionEssential Hypertension BenignHypertension (systemic)Essential HypertensionEssential Hypertension BenignHypertension (systemic)Essential HypertensionEssential Hypertension BenignHypertension (systemic)Essential HypertensionEssential Hypertension BenignHypertension (systemic)Essential HypertensionEssential Hypertension BenignHypertension (systemic)Essential HypertensionEssential Hypertension BenignHypertension (systemic)Essential HypertensionEssential Hypertension BenignHypertension (systemic)Essential HypertensionEssential Hypertension BenignHypertension (systemic)Essential HypertensionEssential Hypertension BenignHypertension (systemic)Essential HypertensionEssential Hypertension BenignHypertension (systemic)Essential HypertensionEssential Hypertension BenignHypertension (systemic)Essential HypertensionEssential Hypertension BenignHypertension (systemic)Essential HypertensionEssential Hypertension BenignHypertension (systemic) Glucose Intolerance Glucose Intolerance Glucose Intolerance Glucose Intolerance Glucose Intolerance Glucose Intolerance Glucose Intolerance Glucose Intolerance Glucose Intolerance Glucose Intolerance Glucose Intolerance Glucose Intolerance Glucose Intolerance Essential Hypertension Essential Hypertension Benign Hypertension (systemic) Essential Hypertension Essential Hypertension Benign Hypertension (systemic) Essential Hypertension Essential Hypertension Benign Hypertension (systemic) Essential Hypertension Essential Hypertension Benign Hypertension (systemic) Essential Hypertension Essential Hypertension Benign Hypertension (systemic) Essential Hypertension Essential Hypertension Benign Hypertension (systemic) Essential Hypertension Essential Hypertension Benign Hypertension (systemic) Essential Hypertension Essential Hypertension Benign Hypertension (systemic) Essential Hypertension Essential Hypertension Benign Hypertension (systemic) Essential Hypertension Essential Hypertension Benign Hypertension (systemic) Essential Hypertension Essential Hypertension Benign Hypertension (systemic) Essential Hypertension Essential Hypertension Benign Hypertension (systemic) Essential Hypertension Essential Hypertension Benign Hypertension (systemic) Outpatient<td Attender: [facility] 09/01/2016 Abnormal Heart NOAH Y ID="[id number]">OFFICE [facility] 11:45:00 AM [facility] ([place] VISIT</td><td>DAVIS CABRAL [facility] Center EDT - History and Neighborhood PREFLIGHT INSPECTOR</td><td>[facility] 09/01/2016 [facility]</td><td>09/01/2016</td><td><content 03:0 5:14 PM (18 - 64 Center) ID="[id number]">Preventive EDT Yrs)Preventive Med Standardized Depression Screening: Med Standardized Negative For Symptoms</content>, <content Depression ID="[id number]">Routine Screening: History and Physical Adult (18 - 64 Negative For Yrs)</content>, <content SymptomsAbn ormal ID="[id number]">Abnormal Heart Heart Sounds</content></td> SoundsRo utine History and Physical Adult (18 - 64 Yrs)Preventive Med Standardized Depression Screening: Negative For SymptomsAbnormal Heart SoundsRoutine History and Physical Adult (18 - 64 Yrs)Preventive Med Standardized Depression Screening: Negative For SymptomsAbnormal Heart SoundsRoutine History and Physical Adult (18 - 64 Yrs)Preventive Med Standardized Depression Screening: Negative For SymptomsAbnormal Heart SoundsRoutine History and Physical Adult (18 - 64 Yrs)Preventive Med Standardized Depression Screening: Negative For SymptomsAbnormal Heart SoundsRoutine History and Physical Adult (18 - 64 Yrs)Preventive Med Standardized Depression Screening: Negative For SymptomsAbnormal Heart SoundsRoutine History and Physical Adult (18 - 64 Yrs)Preventive Med Standardized Depression Screening: Negative For SymptomsAbnormal Heart SoundsRoutine History and Physical Adult (18 - 64 Yrs)Preventive Med Standardized Depression Screening: Negative For SymptomsAbnormal Heart SoundsRoutine History and Physical Adult (18 - 64 Yrs)Preventive Med Standardized Depression Screening: Negative For SymptomsAbnormal Heart SoundsRoutine History and Physical Adult (18 - 64 Yrs)Preventive Med Standardized Depression Screening: Negative For SymptomsAbnormal Heart SoundsRoutine History and Physical Adult (18 - 64 Yrs)Preventive Med Standardized Depression Screening: Negative For SymptomsAbnormal Heart SoundsRoutine History and Physical Adult (18 - 64 Yrs)Preventive Med Standardized Depression Screening: Negative For SymptomsAbnormal Heart SoundsRoutine History and Physical Adult (18 - 64 Yrs)Preventive Med Standardized Depression Screening: Negative For Symptoms Abnormal Heart Sounds Routine History and Physical Adult (18 - 64 Yrs) Preventive Med Standardized Depression S creening: Negative For Symptoms Abnormal Heart Sounds Routine History and Physical Adult (18 - 64 Yrs) Preventive Med Standardized Depression S creening: Negative For Symptoms Abnormal Heart Sounds Routine History and Physical Adult (18 - 64 Yrs) Preventive Med Standardized Depression S creening: Negative For Symptoms Abnormal Heart Sounds Routine History and Physical Adult (18 - 64 Yrs) Preventive Med Standardized Depression S creening: Negative For Symptoms Abnormal Heart Sounds Routine History and Physical Adult (18 - 64 Yrs) Preventive Med Standardized Depression S creening: Negative For Symptoms Abnormal Heart Sounds Routine History and Physical Adult (18 - 64 Yrs) Preventive Med Standardized Depression S creening: Negative For Symptoms Abnormal Heart Sounds Routine History and Physical Adult (18 - 64 Yrs) Preventive Med Standardized Depression S creening: Negative For Symptoms Abnormal Heart Sounds Routine History and Physical Adult (18 - 64 Yrs) Preventive Med Standardized Depression S creening: Negative For Symptoms Abnormal Heart Sounds Routine History and Physical Adult (18 - 64 Yrs) Preventive Med Standardized Depression S creening: Negative For Symptoms Abnormal Heart Sounds Routine History and Physical Adult (18 - 64 Yrs) Preventive Med Standardized Depression S creening: Negative For Symptoms Abnormal Heart Sounds Routine History and Physical Adult (18 - 64 Yrs) Preventive Med Standardized Depression S creening: Negative For Symptoms Abnormal Heart Sounds Routine History and Physical Adult (18 - 64 Yrs) Preventive Med Standardized Depression S creening: Negative For Symptoms Abnormal Heart Sounds Routine History and Physical Adult (18 - 64 Yrs) Preventive Med Standardized Depression S creening: Negative For Symptoms Outpatient<td Attender: [facility] 06/26/2016 [place] ID="[id number]">*[facility] 04:12:00 PM ([place] Show*</td><td>DAVIS CABRAL [facility] EST - Neighborhood PREFLIGHT INSPECTOR</td><td>[facility] 06/26/2016 Health Center</td><td>06/26/2016</td><td></td> 11:59:0 0 PM [place]) EST Outpatient<td Attender: [facility] 06/05/2016 [place] ID="[id number]">*[facility] 06:00:00 PM ([place] Show*</td><td>DAVIS CABRAL [facility] EST - Neighborhood PREFLIGHT INSPECTOR</td><td>[facility] 06/05/2016 Health Center</td><td>06/05/2016</td><td></td> 11:59:0 0 PM Center) EST Outpatient<td Attender: [facility] 03/06/2016 Adrianna VERNONGUDELIA ID="[id number]">[facility] 10:00: 00 AM e (Blade Hernandez S</td><td>DAVIS CABRAL CABRAL PREFLIGHT INSPECTOR Center EDT - r N [facility] PREFLIGHT INSPECTOR</td><td>[facility] 03/06/2016 d Health Center</td><td>03/06/2016</td><td><[place] 11:00: 23 AM U Center) nt ID="[id number]">Upper EDT p Respiratory Infection</content>, p <content e ID="[id number]">Gerd</cont r ent>, <content R ID="[id number]">Essential e Hypertension</content></td> s p i r a t o r y I n f e c t i o n G e r d U p p e r R e s p i r a t o r y I n f e c t i o n G e r d U p p e r R e s p i r a t o r y I n f e c t i o n G e r d U p p e r R e s p i r a t o r y I n f e c t i o n G e r d U p p e r R e s p i r a t o r y I n f e c t i o n G e r d U p p e r R e s p i r a t o r y I n f e c t i o n G e r d U p p e r R e s p i r a t o r y I n f e c t i o n G e r d U p p e r R e s p i r a t o r y I n f e c t i o n G e r d U p p e r R e s p i r a t o r y I n f e c t i o n G e r d U p p e r R e s p i r a t o r y I n f e c t i o n G e r d U p p e r R e s p i r a t o r y I n f e c t i o n G e r d U p p e r R e s p i r a t o r y I n f e c t i o n G e r d U p p e r R e s p i r a t o r y I n f e c t i o n E s s e n t i a l H y p e r t e n s i o n E s s e n t i a l H y p e r t e n s i o n E s s e n t i a l H y p e r t e n s i o n E s s e n t i a l H y p e r t e n s i o n E s s e n t i a l H y p e r t e n s i o n E s s e n t i a l H y p e r t e n s i o n E s s e n t i a l H y p e r t e n s i o n E s s e n t i a l H y p e r t e n s i o n E s s e n t i a l H y p e r t e n s i o n E s s e n t i a l H y p e r t e n s i o n E s s e n t i a l H y p e r t e n s i o n E s s e n t i a l H y p e r t e n s i o n E s s e n t i a l H y p e r t e n s i o n Gerd Upper Respiratory Infection Gerd Upper Respiratory Infection Gerd Upper Respiratory Infection Gerd Upper Respiratory Infection Gerd Upper Respiratory Infection Gerd Upper Respiratory Infection Gerd Upper Respiratory Infection Gerd Upper Respiratory Infection Gerd Upper Respiratory Infection Gerd Upper Respiratory Infection Gerd Upper Respiratory Infection Gerd Upper Respiratory Infection Gerd Upper Respiratory Infection Essential Hypertension Essential Hypertension Essential Hypertension Essential Hypertension Essential Hypertension Essential Hypertension Essential Hypertension Essential Hypertension Essential Hypertension Essential Hypertension Essential Hypertension Essential Hypertension Essential Hypertension Outpatient<td Attender: [facility] 12/03/2015 [place] ID="[id number]">*No [facility] 04:18:00 PM ([place] Show*</td><td>OSMIN LEE MD [place] RUBY Dias MD</td><td>[facility] 12/03/2015 Health Center</td><td>12/03/2015</td><td></td> 11:59:0 0 PM Center) EDT Outpatient<td Attender: 10/04/2015 [place] ID="[id number]">[Patie CHRISTINE 06:18: 00 PM ([place] nt Encounter]</td><td>CHRISTINE WILEY MD EDT - [facility] MD</td><td> 10/04/2015 Health </td><td>10/04/2015</td><td></td> 11:59:00 PM Center) EDT Outpatient<td Attender: [facility] 08/28/2015 [facility] ID="[id number]">[facility] AM e ([facility]</td><td>[facility] EDT - [facility] TABLE TOP TILE SETTER</td><td>[facility] [facility] TABLE TOP TILE SETTER 08/28/2015 [facility]</td><td>08/28/2015</td><td><vikas 11:29: 56 AM t Center) nt EDT u ID="[id number]">Hypertensi r on (systemic)</content>, <content i ID="[id number]">Hematuria< a /content></td> H e m a t u r i a H e m a t u r i a H e m a t u r i a H e m a t u r i a H e m a t u r i a H e m a t u r i a H e m a t u r i a H e m a t u r i a H e m a t u r i a H e m a t u r i a H e m a t u r i a H e m a t u r i a H y p e r t e n s i o n ( s y s t e m i c ) H y p e r t e n s i o n ( s y s t e m i c ) H y p e r t e n s i o n ( s y s t e m i c ) H y p e r t e n s i o n ( s y s t e m i c ) H y p e r t e n s i o n ( s y s t e m i c ) H y p e r t e n s i o n ( s y s t e m i c ) H y p e r t e n s i o n ( s y s t e m i c ) H y p e r t e n s i o n ( s y s t e m i c ) H y p e r t e n s i o n ( s y s t e m i c ) H y p e r t e n s i o n ( s y s t e m i c ) H y p e r t e n s i o n ( s y s t e m i c ) H y p e r t e n s i o n ( s y s t e m i c ) H y p e r t e n s i o n ( s y s t e m i c ) Hematuria Hematuria Hematuria Hematuria Hematuria Hematuria Hematuria Hematuria Hematuria Hematuria Hematuria Hematuria Hematuria Hypertension (systemic) Hypertension (systemic) Hypertension (systemic) Hypertension (systemic) Hypertension (systemic) Hypertension (systemic) Hypertension (systemic) Hypertension (systemic) Hypertension (systemic) Hypertension (systemic) Hypertension (systemic) Hypertension (systemic) Hypertension (systemic) Outpatient<td Attender: [facility] 08/06/2015 [facility] ID="[id number]">Follow [facility] 10:30:00 AM HypertensionExertional ([facility]</td><td>OSMIN LEE MD Center EST - HypertensionE raul Dias MD</td><td>[facility]06[facility]td><td>08/06/2015</td><td><content 12:3 9:24 PM HypertensionExertional Center) ID="[id number]">Exertional EST HypertensionExertional Hypertension</content></td> Hyperten sionExertional HypertensionExertional HypertensionExertional HypertensionExertional HypertensionExertional HypertensionExertional HypertensionExertional Hypertension Exertional Hypertension Exertional Hypertension Exertional Hypertension Exertional Hypertension Exertional Hypertension Exertional Hypertension Exertional Hypertension Exertional Hypertension Exertional Hypertension Exertional Hypertension Exertional Hypertension Exertional Hypertension Exertional Hypertension Outpatient<td ID="[id number]">INITIAL Attender : [facility] 07/17/2015 PresbyopiaCataract Senile GUDELIA VISIT</td><td>ZACH BRAY MD</td><td>[facility] ZACH [facility] 10:30:00 AM NuclearPresbyopiaCataract ([facility]</td><td>07/17/2015</td><td><content ASA DANIELLE [facility] EST - Senile Neighborhood ID="[id number]">[place]atar[place] Senile 07/17/2015 NuclearPresbyopiaCataract Health Nuclear</content>, <content 11:07:15 AM Senile Center) ID="[id number]">Presbyopia</content></td> EST NuclearPresbyopiaCataract Senile NuclearPresbyopiaCataract Senile NuclearPresbyopiaCataract Senile NuclearPresbyopiaCataract Senile NuclearPresbyopiaCataract Senile NuclearPresbyopiaCataract Senile NuclearPresbyopiaCataract Senile NuclearPresbyopiaCataract Senile NuclearPresbyopiaCataract Senile NuclearPresbyopiaCataract Senile Nuclear Presbyopia Cataract Senile Nuclear Presbyopia Cataract Senile Nuclear Presbyopia Cataract Senile Nuclear Presbyopia Cataract Senile Nuclear Presbyopia Cataract Senile Nuclear Presbyopia Cataract Senile Nuclear Presbyopia Cataract Senile Nuclear Presbyopia Cataract Senile Nuclear Presbyopia Cataract Senile Nuclear Presbyopia Cataract Senile Nuclear Presbyopia Cataract Senile Nuclear Presbyopia Cataract Senile Nuclear Presbyopia Cataract Senile Nuclear Outpatient<td Attender: [facility] 07/12/2015 [place] ID="[id number]">*No [facility] 04:46:00 PM ([place] Show*</td><td>OSMIN LEE MD [place] EST - Neighborhood </td><td>[facility] 07/12/2015 Health Center</td><td>07/12/2015</td><td></td> 11:59:0 0 PM Center) EST Outpatient<td Attender: [facility] 07/04/2015 [place] ID="[id number]">Follow [facility] 10:30: 00 AM ([facility]</td><td>DAVIS CABRAL [facility] EST - Neighborhood PREFLIGHT INSPECTOR</td><td>[facility] 07/04/2015 Health Center</td><td>07/04/2015</td><td></td> 11:18:3 4 AM Center) EST Outpatient<td Attender: [facility] 05/31/2015 R [place] ID="[id number]">Follow [facility] 10:30: 00 AM e ([facility]</td><td>TAQUERIA MATHEW [facility] EST - n Neighborhood </td><td>[facility] 05/31/2015 a Health Center</td><td>05/31/2015</td><td><vikas 04:40: 46 PM l [place]) nt ID="[id number]">Renal EST C Cyst</content>, <content y ID="[id number]">Essential s Hypertension Benign</content></td> t R e n a l C y s t R e n a l C y s t R e n a l C y s t R e n a l C y s t R e n a l C y s t R e n a l C y s t R e n a l C y s t R e n a l C y s t R e n a l C y s t R e n a l C y s t R e n a l C y s t R e n a l C y s t E s s e n t i a l H y p e r t e n s i o n B e n i g n E s s e n t i a l H y p e r t e n s i o n B e n i g n E s s e n t i a l H y p e r t e n s i o n B e n i g n E s s e n t i a l H y p e r t e n s i o n B e n i g n E s s e n t i a l H y p e r t e n s i o n B e n i g n E s s e n t i a l H y p e r t e n s i o n B e n i g n E s s e n t i a l H y p e r t e n s i o n B e n i g n E s s e n t i a l H y p e r t e n s i o n B e n i g n E s s e n t i a l H y p e r t e n s i o n B e n i g n E s s e n t i a l H y p e r t e n s i o n B e n i g n E s s e n t i a l H y p e r t e n s i o n B e n i g n E s s e n t i a l H y p e r t e n s i o n B e n i g n E s s e n t i a l H y p e r t e n s i o n B e n i g n Renal Cyst Renal Cyst Renal Cyst Renal Cyst Renal Cyst Renal Cyst Renal Cyst Renal Cyst Renal Cyst Renal Cyst Renal Cyst Renal Cyst Renal Cyst Essential 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 Benign Outpatient<td Attender: [facility] 05/30/2015 Renal [place] ID="[id number]">Regular [facility] 09:30 :00 AM CystRenal ([place] Sonogram</td><td>[facility] EST - Cys [facility]</td><td>[facility] 05/30/2015 Cyst[facility]</td><td>05/30/2015</td><td><content 10:2 9:18 AM CystRenal Center) ID="[id number]">Renal EST CystRenal Cyst</content></td> CystRenal CystRenal CystRenal CystRenal CystRenal CystRenal CystRenal Cyst Renal Cyst Renal Cyst Renal Cyst Renal Cyst Renal Cyst Renal Cyst Renal Cyst Renal Cyst Renal Cyst Renal Cyst Renal Cyst Renal Cyst Renal Cyst Outpatient<td Attender: 05/23/2015 [place] ID="[id number]">*[facility] TAQUERIA 09:08: 00 AM ([place] Update*</td><td>TAQUERIA MATHEW EST - Neighborhood </td><td> 05/23/2015 Health </td><td>05/23/2015</td><td></td> 11:59:00 PM [place]) EST Outpatient<td Attender: Jakob 05/16/2015 Pool [place] ID="[id number]">YASMEEN hubbard 11:00 :00 AM on-ty (Blade Hernandez </td><td>TAQUERIA MATHEW [facility] EST - pe Neighborhood </td><td>Renea Gomez MD h 05/16/2015 [facility]</td><td>05/16/2015</td><td><conten Cente 01:06 :27 PM [facility]) t r EST nsion ID="[id number]">Tension-typ -type e Headache</content></td> Heada cheTe nsion -type Heada cheTe nsion -type Heada cheTe nsion -type Heada cheTe nsion -type Heada cheTe nsion -type Heada cheTe nsion -type Heada cheTe nsion -type Heada cheTe nsion -type Heada cheTe nsion -type Heada cheTe nsion -type Heada cheTe nsion -type Heada chu Tension-type Headache Tension-type Headache Tension-type Headache Tension-type Headache Tension-type Headache Tension-type Headache Tension-type Headache Tension-type Headache Tension-type Headache Tension-type Headache Tension-type Headache Tension-type Headache Tension-type Headache Outpatient<td Attender: [facility] 06/21/2014 [place] ID="[id number]">*No [facility] 06:40:00 PM ([place] Show*</td><td>TAQUERIA MATHEW [place] EST - Neighborhood </td><td>Renea Gomez MD 06/21/2014 Health Center</td><td>06/21/2014</td><td></td> 11:59:0 0 PM [place]) EST Outpatient<td Attender: [facility] 11/16/2013 A [place] ID="[id number]">OFFICE [facility] 09:29: 00 AM s ([place] VISIT</td><td>TAQUERIA MIRIAN [facility] EDT - s [facility] </td><td[facility]</td><td>11/16/2013</td><td><vikas 11:36: 44 AM s Center) nt EDT s ID="[id number]">Assessment m of Abdominal Pain Upper</content></td> e n t o f A b d o m i n a l P a i n U p p e r A s s e s s m e n t o f A b d o m i n a l P a i n U p p e r A s s e s s m e n t o f A b d o m i n a l P a i n U p p e r A s s e s s m e n t o f A b d o m i n a l P a i n U p p e r A s s e s s m e n t o f A b d o m i n a l P a i n U p p e r A s s e s s m e n t o f A b d o m i n a l P a i n U p p e r A s s e s s m e n t o f A b d o m i n a l P a i n U p p e r A s s e s s m e n t o f A b d o m i n a l P a i n U p p e r A s s e s s m e n t o f A b d o m i n a l P a i n U p p e r A s s e s s m e n t o f A b d o m i n a l P a i n U p p e r A s s e s s m e n t o f A b d o m i n a l P a i n U p p e r A s s e s s m e n t o f A b d o m i n a l P a i n U p p e r A s s e s s m e n t o f A b d o m i n a l P a i n U p p e r Assessment of Abdominal Pain Upper Assessment of Abdominal Pain Upper Assessment of Abdominal Pain Upper Assessment of Abdominal Pain Upper Assessment of Abdominal Pain Upper Assessment of Abdominal Pain Upper Assessment of Abdominal Pain Upper Assessment of Abdominal Pain Upper Assessment of Abdominal Pain Upper Assessment of Abdominal Pain Upper Assessment of Abdominal Pain Upper Assessment of Abdominal Pain Upper Assessment of Abdominal Pain Upper Outpatient<td Attender: [facility] 10/24/2013 [place] ID="[id number]">*No [facility] 04:41:00 PM ([place] Show*</td><td>[facility] EDT - Lar[place] DANIELLE</td><td>[facility] 10/24/2013 Health Center</td><td>10/24/2013</td><td></td> 11:59:0 0 PM Center) EDT Outpatient<td Attender: [facility] 10/05/2013 [place] ID="[id number]">[facility] 09:[facility] AM ([facility] jud[facility] Sonogram</td><td>[facility] EDT - Neighborhood TECH</td><td>[facility] TECH 10/05/2013 Health Center</td><td>10/05/2013</td><td></td> 11:59:0 0 PM Center) EDT Outpatient<td Attender: [facility] 09/08/2013 E [place] ID="[id number]">Follow [facility] 09:16: 00 AM s (Blade Hernandez Up</td><td>[facility] EDT - o Larissa DANIELLE</td><td>[facility] 09/08/2013 p Health Center</td><td>09/08/2013</td><td><[place]as 11:15: 32 AM h Center) nt EDT a ID="[id number]">Gastritis< g /content>, <content e ID="[id number]">Esophageal a Reflux</content></td> l R e f l u x G a s t r i t i s E s o p h a g e a l R e f l u x G a s t r i t i s E s o p h a g e a l R e f l u x G a s t r i t i s E s o p h a g e a l R e f l u x G a s t r i t i s E s o p h a g e a l R e f l u x G a s t r i t i s E s o p h a g e a l R e f l u x G a s t r i t i s E s o p h a g e a l R e f l u x G a s t r i t i s E s o p h a g e a l R e f l u x G a s t r i t i s E s o p h a g e a l R e f l u x G a s t r i t i s E s o p h a g e a l R e f l u x G a s t r i t i s E s o p h a g e a l R e f l u x G a s t r i t i s E s o p h a g e a l R e f l u x G a s t r i t i s E s o p h a g e a l R e f l u x G a s t r i t i s Esophageal Reflux Gastritis Esophageal Reflux Gastritis Esophageal Reflux Gastritis Esophageal Reflux Gastritis Esophageal Reflux Gastritis Esophageal Reflux Gastritis Esophageal Reflux Gastritis Esophageal Reflux Gastritis Esophageal Reflux Gastritis Esophageal Reflux Gastritis Esophageal Reflux Gastritis Esophageal Reflux Gastritis Esophageal Reflux Gastritis Outpatient<td Attender: [facility] 08/09/2013 [place] ID="[id number]">*No [facility] 04:33:00 PM ([place] Show*</td><td>TAQUERIA MATHEW [facility] EST - Larissa DANIELLE</td><td>Renea Gomez MD 08/09/2013 Health Center</td><td>08/09/2013</td><td></td> 11:59:0 0 PM Center) EST Outpatient<td Attender: [facility] 07/26/2013 G [place] ID="[id number]">WALKIN [facility] 09:18: 00 AM r ([place] S</td><td>TAQUERIA MATHEW [facility] EST - o Larissa DANIELLE</td><td>Renea Gomez MD 07/26/2013 [facility]</td><td>07/26/2013</td><td><[place]as 10:05: 07 AM Center) nt EST H ID="[id number]">Assessment e of Abdominal Pain</content>, <content m ID="[id number]">Gross a Hematuria</content></td> t u r i a A s s e s s m e n t o f A b d o m i n a l P a i n G r o s s H e m a t u r i a A s s e s s m e n t o f A b d o m i n a l P a i n G r o s s H e m a t u r i a A s s e s s m e n t o f A b d o m i n a l P a i n G r o s s H e m a t u r i a A s s e s s m e n t o f A b d o m i n a l P a i n G r o s s H e m a t u r i a A s s e s s m e n t o f A b d o m i n a l P a i n G r o s s H e m a t u r i a A s s e s s m e n t o f A b d o m i n a l P a i n G r o s s H e m a t u r i a A s s e s s m e n t o f A b d o m i n a l P a i n G r o s s H e m a t u r i a A s s e s s m e n t o f A b d o m i n a l P a i n G r o s s H e m a t u r i a A s s e s s m e n t o f A b d o m i n a l P a i n G r o s s H e m a t u r i a A s s e s s m e n t o f A b d o m i n a l P a i n G r o s s H e m a t u r i a A s s e s s m e n t o f A b d o m i n a l P a i n G r o s s H e m a t u r i a A s s e s s m e n t o f A b d o m i n a l P a i n G r o s s H e m a t u r i a A s s e s s m e n t o f A b d o m i n a l P a i n Gross Hematuria Assessment of Abdominal Pain Gross Hematuria Assessment of Abdominal Pain Gross Hematuria Assessment of Abdominal Pain Gross Hematuria Assessment of Abdominal Pain Gross Hematuria Assessment of Abdominal Pain Gross Hematuria Assessment of Abdominal Pain Gross Hematuria Assessment of Abdominal Pain Gross Hematuria Assessment of Abdominal Pain Gross Hematuria Assessment of Abdominal Pain Gross Hematuria Assessment of Abdominal Pain Gross Hematuria Assessment of Abdominal Pain Gross Hematuria Assessment of Abdominal Pain Gross Hematuria Assessment of Abdominal Pain Outpatient<td Attender: [facility] 07/19/2013 [place] ID="[id number]">WALKINS</td><td>[facility] 10:28:00 AM ([place] MIRIAN MATHEW MD</td><td>[facility] EST - [facility] Center</td><td>07/19/2013</td><td></td> [address] [place] [address] 11:59:00 PM [place]) EST Outpatient<td ID="[id number]">Follow Attender: [facility] 02/02/2013 [facility]</td><td>TAQUERIA MATHEW MD</td><td>[facility] 09:44:00 AM y ([facility]</td><td>02/02/2013</td><td><[facility] EDT - p Neighborhood ID="[id number]">Angina Pectoris</content>MD 02/02/2013 e Health <content 02:18:02 PM [facility]) ID="[id number]">Palpitations</content>, EDT t <content ID="[id number]">Hypertension e (systemic)</content></td> n s i o n ( s y s t e m i c ) P a l p i t a t i o n s A n g i n a P e c t o r i s H y p e r t e n s i o n ( s y s t e m i c ) P a l p i t a t i o n s A n g i n a P e c t o r i s H y p e r t e n s i o n ( s y s t e m i c ) P a l p i t a t i o n s A n g i n a P e c t o r i s H y p e r t e n s i o n ( s y s t e m i c ) P a l p i t a t i o n s A n g i n a P e c t o r i s H y p e r t e n s i o n ( s y s t e m i c ) P a l p i t a t i o n s A n g i n a P e c t o r i s H y p e r t e n s i o n ( s y s t e m i c ) P a l p i t a t i o n s A n g i n a P e c t o r i s H y p e r t e n s i o n ( s y s t e m i c ) P a l p i t a t i o n s A n g i n a P e c t o r i s H y p e r t e n s i o n ( s y s t e m i c ) P a l p i t a t i o n s A n g i n a P e c t o r i s H y p e r t e n s i o n ( s y s t e m i c ) P a l p i t a t i o n s A n g i n a P e c t o r i s H y p e r t e n s i o n ( s y s t e m i c ) P a l p i t a t i o n s A n g i n a P e c t o r i s H y p e r t e n s i o n ( s y s t e m i c ) P a l p i t a t i o n s A n g i n a P e c t o r i s H y p e r t e n s i o n ( s y s t e m i c ) P a l p i t a t i o n s A n g i n a P e c t o r i s H y p e r t e n s i o n ( s y s t e m i c ) P a l p i t a t i o n s A n g i n a P e c t o r i s Hypertension (systemic) Palpitations Angina Pectoris Hypertension (systemic) Palpitations Angina Pectoris Hypertension (systemic) Palpitations Angina Pectoris Hypertension (systemic) Palpitations Angina Pectoris Hypertension (systemic) Palpitations Angina Pectoris Hypertension (systemic) Palpitations Angina Pectoris Hypertension (systemic) Palpitations Angina Pectoris Hypertension (systemic) Palpitations Angina Pectoris Hypertension (systemic) Palpitations Angina Pectoris Hypertension (systemic) Palpitations Angina Pectoris Hypertension (systemic) Palpitations Angina Pectoris Hypertension (systemic) Palpitations Angina Pectoris Hypertension (systemic) Palpitations Angina Pectoris Outpatient<td Attender: [place] 01/31/2013 [place] ID="[id number]">[facility] 09:[facility] ([facility]</td><td>CHRISTINE WILEY MD Health [facility] EDT - [place] DANIELLE</td><td>[facility] 01/31/2013 Health Health 11:59:00 PM Center) [place]</td><td>01/31/2013</td><td></td> EDT Outpatient<td Attender: Renea 01/29/2013 [facility] ID="[id number]">[facility] 09: 28:00 AM y ([facility]</td><td>TAQUERIA BELTRAN - p Larissa DANIELLE</td><td>[facility] 01/29/2013 e Health Center</td><td>01/29/2013</td><td><vikas 10:32: 32 AM r [place]) nt ID="[id number]">Chest EDT t Pain</content>, <content e ID="[id number]">Palpitatio n ns</content>, <content s ID="[id number]">Hypertensi i on (systemic)</content></td> o n ( s y s t e m i c ) P a l p i t a t i o n s C h e s t P a i n H y p e r t e n s i o n ( s y s t e m i c ) P a l p i t a t i o n s C h e s t P a i n H y p e r t e n s i o n ( s y s t e m i c ) P a l p i t a t i o n s C h e s t P a i n H y p e r t e n s i o n ( s y s t e m i c ) P a l p i t a t i o n s C h e s t P a i n H y p e r t e n s i o n ( s y s t e m i c ) P a l p i t a t i o n s C h e s t P a i n H y p e r t e n s i o n ( s y s t e m i c ) P a l p i t a t i o n s C h e s t P a i n H y p e r t e n s i o n ( s y s t e m i c ) P a l p i t a t i o n s C h e s t P a i n H y p e r t e n s i o n ( s y s t e m i c ) P a l p i t a t i o n s C h e s t P a i n H y p e r t e n s i o n ( s y s t e m i c ) P a l p i t a t i o n s C h e s t P a i n H y p e r t e n s i o n ( s y s t e m i c ) P a l p i t a t i o n s C h e s t P a i n H y p e r t e n s i o n ( s y s t e m i c ) P a l p i t a t i o n s C h e s t P a i n H y p e r t e n s i o n ( s y s t e m i c ) P a l p i t a t i o n s C h e s t P a i n H y p e r t e n s i o n ( s y s t e m i c ) P a l p i t a t i o n s C h e s t P a i n Hypertension (systemic) Palpitations Chest Pain Hypertension (systemic) Palpitations Chest Pain Hypertension (systemic) Palpitations Chest Pain Hypertension (systemic) Palpitations Chest Pain Hypertension (systemic) Palpitations Chest Pain Hypertension (systemic) Palpitations Chest Pain Hypertension (systemic) Palpitations Chest Pain Hypertension (systemic) Palpitations Chest Pain Hypertension (systemic) Palpitations Chest Pain Hypertension (systemic) Palpitations Chest Pain Hypertension (systemic) Palpitations Chest Pain Hypertension (systemic) Palpitations Chest Pain Hypertension (systemic) Palpitations Chest Pain Outpatient<td Attender: [facility] 01/27/2012 Neurologic [place] ID="[id number]">Follow [facility] 09:25:00 AM DisordersAcute ([facility]</td><td>[place] [facility] - AbdomenAt ypical Neighborhood </td><td>[facility] 01/27/2012 [facility]</td><td>01/27/2012</td><td><content 11:1 9:29 AM [facility]) ID="[id number]">Atypical EDT DisordersAcute Chest Pain</content>, <content Abdom enAtypical ID="[id number]">Essential Chest Hypertension Benign</content>, <content PainNeurologic ID="[id number]">Acute DisordersAcute Abdomen</content>, <content AbdomenA typical ID="[id number]">Neurologic Chest Disorders</content></td> PainNeurolo gic DisordersAcute AbdomenAtypical Chest PainNeurologic DisordersAcute AbdomenAtypical Chest PainNeurologic DisordersAcute AbdomenAtypical Chest PainNeurologic DisordersAcute AbdomenAtypical Chest PainNeurologic DisordersAcute AbdomenAtypical Chest PainNeurologic DisordersAcute AbdomenAtypical Chest PainNeurologic DisordersAcute AbdomenAtypical Chest PainNeurologic DisordersAcute AbdomenAtypical Chest PainNeurologic DisordersAcute AbdomenAtypical Chest PainNeurologic DisordersAcute AbdomenAtypical Chest PainEssential Hypertension BenignEssential Hypertension BenignEssential Hypertension BenignEssential Hypertension BenignEssential Hypertension BenignEssential Hypertension BenignEssential Hypertension BenignEssential Hypertension BenignEssential Hypertension BenignEssential Hypertension BenignEssential Hypertension BenignEssential Hypertension BenignEssential Hypertension Benign Neurologic Disorders Acute Abdomen Atypical Chest Pain Neurologic Disorders Acute Abdomen Atypical Chest Pain Neurologic Disorders Acute Abdomen Atypical Chest Pain Neurologic Disorders Acute Abdomen Atypical Chest Pain Neurologic Disorders Acute Abdomen Atypical Chest Pain Neurologic Disorders Acute Abdomen Atypical Chest Pain Neurologic Disorders Acute Abdomen Atypical Chest Pain Neurologic Disorders Acute Abdomen Atypical Chest Pain Neurologic Disorders Acute Abdomen Atypical Chest Pain Neurologic Disorders Acute Abdomen Atypical Chest Pain Neurologic Disorders Acute Abdomen Atypical Chest Pain Neurologic Disorders Acute Abdomen Atypical Chest Pain Neurologic Disorders Acute Abdomen Atypical Chest Pain Essential 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 Benign Outpatient<td Attender: 01/20/2012 [place] ID="[id number]">*Lexis Cheung 09:15:00 AM ([facility]*</td><td>[facility] </td><td> 01/20/2012 Health </td><td>01/20/2012</td><td></td> 11:59:00 PM [place]) EDT Outpatient<td Attender: [facility] 01/06/2012 Acute [place] ID="[id number]">Foll [facility] 09:29:00 AM Abdome (Blade Hernandez ow Up</td><td>[facility]td><td>[facility] 01/06/2012 [facility]</td><td>01/06/2012</td><td><con 01:26:09 PM [facility]) tent EDT Abdome ID="[id number]">[facility] nAcute l Hypertension Benign</content>, Abd ome <content nAcute ID="[id number]">Acute Abdome Abdomen</content></td> nAcute Abdome nAcute Abdome nAcute Abdome nAcute Abdome nAcute Abdome nAcute Abdome nAcute Abdome nAcute Abdome nEssen tial Hypert ension Benign Essent ial Hypert ension Benign Essent ial Hypert ension Benign Essent ial Hypert ension Benign Essent ial Hypert ension Benign Essent ial Hypert ension Benign Essent ial Hypert ension Benign Essent ial Hypert ension Benign Essent ial Hypert ension Benign Essent ial Hypert ension Benign Essent ial Hypert ension Benign Essent ial Hypert ension Benign Essent ial Hypert ension Benign Acute Abdomen Acute Abdomen Acute Abdomen Acute Abdomen Acute Abdomen Acute Abdomen Acute Abdomen Acute Abdomen Acute Abdomen Acute Abdomen Acute Abdomen Acute Abdomen Acute Abdomen Essential 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 Benign Outpatient<td Attender: 12/05/2011 GUDELIA ID="[id number]">*No Jonatan 04:23:00 PM (Blade Hernandez Show*</td><td>[facility] - Neighborhood </td><td> 12/05/2011 [facility] </td><td>12/05/2011</td><td></td> 11:59:00 PM Center) EDT Outpatient<td Attender: [facility] 11/04/2011 GUDELIA ID="[id number]">[facility] 11:29:0 0 AM (Blade Skinner</td><td>[facility] [place] EDT - Neighborhood </td><td>[facility] 11/04/2011 Health Center</td><td>11/04/2011</td><td></td> 01:46:1 9 PM Center) EDT Outpatient<td [facility] 08/28/2011 GUDELIA ID="[id number]">[facility] 10:00:0 0 AM (Blade CHRISTINE</td><td> [place] EDT - Neighborhood </td><td>[facility] 08/28/2011 Health Center</td><td>08/28/2011</td><td></td> 11:59:0 0 PM Center) EDT Outpatient<td [facility] 06/26/2011 GUDELIA ID="[id number]">[facility] 10:45:0 0 AM ([place]</td><td> Center [facility] </td><td>[facility] 06/26/2011 Health Center</td><td>06/26/2011</td><td></td> 11:59:0 0 PM Center) EST Outpatient<td [facility] 05/31/2011 GUDLEIA ID="[id number]">[facility] 10:00:0 0 AM ([facility]</td><td> Center [facility] </td><td>[facility] 05/31/2011 Health Center</td><td>05/31/2011</td><td></td> 11:59:0 0 PM Center) EST Immunizations Vaccine Date Status Description Data Source(s) pneumococcal 03/06/2016 completed Pneumovax 1 03/06/2016 Right Active [facility] polysaccharide 11:26:00 AM 23 Arm (Administer ed) Neighborhood ([place] PPV23 EDT [facility]) Medications Medication Brand Start Product Dose Route Administrative Pharmacy [facility] Indications Reaction Description Data Name Date Form Instructions Instructions Source(s) Clarithromy Clarit 12/22/ UNIT 1 active Clarith romyc [place] robert 500 MG hromyc 2019 in ([place] Oral Tablet in 12:00: David Clarithromy 500MG 00 AM Neighb orho robert 500MG Oral EDT od Health Oral Tablet Tablet Center ) Omeprazole Omepra 12/22/ UNIT 1 active Omeprazo le GUDELIA 20 MG zole 2019 ([place] Delayed 20MG 12:00: David Release Oral 00 AM Neighborho Oral Tablet Tablet EDT od [facility] Omeprazole [place]) 20MG Oral d Tablet Releas Delayed e Release Amoxicillin Amoxic 12/22/ UNIT 1 active Amoxici llin GUDELIA 500 MG Oral illin 2019 ([place] Tablet 500MG 12:00: David Amoxicillin Oral 00 AM Neigh[place] rho 500MG Oral Tablet EDT od [facility] Tablet Center) Hydrocortis Hydroc 05/03/ APPLICAT 1 active Hyd rocortiso [place] one 10 ortiso 2019 ION UNIT ne ([place] MG/ML ne 1% 12:00: David 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 Dispense: 20 traMADol UNK complet traMADol HC l [place] HCl 50 MG 2019 MG ed 50 MG Oral r Co unty Oral Tablet 01:53: Tablet TAKE Health 24 PM 1 TABLET Care EDT EVERY 4 TO 6 Corpora elaine HOURS n NEEDED FOR PAIN. Dispense: 15 Motrin Motrin UNK active Motrin [place] (Ibuprofen) (Ibupr 2019 mg (Ibuprofen) [place]) 01:52: Oral 600 mg Healt h O 20 PM PO Care EDT Corporatio n Medication administered onsite Metoprolol Metoprolol 04/08/2019 UNIT 1 active Metoprolol GUDELIA Tartrate 50 Tartrate 12:00:00 AM Ta rtrate ([place] MG Oral 50MG Oral EDT [place] Tablet Tablet [facility] Metoprolol [place]) Tartrate 50MG Oral Tablet Hydrochloroth Losartan 04/08/2019 UNIT 1 active Losartan GUDELIA iazide 12.5 Potassium-HC 12:00:00 AM Potassium-HC ([place] MG / Losartan TZ 50-12.5MG EDT TZ Neighborhood Potassium 50 Oral Tablet Health MG Oral [place]) Tablet Losartan Potassium-HCT Z 50-12.5MG Oral Tablet Metoprolol Metoprolol 11/22/2018 UNIT 1 suspende Metoprolol GUDELIA Tartrate 50 Tartrate 12:00:00 AM d Ta rtrate ([place] MG Oral 50MG Oral EDT [place] Tablet Tablet [facility] Metoprolol [place]) Tartrate 50MG Oral Tablet Hydrochloroth Losartan 11/22/2018 UNIT 1 suspende Losartan GUDELIA iazide 12.5 Potassium-HC 12:00:00 AM d Potassium-HC ([place] MG / Losartan TZ 50-12.5MG EDT TZ Neighborhood Potassium 50 Oral Tablet Health MG Oral [place]) Tablet Losartan Potassium-HCT Z 50-12.5MG Oral Tablet Dexilant 60MG Dexilant 09/04/2017 UNIT 1 active Dexilant GUDELIA Oral Capsule 60MG Oral 12:00:00 AM ([place] Delayed Capsule EDT [facility] ood Release Delayed Health Release [place]) Hydrochloroth Losartan 03/31/2017 UNIT 1 suspende Losartan GUDELIA iazide 12.5 Potassium-HC 12:00:00 AM d Potassium-HC ([place] MG / Losartan TZ 50-12.5MG EDT TZ Neighborhood Potassium 50 Oral Tablet Health MG Oral [place]) Tablet Losartan Potassium-HCT Z 50-12.5MG Oral Tablet Metoprolol Metoprolol 03/31/2017 UNIT 1 suspende Metoprolol GUDELIA Tartrate 50 Tartrate 12:00:00 AM d Ta rtrate ([place] MG Oral 50MG Oral EDT Neigh[place] rho Tablet Tablet Health Metoprolol [place]) Tartrate 50MG Oral Tablet Amoxicillin Amoxicillin 03/16/2017 UNIT 1 complete Amoxicillin GUDELIA 500 MG Oral 500MG Oral 12:00:00 AM d ([place] Capsule Capsule EDT [facility] Amoxicillin Health 500MG Oral [place]) Capsule Metoprolol Metoprolol 03/06/2016 UNIT 1 suspende Metoprolol GUDELIA Tartrate 50 Tartrate 50 12:00:00 AM d Tartrate ([place] MG Oral MG Tablet EDT Neighb rho Tablet Health Metoprolol [place]) Tartrate 50 MG Tablet Guaifenesin GuaiFENesin 03/06/2016 CAPFUL 1 active guaiFENesin GUDELIA 20 MG/ML Oral 200 MG/10ML 12:00:00 AM DOSING ([place] Solution Solution EDT UNIT Neighb rho GuFENesin [facility] 200 MG/10ML [place]) Solution Hydrochloroth Losartan 03/06/2016 UNIT 1 suspende Losartan GUDEL[place] iazide 12.5 Potassium-HC 12:00:00 AM d Potassium-HC ([place] MG / Losartan TZ 50-12.5 EDT TZ Neighborhood Potassium 50 MG Tablet He alth MG Oral [place]) Tablet Losartan Potassium-HCT Z 50-12.5 MG Tablet PriLOSEC OTC PriLOSEC OTC 03/06/2016 UNIT 1 active Prilosec GUDELIA 20 MG Tablet 20 MG Tablet 12:00:00 AM ([place] Delayed Delayed EDT [facility] ood Release Release Health [place]) Reglan 10 MG Reglan 10 MG 09/08/2013 UNIT 1 suspende Reglan GUDELAI TABS TABS 12:00:00 AM d ([facility]) Reglan 5 MG Reglan 5 MG 07/26/2013 UNIT 1 suspende Reglan GUDELIA TABS TABS 12:00:00 AM d ([facility]) Lopressor Lopressor 01/29/2013 UNIT 1 suspende Lopressor GUDELIA 50MG OR TABS 50MG OR TABS 12:00:00 AM d ([facility]) Hydrochloroth Losartan 11/04/2011 UNIT 1 suspende Losartan GUDELIA iazide 12.5 Potassium-HC 12:00:00 AM d Potassium-HC ([place] MG / Losartan TZ 50-12.5MG EDT TZ [facility] Potassium 50 OR TABS Heal th MG Oral Center) Tablet Losartan Potassium-HCT Z 50-12.5MG OR TABS PriLOSEC OTC PriLOSEC OTC 11/04/2011 UNIT 1 suspende Prilosec GUDELIA 20MG OR TBEC 20MG OR TBEC 12:00:00 AM d ([facility]) PriLOSEC OTC PriLOSEC OTC 11/04/2011 UNIT 1 suspende Prilosec GUDELIA 20MG OR TBEC 20MG OR TBEC 12:00:00 AM d ([facility]) Hydrochloroth Losartan 11/04/2011 UNIT 1 suspende Losartan GUDEL[place] iazide 12.5 Potassium-HC 12:00:00 AM d Potassium-HC ([place] MG / Losartan TZ 50-12.5MG EDT TZ [facility] Potassium 50 OR TABS Heal th MG Oral Center) Tablet Losartan Potassium-HCT Z 50-12.5MG OR TABS Not Taking Not Taking 999 UN complete Not Taking [place] Home Meds Home Meds MG K d Home Meds [facility] Insurance Providers Payer name Policy type Policy ID Covered Covered Policy Plan / Coverage libertarian ID libertarian's Pollard Informati on type relationship to pollard [facility] [id number] SP [id number] (MEDICARE) JAMES MEDICARE [id number] SP [id number] [facility] Individual 0 Self 0 Employees ([place]) Policy - [facility] [id number] SP [id number] (MEDICARE) [facility] Individual 0 Self 0 Employees ([place]) Policy - [facility] Individual 0 Self 0 Employees ([place]) Policy - [facility] SENIOR [id number] SP [id number] PLAN MEDICAID [id number] SP [id number] MEDICARE [id number] SP [id number] Medicare Part A of Individual 0 Self 0 [place] Policy Medicare Part A of Individual 0 Self 0 [place] Policy [id number] [id number] [id number] Medicare Part A of Individual 0 Self 0 [place] Policy Medicare Part A of Individual 0 Self 0 [place] Policy Medicare Part A of Individual 0 Self 0 [place] Policy Medicare Part A of Individual 0 Self 0 [place] Policy Medicaid [id number] Regular Clinic Visit Medicare-Blue [id number] S [id number] Cross/Blue Shield Medicare United [id number] S [id number] Government Services Medicare United [id number] S [id number] [id number] Government Services MedicareUc [facility] [id number] S [id number] Cross/Blue Shield Medicare Part A of Individual 0 Self 0 [place] Policy Medicare Part A of Individual 0 Self 0 [place] Policy Medicare Part A of Individual 0 Self 0 [place] Policy Problems, Conditions, and Diagnoses Code Display Name Description Problem Effective Data Source (s) Type Dates [id number] Helicobacter-associ Helicobacter Pylori Problem 020 GUDELIA ated disease (h. Pylori) 12:00:00 AM ([facility] non (disorder) Infection [facility]) [id number] Constipation Constipation Problem 12/23/2019 GUDELIA (disorder) 12:00:00 AM ([facility]) 3681830 Helicobacter-associ Helicobacter Pylori Problem 020 GUDELIA ated disease (h. Pylori) 12:00:00 AM ([facility] non (disorder) Infection [facility]) 36849222 Constipation Constipation Problem 12/23/2019 GUDELIA (disorder) 12:00:00 AM ([facility]) 8805107 Id reaction Cutaneous Problem 05/03/2019 GUDEL[place] (disorder) Autosensitization 12:00:00 AM ([facility]) 4753266 Id reaction Cutaneous Problem 05/03/2019 GUDEL[place] (disorder) Autosensitization 12:00:00 AM ([facility]) 3155550 Id reaction Cutaneous Problem 05/03/2019 GUDELIA (disorder) Autosensitization 12:00:00 AM ([facility]) 6864048 Id reaction Cutaneous Problem 05/03/2019 GUDELIA (disorder) Autosensitization 12:00:00 AM ([facility]) 2192804 Id reaction Cutaneous Problem 05/03/2019 GUDELIA (disorder) Autosensitization 12:00:00 AM ([facility]) 70934546 Common cold Common Cold Problem 09/30/2018 GUDELIA (disorder) 12:00:00 AM ([facility]) 28723266 Common cold Common Cold Problem 09/30/2018 GUDELIA (disorder) 12:00:00 AM ([facility]) 32668067 Common cold Common Cold Problem 09/30/2018 GUDELIA (disorder) 12:00:00 AM ([facility]) 62469823 Common cold Common Cold Problem 09/30/2018 GUDELIA (disorder) 12:00:00 AM ([facility]) 34766557 Common cold Common Cold Problem 09/30/2018 GUDELIA (disorder) 12:00:00 AM ([facility]) 33134674 Common cold Common Cold Problem 09/30/2018 GUDELIA (disorder) 12:00:00 AM ([facility]) 64836848 Common cold Common Cold Problem 09/30/2018 GUDELIA (disorder) 12:00:00 AM ([facility]) 16765643 Common cold Common Cold Problem 09/30/2018 GUDELIA (disorder) 12:00:00 AM ([facility]) 66746775 Common cold Common Cold Problem 09/30/2018 GUDELIA (disorder) 12:00:00 AM ([facility]) 79772316 Common cold Common Cold Problem 09/30/2018 GUDELIA (disorder) 12:00:00 AM ([facility]) 315910613 Malabsorption of Glucose Intolerance Problem 09/15/2016 GUDELIA glucose (disorder) 12:00:00 AM ([facility]) 560607662 Malabsorption of Glucose Intolerance Problem 09/15/2016 GUDELIA glucose (disorder) 12:00:00 AM ([facility]) 982453061 Malabsorption of Glucose Intolerance Problem 09/15/2016 GUDELIA glucose (disorder) 12:00:00 AM ([facility]) 786472652 Malabsorption of Glucose Intolerance Problem 09/15/2016 GUDELIA glucose (disorder) 12:00:00 AM ([facility]) 739707980 Malabsorption of Glucose Intolerance Problem 09/15/2016 UGDEL[place] glucose (disorder) 12:00:00 AM ([facility]) 008041396 Malabsorption of Glucose Intolerance Problem 09/15/2016 GUDELIA glucose (disorder) 12:00:00 AM ([facility]) 106290911 Malabsorption of Glucose Intolerance Problem 09/15/2016 GUDELIA glucose (disorder) 12:00:00 AM ([facility]) 466196681 Malabsorption of Glucose Intolerance Problem 09/15/2016 GUDELIA glucose (disorder) 12:00:00 AM ([facility]) 468155461 Malabsorption of Glucose Intolerance Problem 09/15/2016 GUDEL[place] glucose (disorder) 12:00:00 AM ([facility]) 470464482 Malabsorption of Glucose Intolerance Problem 09/15/2016 [place] glucose (disorder) 12:00:00 AM ([facility]) 937651797 Malabsorption of Glucose Intolerance Problem 09/15/2016 GUDELIA glucose (disorder) 12:00:00 AM ([facility]) 875173894 Malabsorption of Glucose Intolerance Problem 09/15/2016 GUDELIA glucose (disorder) 12:00:00 AM ([facility]) 512599947 Malabsorption of Glucose Intolerance Problem 09/15/2016 GUDELIA glucose (disorder) 12:00:00 AM ([facility]) 530.9 Gerd Gerd Problem 03/06/2016 GUDELIA 12:00:00 AM ([facility]) 530.9 Gerd Gerd Problem 03/06/2016 GUDELIA 12:00:00 AM ([facility]) 530.9 Gerd Gerd Problem 03/06/2016 GUDELIA 12:00:00 AM ([facility]) 530.9 Gerd Gerd Problem 03/06/2016 GUDELIA 12:00:00 AM ([facility]) 530.9 Gerd Gerd Problem 03/06/2016 GUDELIA 12:00:00 AM ([facility]) 530.9 Gerd Gerd Problem 03/06/2016 GUDELIA 12:00:00 AM ([facility]) 530.9 Gerd Gerd Problem 03/06/2016 GUDELIA 12:00:00 AM ([facility]) 530.9 Gerd Gerd Problem 03/06/2016 GUDELIA 12:00:00 AM ([facility]) 530.9 Gerd Gerd Problem 03/06/2016 GUDELIA 12:00:00 AM ([facility]) 530.9 Gerd Gerd Problem 03/06/2016 GUDELIA 12:00:00 AM ([facility]) 530.9 Gerd Gerd Problem 03/06/2016 GUDELIA 12:00:00 AM ([facility]) 530.9 Gerd Gerd Problem 03/06/2016 GUDELIA 12:00:00 AM ([facility]) 530.9 Gerd Gerd Problem 03/06/2016 GUDELIA 12:00:00 AM ([facility]) [id number] Cystic disease of Renal Cyst Problem 05/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 [place] kidney (disorder) 12:00:00 AM ([facility]) 213059127 Cystic disease of Renal Cyst Problem 05/16/2015 [place] kidney (disorder) 12:00:00 AM ([facility]) 350989653 Cystic disease of Renal Cyst Problem 05/16/2015 [place] kidney (disorder) 12:00:00 AM ([facility]) 296064203 Cystic disease of Renal Cyst Problem 05/16/2015 [place] kidney (disorder) 12:00:00 AM ([facility]) 849975079 Cystic disease of Renal Cyst Problem 05/16/2015 [place] kidney (disorder) 12:00:00 AM ([facility]) 139941603 Cystic disease of Renal Cyst Problem 05/16/2015 [place] kidney (disorder) 12:00:00 AM ([facility]) 298235455 Cystic disease of Renal Cyst Problem 05/16/2015 [place] kidney (disorder) 12:00:00 AM ([facility]) 063329834 Cystic disease of Renal Cyst Problem 05/16/2015 [place] kidney (disorder) 12:00:00 AM ([facility]) 552004020 Cystic disease of Renal Cyst Problem 05/16/2015 [place] kidney (disorder) 12:00:00 AM ([facility]) 088147835 Cystic disease of Renal Cyst Problem 05/16/2015 [place] kidney (disorder) 12:00:00 AM ([facility]) 131807669 Cystic disease of Renal Cyst Problem 05/16/2015 [place] kidney (disorder) 12:00:00 AM ([facility]) 121926590 Cystic disease of Renal Cyst Problem 05/16/2015 [place] kidney (disorder) 12:00:00 AM ([facility]) 185313774 Cystic disease of Renal Cyst Problem 05/16/2015 [place] kidney (disorder) 12:00:00 AM ([facility]) 056597924 Atypical chest pain Atypical Chest Pain Finding 012 GUDELIA (finding) 12:00:00 AM ([facility] 11/16/2013 [facility]) 12:00:00 AM EDT [id number] Atypical chest pain Atypical Chest Pain Finding 012 GUDELIA (finding) 12:00:00 AM ([facility] 11/16/2013 [facility]) 12:00:00 AM EDT [id number] Atypical chest pain Atypical Chest Pain Finding 012 GUDELIA (finding) 12:00:00 AM ([facility] 11/16/2013 [facility]) 12:00:00 AM EDT [id number] Atypical chest pain Atypical Chest Pain Finding 012 GUDELIA (finding) 12:00:00 AM ([facility] 11/16/2013 [facility]) 12:00:00 AM EDT [id number] Atypical chest pain Atypical Chest Pain Finding 012 GUDELIA (finding) 12:00:00 AM ([facility] 11/16/2013 [facility]) 12:00:00 AM EDT [id number] Atypical chest pain Atypical Chest Pain Finding 012 GUDELIA (finding) 12:00:00 AM ([facility] 11/16/2013 [facility]) 12:00:00 AM EDT [id number] Atypical chest pain Atypical Chest Pain Finding 012 GUDELIA (finding) 12:00:00 AM ([facility] 11/16/2013 [facility]) 12:00:00 AM EDT [id number] Atypical chest pain Atypical Chest Pain Finding 012 GUDELIA (finding) 12:00:00 AM ([facility] 11/16/2013 [facility]) 12:00:00 AM EDT [id number] Atypical chest pain Atypical Chest Pain Finding 012 GUDELIA (finding) 12:00:00 AM ([facility] 11/16/2013 [facility]) 12:00:00 AM EDT [id number] Atypical chest pain Atypical Chest Pain Finding 012 GUDELIA (finding) 12:00:00 AM ([facility] 11/16/2013 [facility]) 12:00:00 AM EDT [id number] Atypical chest pain Atypical Chest Pain Finding 012 GUDELIA (finding) 12:00:00 AM ([facility] 11/16/2013 [facility]) 12:00:00 AM EDT [id number] Atypical chest pain Atypical Chest Pain Finding 012 GUDELIA (finding) 12:00:00 AM ([facility] 11/16/2013 [facility]) 12:00:00 AM EDT [id number] Atypical chest pain Atypical Chest Pain Finding 012 GUDELIA (finding) 12:00:00 AM ([facility] 11/16/2013 [facility]) 12:00:00 AM EDT [id number] Benign essential Essential Problem 11/04/2011 GUDEL[place] hypertension Hypertension Benign 12:00:00 AM (Ayla benznt David (disorder) [facility]) 37261680 Upper abdominal Abdominal Pain Upper Finding 11/04/2011 GUDELIA pain (finding) 12:00:00 AM ([facility]) 9655858 Benign essential Essential Problem 11/04/2011 GUDELIA hypertension Hypertension Benign 12:00:00 AM (Ayla tuyetnt David (disorder) [facility]) 96828612 Upper abdominal Abdominal Pain Upper Finding 11/04/2011 GUDELIA pain (finding) 12:00:00 AM ([facility]) 7745422 Benign essential Essential Problem 11/04/2011 GUDEL[place] hypertension Hypertension Benign 12:00:00 AM (Ayla benznt David (disorder) [facility]) 35172510 Upper abdominal Abdominal Pain Upper Finding 11/04/2011 GUDELIA pain (finding) 12:00:00 AM ([facility]) 0138990 Benign essential Essential Problem 11/04/2011 GUDELIA hypertension Hypertension Benign 12:00:00 AM (Ayla tuyetnt David (disorder) [facility]) [id number] Upper abdominal Abdominal Pain Upper Finding 11/04/2011 GUDELIA pain (finding) 12:00:00 AM ([facility]) 5260124 Benign essential Essential Problem 11/04/2011 GUDEL[place] hypertension Hypertension Benign 12:00:00 AM (Ayla tuyetnt David (disorder) [facility]) 59839029 Upper abdominal Abdominal Pain Upper Finding 11/04/2011 GUDELIA pain (finding) 12:00:00 AM ([facility]) 6274392 Benign essential Essential Problem 11/04/2011 GUDEL[place] hypertension Hypertension Benign 12:00:00 AM (Ayla tuyetnt David (disorder) [facility]) 42646123 Upper abdominal Abdominal Pain Upper Finding 11/04/2011 GUDELIA pain (finding) 12:00:00 AM ([facility]) 2781478 Benign essential Essential Problem 11/04/2011 GUDEL[place] hypertension Hypertension Benign 12:00:00 AM (Ayla tuyetnt David (disorder) [facility]) 87988332 Upper abdominal Abdominal Pain Upper Finding 11/04/2011 GUDELIA pain (finding) 12:00:00 AM ([facility]) 5277064 Benign essential Essential Problem 11/04/2011 GUDEL[place] hypertension Hypertension Benign 12:00:00 AM (Ayla benznt David (disorder) [facility]) 67248170 Upper abdominal Abdominal Pain Upper Finding 11/04/2011 GUDELIA pain (finding) 12:00:00 AM ([facility]) 0736733 Benign essential Essential Problem 11/04/2011 GUDEL[place] hypertension Hypertension Benign 12:00:00 AM (Ayla benznt David (disorder) [facility]) 97401406 Upper abdominal Abdominal Pain Upper Finding 11/04/2011 GU[place] pain (finding) 12:00:00 AM [facility] [facility]) [id number] Benign essential Essential Problem 11/04/2011 [place] hypertension Hypertension Benign 12:00:00 AM (Ayla benznt David (disorder) [facility]) [id number] Upper abdominal Abdominal Pain Upper Finding 11/04/2011 GUDELIA pain (finding) 12:00:00 AM ([facility]) [id number] Benign essential Essential Problem 11/04/2011 GUDEL[place] hypertension Hypertension Benign 12:00:00 AM (Ayla benznt David (disorder) [facility]) [id number] Upper abdominal Abdominal Pain Upper Finding 11/04/2011 GUDELIA pain (finding) 12:00:00 AM ([facility]) [id number] Benign essential Essential Problem 11/04/2011 GUDELIA hypertension Hypertension Benign 12:00:00 AM (Ayla ount David (disorder) [facility]) [id number] Upper abdominal Abdominal Pain Upper Finding 11/04/2011 GUDELIA pain (finding) 12:00:00 AM ([facility]) [id number] Benign essential Essential Problem 11/04/2011 GUDEL[place] hypertension Hypertension Benign 12:00:00 AM (Ayla benznt David (disorder) [facility]) [id number] Upper abdominal Abdominal Pain Upper Finding 11/04/2011 GUDELIA pain (finding) 12:00:00 AM ([facility]) K02.9 Dental caries, DENTAL CARIES, Diagnosis 05/10/2019 [place] unspecified UNSPECIFIED 10:01:00 AM [facility] [employer] Z13.84 Encounter for ENCOUNTER FOR Diagnosis 05/10/2019 [facility] screening for SCREENING FOR DENTAL 09:34:00 AM [facility] dental disorders DISORDERS EST [employer] I10 Essential (primary) ESSENTIAL (PRIMARY) Diagnosis 019 [place] hypertension HYPERTENSION 01:29:00 PM [facility] EDT [facility] K08.89 Other specified OTHER SPECIFIED Diagnosis 04/09/2019 [place] disorders of teeth DISORDERS OF TEETH 01:29:00 PM [facility] and supporting AND SUPPORTING EDT Care structures STRUCTURES [employer] Z12.5 Encounter for Encounter for Diagnosis 08/17/2018 [place] screening for screening for 07:31:42 PM ([place] malignant neoplasm malignant neoplasm EST Neighborhood prostate ) Z11.4 Encounter for Encounter for Diagnosis 08/17/2018 [place] screening for human screening for human 07:31:4 2 PM ([place] immunodeficiency immunodeficiency EST [facility] virus [HIV] virus [facility] ) Z11.3 Encounter for Encntr screen for Diagnosis 08/17/2018 [place] NW[place] screening for infections w sexl 07:31:42 PM (Mo unt David infections with a mode of transmiss [facility]) sexual mode of transmission Z00.00 Encounter for Encntr for general Diagnosis 08/17/2018 [facility] general adult adult medical exam 07:31:42 PM (M ount David medical examination w/o abnormal [facility]) findings Surgeries/Procedures Procedure Description Date Indications Data Source(s) BLOOD OCCULT BY FECAL BLOOD OCCULT BY FECAL 12/14/2019 [place] ([facility] HEMOGLOBIN HEMOGLOBIN 12:00:00 [facility]) HELICOBACTER PYLORI HELICOBACTER PYLORI 12/14/2019 G REENWAY ([place] 12:00:00 [facility]) HEPATITIS C ANTIBODY HEPATITIS C ANTIBODY 12/14/2019 [place] ([facility] 12:00:00 [facility]) TSH-THYROID STIMULATING TSH-THYROID 12/14/2019 GREE NWAY ([place] STIMULATING 12:00:00 [facility]) METABOLIC PANEL METABOLIC PANEL 12/14/2019 [place] ([facility] LIPID PANEL LIPID PANEL 12/14/2019 [place] ([facility] 12:00:00 [facility]) HEMOGLOBIN A1C HEMOGLOBIN A1C 12/14/2019 [place] ([facility] 12:00:00 [facility]) FMO-ICHL-MHTJXYTV WVF-XHNL-YUUSMHGE 12/14/2019 [facility] ([facility] 12:00:00 [facility]) URINALYSIS URINALYSIS 12/14/2019 [place] ([facility] 12:00:00 [facility]) Federally qualified FQHC Visit Established 05/03/2019 [place] ([facility] (fqhc) Patient 12:00:00 David visit, established AM EST Colleen ood patient; [facility]) medically-necessary, mwfr-dj-redl encounter (one-on-one) between an established patient and a fqhc practitioner during which time one or more fqhc services are rendered and includes a typical bundle of medicare-covered services that would be furnished rotogravure press operator to a patient receiving a fqhc visit Federally qualified FQHC Visit Established 04/22/2019 [place] ([facility] (fqhc) Patient 12:00:00 David visit, established AM EST Neighborh ood patient; [facility]) medically-necessary, fbrs-lp-npyt encounter (one-on-one) between an established patient and a fqhc practitioner during which time one or more fqhc services are rendered and includes a typical bundle of medicare-covered services that would be furnished rotogravure press operator to a patient receiving a fqhc visit Federally qualified FQHC Visit Established 04/08/2019 [place] ([facility] (fqhc) Patient 12:00:00 David visit, established AM EDT [place] ood patient; [facility]) medically-necessary, ofds-kz-bgjc encounter (one-on-one) between an established patient and a fqhc practitioner during which time one or more fqhc services are rendered and includes a typical bundle of medicare-covered services that would be furnished rotogravure press operator to a patient receiving a fqhc visit HEMOGLOBIN A1C HEMOGLOBIN A1C 04/08/2019 [place] ([facility] 12:00:00 [facility]) LIPID PANEL LIPID PANEL 04/08/2019 [place] ([facility] 12:00:00 [facility]) METABOLIC PANEL METABOLIC PANEL 04/08/2019 [place] ([facility] COMPREHE COMPREHE 12:00:00 [facility]) Federally qualified FQHC Visit Established 12/13/2018 [place] ([facility] (fqhc) Patient 12:00:00 David visit, established AM EDT Neighbor ood patient; [facility]) medically-necessary, wdfd-jv-ibwj encounter (one-on-one) between an established patient and a fqhc practitioner during which time one or more fqhc services are rendered and includes a typical bundle of medicare-covered services that would be furnished rotogravure press operator to a patient receiving a fqhc visit METABOLIC PANEL METABOLIC PANEL 11/22/2018 [place] ([facility] COMPREHE COMPREHE 12:00:00 [facility]) LIPID PANEL LIPID PANEL 11/22/2018 [place] ([facility] 12:00:00 [facility]) Federally qualified FQHC Visit Established 11/22/2018 [place] ([facility] ([facility]) Patient 12:00:00 David visit, established AM [facility]T [facility]) medically-necessary, ftqm-ae-zyhq encounter (one-on-one) between an established patient and a fqhc practitioner during which time one or more fqhc services are rendered and includes a typical bundle of medicare-covered services that would be furnished rotogravure press operator to a patient receiving a fqhc visit HEMOGLOBIN A1C HEMOGLOBIN A1C 11/22/2018 [place] ([facility] 12:00:00 [facility]) No history of surgery No history of surgery 09/30/2018 [place] ([facility] 12:00:00 [facility]) Screening for clinical SCREENING FOR CLINICAL 09/30/2018 [place] ([facility] depression is DEPRESSION DOCUMENTED 12:00:00 Verno n documented as negative, NEGATIVE NO F/U AM EDT N eighborhood a follow-up plan is not [facility]) required Federally qualified FQHC Visit Established 09/30/2018 [place] ([facility] (fqhc) Patient 12:00:00 David visit, established AM EDT Neighbor ood patient; [facility]) medically-necessary, rgvw-lk-ijct encounter (one-on-one) between an established patient and a fqhc practitioner during which time one or more fqhc services are rendered and includes a typical bundle of medicare-covered services that would be furnished rotogravure press operator to a patient receiving a fqhc visit Tobacco assessment or Tobacco Assessment 08/25/2018 [place] ([facility] tobacco cessation 12:00:00 David intervention not AM EDT Paolahoo d performed, reason not Health Center) otherwise specified Federally qualified FQHC Visit Established 08/25/2018 [place] ([facility] (fqhc) Patient 12:00:00 David visit, established AM EDT Neighbor[place] ood patient; [facility]) medically-necessary, dtvz-kq-xtfe encounter (one-on-one) between an established patient and a fqhc practitioner during which time one or more fqhc services are rendered and includes a typical bundle of medicare-covered services that would be furnished rotogravure press operator to a patient receiving a fqhc visit Federally qualified FQHC Visit Established 07/09/2018 [place] ([facility] (fqhc) Patient 12:00:00 David visit, established AM EST Neighborh ood patient; [facility]) medically-necessary, zntd-uy-qsra encounter (one-on-one) between an established patient and a fqhc practitioner during which time one or more fqhc services are rendered and includes a typical bundle of medicare-covered services that would be furnished rotogravure press operator to a patient receiving a fqhc visit LIPID PANEL LIPID PANEL 06/23/2018 [place] ([facility] 12:00:00 [facility]) METABOLIC PANEL METABOLIC PANEL 06/23/2018 [place] ([facility] COMPREHE COMPREHE 12:00:00 [facility]) HEMOGLOBIN A1C HEMOGLOBIN A1C 06/23/2018 [place] ([facility] 12:00:00 [facility]) Federally qualified FQHC Visit Established 06/23/2018 [place] ([facility] (fqhc) Patient 12:00:00 David visit, established AM EST Neighborh ood patient; [facility]) medically-necessary, guml-mk-tbji encounter (one-on-one) between an established patient and a fqhc practitioner during which time one or more fqhc services are rendered and includes a typical bundle of medicare-covered services that would be furnished rotogravure press operator to a patient receiving a fqhc visit URINALYSIS URINALYSIS 06/23/2018 [place] ([facility] 12:00:00 [facility]) TER-NSUL-ZOHCEUPC HRY-IPRW-[id number] 06/23/2018 JAKOB WEINBERG ([facility] 12:00:00 [facility]) TSH-THYROID STIMULATING TSH-THYROID 06/23/2018 CONOR ANGLIN ([facility] STIMULATING 12:00:00 [facility]) Federally qualified FQHC Visit Established 09/04/2017 [place] ([facility] (fqhc) Patient 12:00:00 David visit, established EDT [facility] ood patient; a [facility] Center) medically-necessary, qnke-vh-rruv encounter (one-on-one) between an established patient and a fq practitioner during which time one or more [facility] services are rendered and includes a typical bundle of medicare-covered services that would be furnished rotogravure press operator to a patient receiving a [facility] visit Resources Provided on Resources Provided on 04/23/2017 [place] ([facility] End of not Life End of not Life 12:00:00 David Decisions Decisions [facility]) Not under care of Not under care of 04/23/2017 JAKOB WEINBERG ([facility] mental health counselor mental health 12:00:00 [facility] non counselor [facility]) Not seen in mental Not seen in mental 04/23/2017 KIM ENGLE ([facility] clinic health clinic 12:00:00 [facility]) No recent examination No recent examination 04/23/2017 U[place] ([facility] by a plasma processing technician by a plasma processing technician 12:00:00 [facility]) No previous No previous 04/23/2017 [place] ([facility] hospitalizations Date hospitalizations Date 12:00:00 David of Most Recent of Most Recent [facility] Hospitalization and Hospitalization and [facility]) Reason Reason No past medical history No past medical 04/23/2017 Adrianna MCPHERSON ([facility] reported history reported 12:00:00 [facility]) No Hospitalizations No Hospitalizations 04/23/2017 Adrianna MCPHERSON ([facility] Last Year Last Year 12:00:00 [facility]) Medical orders for Medical orders for 04/23/2017 KIM ENGLE ([facility] life-sustaining life-sustaining 12:00:00 David treatment not on file treatment not on file [facility]) Health care proxy not Health care proxy not 04/23/2017 [place] ([facility] on file Stated his on file Stated his 12:00:00 V ernon Karin or Karin or AM EST Neigh borhood daughter would be his daughter would be his Health Center) proxy proxy Discussed End of not Discussed End of not 04/23/2017 [place] ([facility] Life with Proxy Life with Proxy 12:00:00 [facility]) History of Eyes: normal History of Eyes: 09/01/2016 [place] ([facility] normal 12:00:00 [facility]) No recent change in No recent change in 03/06/2016 Adrianna MCPHERSON ([facility] medical history medical history 12:00:00 [facility]) No history of type 2 No history of type 2 08/28/2015 [place] ([facility] diabetes mellitus diabetes mellitus 12:00:00 [facility]) No history of No history of 08/28/2015 [place] ([facility] nt hyperlipidemia hyperlipidemia 12:00:00 [facility]) No history of HIV No history of HIV 08/28/2015 [facility] ([facility] infection infection 12:00:00 [facility]) No history of essential No history of 08/28/2015 [facility] hypertension essential hypertension 12:00:00 [facility]) No history of coronary No history of coronary 08/28/2015 [place] ([facility] artery disease artery disease 12:00:00 [facility]) no surgery no surgery 08/28/2015 [place] ([facility] 12:00:00 [facility]) Advance healthcare Advance healthcare 08/06/2015 [facility] directive not on file directive not on file 12:00:00 [facility]) No history of migraine No history of migraine 05/16/2015 [place] ([facility] headache headache 12:00:00 [facility]) No heavy OTC analgesic No heavy OTC analgesic 05/16/2015 [place] ([facility] use use 12:00:00 [facility]) History of benign History of benign 05/16/2015 [facility] ([facility] essential hypertension essential hypertension 12:00:00 [facility]) Results ID Date Data Source [id number] 02/23/2020 08:39:00 AM EDT [facility] Name Value Range Interpretation Description Data Sup porting Code Source(s) Document(s ) SARS [facility] coronavirus 2 RNA This lab was ordered by [facility] and reported by [facility]. ID Date Data Source [id number] 12/26/2019 10:30:00 AM EDT [facility] Name Value Range Interpretation Description Data Sup porting Code Source(s) Document(s ) SARS [facility] coronavirus 2 RNA This lab was ordered by [facility] and reported by [facility]. ID Date Data Source [id number] 12/14/2019 12:49:00 PM EDT [place] (Breana nt [facility]) Name Value Range Interpretation Description Data Source(s ) Supporting Code Document(s ) SARS-CoV Not SARS-CoV-2, [place] ([place] -2, DANA Detected DANA [facility]) Note: This test was developed and its pe rformance characteristics determinedby [employer]. This test has not been FDA cleared orapproved. This test has been authorized by FDA under an Emergenc y UseAuthorization (EUA). This test is only authorized for the duration oftime the d eclaration that circumstances exist justifying theauthorization of the emerg ency use of in vitro diagnostic tests fordetection of SARS-CoV-2 virus and/or diagnosis of COVID-19 infectionunder section 564(b)(1) of the Act, 21 U.S.C. 360bbb-3 (b)(1), unlessthe authorization is terminated or revoked sooner.When diagnostic testin g is negative, the possibility of a falsenegative result should be considere d in the context of a patient'srecent exposures and the presence of clinical s igns and symptomsconsistent with COVID- 19. An individual without symptoms of COVID-19a nd who is not shedding SARS-CoV-2 virus would expect to have anegative (not detected) result in this assay. ID Date Data Source [id number] 12/14/2019 12:49:00 PM EDT [facility] Name Value Range Interpretation Description Data Sup porting Code Source(s) Document(s ) SARS [facility] CORONAVIRUS 2 RNA This lab was ordered by RENEA Hooker [employer] [facility] and reported by [facility]. ID Date Data Source [id number] 12/14/2019 12:01:00 PM EDT [place] ([facility]) Name Value Range Interpretation Description Data Source(s ) Supporting Code Document(s ) SARS-CoV Negative SARS-CoV-2 [place] ([place] -2 Antibody, IgG David Antibody [facility]) Note: This sample does not contain detec table SARS-CoV-2 IgG antibodies.This negative result does not rule out SARS-CoV-2 infe ction.Correlation with epidemiologic risk factors and other clinical andlaboratory findings is recommended. Serologic results should not beused as the sole basis to d iagnose or exclude recent [id number].This assay was perfo rmed using the Cruz SARS-CoV-2 IgG assay. ID Date Data Source [id number] 12/14/2019 12:01:00 PM EDT [place] ([facility]) Name Value Range Interpretation Description Data Source(s ) Supporting Code Document(s ) Helicobacter 10.9 Above high H. pylori, [place] pylori IgA Ab units normal IgA Abs ([place] [Units/volume] [facility] in [facility]) Note: Negative <9.0 Equi vocal 9.0 - 11.0 Positive >11. 0 ID Date Data Source [id number] 12/14/2019 12:01:00 PM EDT [place] ([facility]) Name Value Range Interpretation Description Data Source(s ) Supporting Code Document(s ) Hepatitis C 0.1 Hep C Virus [place] virus Ab s/co_rat Ab ([place] Signal/Cutoff io Neighborhood in Serum or Health Center) Plasma by Immunoassay Note: Negative: < 0.8 Indeterm inate: 0.8 - 0.9 Positive: > 0.9 The CDC recommends that a positive HCV antibody result be followed up with a HCV Nucleic Acid Amplification test (43706 3). ID Date Data Source [id number] 12/14/2019 12:01:00 PM EDT [place] ([facility]) Name Value Range Interpretation Description Data Source(s ) Supporting Code Document(s ) HIV 1+2 Non HIV Screen [place] Ab+HIV1 p24 Reactive 4th ([place] Ag [Presence] Generation Neighborhood in Serum or [facility]) Plasma by Immunoassay ID Date Data Source [id number] 12/14/2019 12:01:00 PM EDT [place] ([facility]) Name Value Range Interpretation Description Data Source(s ) Supporting Code Document(s ) Prostate 1.5 Prostate [place] ([place] specific Ag ng/mL Specific Ag, David [Mass/volum Serum Neighborhood e] in [facility]) or Plasma Note: Gigi ECLIA methodology.According to the [place] [employer], Serum PSA shoulddecrease and remain at undetec table levels after radicalprostatectomy. The AUA defines biochemical recurrence as an initialPSA value 0.2 ng/mL or greater followed by a subsequent confirmatoryPSA value 0.2 ng/mL or greater.Values obtained with different assay methods or kits can not be usedinterchangeably. Results cannot be interpreted as absolute evidenceof the p resence or absence of malignant disease. ID Date Data Source [id number] 12/14/2019 12:01:00 PM EDT [place] ([facility]) Name Value Range Interpretation Description Data Source(s ) Supporting Code Document(s ) Thyrotropin 1.240 TSH [place] ([place] [Units/volume] uIU/mL David in Serum or Neighborhood Plasma by [facility]) Detection limit <= 0.05 mIU/L ID Date Data Source [id number] 12/14/2019 12:01:00 PM EDT [place] ([facility]) Name Value Range Interpretation Description Data Source(s ) Supporting Code Document(s ) Hemoglobin 5.6 % Hemoglobin A1c [place] (Moun t A1c/Hemoglobi David n.total in [facility] Blood [facility]) Note: Prediabetes: 5.7 - 6.4 Diabetes: >6.4 Glycemic control for adults with diabetes: <7.0 ID Date Data Source [id number] 12/14/2019 12:01:00 PM EDT [place] ([facility]) Name Value Range Interpretation Description Data Source(s ) Supporting Code Document(s ) Chlamydia Negative Chlamydia [place] trachomatis trachomatis, ([place] rRNA [Presence] DANA [facility] specimen by Probe and target amplification method Neisseria Negative Neisseria [place] gonorrhoeae gonorrhoeae, ([place] rRNA [Presence] DANA [facility] in Unspecified Health Center) specimen by Probe and target amplification method ID Date Data Source [id number] 12/14/2019 12:01:00 PM EDT [place] ([facility]) Name Value Range Interpretation Description Data Source(s ) Supporting Code Document(s ) Cholesterol 159 Cholesterol, [place] [Mass/volume] mg/dL Total ([place] in Serum or [facility] Plasma [facility]) Triglyceride 62 Triglycerides GU[place] [Mass/volume] mg/dL ([place] in Serum or [facility]) Cholesterol in 59 HDL Cholesterol GU[place]IA HDL mg/dL ([place] [Mass/volume] [facility] in [facility] or [facility]) Plasma Cholesterol in 12 VLDL [place] VLDL mg/dL Cholesterol Berny ([place] [Mass/volume] [facility] in Serum or [facility]) Plasma by calculation Cholesterol in 88 LDL Cholesterol GU[place]IA LDL mg/dL Calc ([place] [Mass/volume] [facility] in [facility] or [facility]) Plasma by calculation Laboratory N/A Comment: GU[place]IA comment [Text] ([place] in [facility]) ID Date Data Source [id number] 12/14/2019 12:01:00 PM EDT [place] ([facility]) Name Value Range Interpretation Description Data Sup porting Code Source(s) Document(s ) Glucose 82 Glucose [place] [Mass/volume] in mg/dL ([facility] or [facility]) Calcium 10.0 Calcium [place] [Mass/volume] in mg/dL ([facility]) Urea nitrogen 13 BUN GUDELIA [Mass/volume] in mg/dL ([facility] or [facility]) Protein 7.6 Protein, GUDELIA [Mass/volume] in g/dL Total ([facility] or [facility]) Bilirubin.total 0.7 Bilirubin, GUDELIA [Mass/volume] in mg/dL Total ([facility] or [facility]) Albumin 5.0 Above high Albumin GUDELIA [Mass/volume] in g/dL normal ([facility]) Aspartate 22 IU/L AST (SGOT) GUDELIA aminotransferase ([place] [Enzymatic Neighborhood activity/volume] Health in Serum or Plasma Center) Alkaline 66 IU/L Alkaline GUDELIA phosphatase Phosphatase ([place] [Enzymatic Neighborhood activity/volume] [facility] in Serum or Plasma [place]) Potassium 4.4 Potassium GUDELIA [Moles/volume] in mmol/L ([facility] Serum or Plasma [facility]) Chloride 95 Below low normal Chloride GUDELIA [Moles/volume] in mmol/L ([facility] Serum or [facility]) Sodium 136 Sodium GUDELIA [Moles/volume] in mmol/L ([facility] Serum or [facility]) Alanine 19 IU/L ALT (SGPT) GUDELIA aminotransferase ([place] [Enzymatic Neighborhood activity/volume] Health in Serum or Plasma [place]) Creatinine 1.07 Creatinine GUDELIA [Mass/volume] in mg/dL ([place] Serum or Plasma [facility]) Carbon dioxide, 21 Carbon GUDELIA total mmol/L Dioxide, ([place] [Moles/volume] in Total [facility] Serum [facility]) Globulin 2.6 Globulin, GUDELIA [Mass/volume] in g/dL Total ([place] Serum by [facility]) Urea 12 BUN/Creatinin GUDELIA nitrogen/Creatinin e Ratio ([facility] on e [Mass Ratio] in [facility] Serum or [facility]) Albumin/Globulin 1.9 A/G Ratio GUDELIA [Mass Ratio] in ([place] Serum or [facility]) eGFR If Africn Am 79 eGFR If GUDELIA mL/min/ Africn Am ([address]) eGFR If NonAfricn 68 eGFR If GUDELIA Am mL/min/ NonAfricn Am ([address]) ID Date Data Source [id number] 04/08/2019 11:24:00 AM EDT [place] ([facility]) Name Value Range Interpretation Description Data Source(s ) Supporting Code Document(s ) Hemoglobin 5.5 % Hemoglobin A1c [place] (Txun t A1c/Hemoglobi [facility] n.total in [facility]) Note: Prediabetes: 5.7 - 6.4 Diabetes: >6.4 Glycemic control for adults with diabetes: <7.0 ID Date Data Source [id number] 04/08/2019 11:24:00 AM EDT [place] ([facility]) Name Value Range Interpretation Description Data Source(s ) Supporting Code Document(s ) Triglyceride 57 Triglycerides GUDELIA [Mass/volume] mg/dL ([place] in Serum or [facility]) Cholesterol 171 Cholesterol, GUDELIA [Mass/volume] mg/dL Total ([place] in Serum or [facility] Plasma [facility]) Cholesterol in 55 HDL Cholesterol GUDELIA HDL mg/dL ([place] [Mass/volume] [facility] in Serum or [facility]) Plasma Laboratory N/A Comment: GUDELIA comment [Text] ([place] in Report [facility]) Cholesterol in 11 VLDL GUDELIA VLDL mg/dL Cholesterol Berny ([place] [Mass/volume] [facility] in Serum or [facility]) Plasma by calculation Cholesterol in 105 Above high LDL Cholesterol GUDELIA LDL mg/dL normal Calc ([place] [Mass/volume] [facility] in Serum or [facility]) Plasma by calculation ID Date Data Source [id number] 04/08/2019 11:24:00 AM EDT [place] ([facility]) Name Value Range Interpretation Description Data Sup porting Code Source(s) Document(s ) Calcium 9.6 Calcium GUDELIA [Mass/volume] in mg/dL ([place] Serum or [facility]) Glucose 75 Glucose GUDELIA [Mass/volume] in mg/dL ([place] Serum or [facility]) Protein 7.2 Protein, GUDELIA [Mass/volume] in g/dL Total ([facility] or [facility]) Urea nitrogen 20 BUN GUDELIA [Mass/volume] in mg/dL ([facility]) Albumin 4.7 Albumin GUDELIA [Mass/volume] in g/dL ([facility]) Bilirubin.total 0.6 Bilirubin, GUDELIA [Mass/volume] in mg/dL Total ([place] Serum or [facility]) Alkaline 56 IU/L Alkaline GU[place]IA phosphatase Phosphatase ([place] [Enzymatic Neighborhood activity/volume] [facility] in Serum or Plasma [place]) Chloride 98 Chloride GUDELIA [Moles/volume] in mmol/L ([facility] Serum or [facility]) Aspartate 19 IU/L AST (SGOT) GUDELIA aminotransferase ([place] [Enzymatic [facility] activity/volume] [facility] in Serum or Plasma [place]) Sodium 140 Sodium GUDELIA [Moles/volume] in mmol/L ([facility] Serum [facility]) Potassium 3.8 Potassium GUDELIA [Moles/volume] in mmol/L ([facility]) Alanine 15 IU/L ALT (SGPT) [place] aminotransferase ([place] [Enzymatic [facility] activity/volume] Health in Serum or Plasma Center) Creatinine 1.12 Creatinine GUDELIA [Mass/volume] in mg/dL ([place] Serum or Plasma [facility]) Carbon dioxide, 23 Carbon GUDELIA total mmol/L Dioxide, ([place] [Moles/volume] in Total [facility] Serum or Plasma [facility]) Urea 18 BUN/Creatinin GU[place]IA nitrogen/Creatinin e Ratio ([facility] on e [Mass Ratio] in [facility] Serum or Plasma [facility]) Globulin 2.5 Globulin, [place] [Mass/volume] in g/dL Total ([place] Serum by [facility]) Albumin/Globulin 1.9 A/G Ratio [place] [Mass Ratio] in ([place] Serum or Plasma [facility]) eGFR If Africn Am 75 eGFR If GUDELIA mL/min/ Africn Am ([address]) eGFR If NonAfricn 65 eGFR If [place] Am mL/min/ NonAfricn Am ([address]) ID Date Data Source [id number] 11/23/2018 09:34:00 AM EDT [place] ([facility]) Name Value Range Interpretation Description Data Source(s ) Supporting Code Document(s ) Hemoglobin 5.8 % Above high normal Hemoglobin A1c JAKOB AY ([facility] A1c/Hemoglobi [facility] n.total in [facility]) Note: Prediabetes: 5.7 - 6.4 Diabetes: >6.4 Glycemic control for adults with diabetes: <7.0 ID Date Data Source [id number] 11/23/2018 09:34:00 AM EDT [place] ([facility]) Name Value Range Interpretation Description Data Source(s ) Supporting Code Document(s ) Cholesterol 168 Cholesterol, GUDELIA [Mass/volume] mg/dL Total ([place] in Serum or [facility] Plasma Health [place]) Cholesterol in 97 LDL Cholesterol GU[place]IA LDL mg/dL Calc ([place] [Mass/volume] [facility] in Serum or Health Center) Plasma by calculation Laboratory N/A Comment: GUDELIA comment [Text] (Blade Hernandez in Report [facility]) Cholesterol in 17 VLDL [place] VLDL mg/dL Cholesterol Berny ([place] [Mass/volume] [facility] in Serum or [facility]) Plasma by calculation Cholesterol in 54 HDL Cholesterol GUDELIA HDL mg/dL ([place] [Mass/volume] [facility] in Serum or [facility]) Plasma Triglyceride 83 Triglycerides GUDELIA [Mass/volume] mg/dL ([place] in [facility] or [facility]) ID Date Data Source [id number] 11/23/2018 09:34:00 AM EDT [place] ([facility]) Name Value Range Interpretation Description Data Sup porting Code Source(s) Document(s ) Urea nitrogen 26 BUN [place] [Mass/volume] in mg/dL ([facility] or [facility]) Calcium 9.7 Calcium GU[place]IA [Mass/volume] in mg/dL ([facility]) Glucose 79 Glucose GU[place] [Mass/volume] in mg/dL ([facility]) Alkaline 57 IU/L Alkaline [place] phosphatase Phosphatase ([place] [Enzymatic [facility] activity/volume] [facility] in Serum or Plasma [place]) Protein 7.3 Protein, GU[place]IA [Mass/volume] in g/dL Total ([facility]) Bilirubin.total 0.4 Bilirubin, GU[place]IA [Mass/volume] in mg/dL Total ([facility] or [facility]) Aspartate 21 IU/L AST (SGOT) GU[place]IA aminotransferase ([place] [Enzymatic Neighborhood activity/volume] [facility] in Serum or Plasma [place]) Albumin 4.5 Albumin GU[place]IA [Mass/volume] in g/dL ([facility]) Alanine 21 IU/L ALT (SGPT) [place] aminotransferase ([place] [Enzymatic Neighborhood activity/volume] [facility] in Serum or Plasma [place]) Potassium 4.3 Potassium GU[place]IA [Moles/volume] in mmol/L ([facility] or [facility]) Creatinine 1.25 Creatinine GU[place] [Mass/volume] in mg/dL ([facility]) Chloride 99 Chloride GUDELIA [Moles/volume] in mmol/L ([facility]) Sodium 140 Sodium GUDELIA [Moles/volume] in mmol/L ([facility]) Carbon dioxide, 25 Carbon GUDELIA total mmol/L Dioxide, ([place] [Moles/volume] in Total Neighborhood Serum or [facility]) Urea 21 BUN/Creatinin [place] nitrogen/Creatinin e Ratio ([facility] on e [Mass Ratio] in [facility] Serum or Plasma [facility]) Globulin 2.8 Globulin, [place] [Mass/volume] in g/dL Total ([place] Serum by [facility]) eGFR If NonAfricn 57 Below low normal eGFR If [address] Am mL/min/ NonAfricn Am ([address]) Albumin/Globulin 1.6 A/G Ratio GUDELIA [Mass Ratio] in ([place] Serum or Plasma [facility]) eGFR If Africn Am 66 eGFR If GUDELIA mL/min/ Africn Am ([address]) ID Date Data Source [id number] 06/23/2018 10:54:00 AM EST [place] ([facility]) Name Value Range Interpretation Description Data Source(s ) Supporting Code Document(s ) HIV 1+2 Non HIV Screen [place] Ab+HIV1 p24 Reactive 4th ([place] Ag [Presence] Generation [facility] in Serum or [facility]) Plasma by Immunoassay ID Date Data Source [id number] 06/23/2018 10:54:00 AM EST [place] ([facility]) Name Value Range Interpretation Description Data Source(s ) Supporting Code Document(s ) Prostate 1.6 Prostate [place]IA ([place] specific Ag ng/mL Specific Ag, [place] [Mass/volum Serum Neighborhood e] in [facility]) or Plasma Note: Gigi ECLIA methodology.According to the [place] [employer], Serum PSA shoulddecrease and remain at undetec table levels after radicalprostatectomy. The AUA defines biochemical recurrence as an initialPSA value 0.2 ng/mL or greater followed by a subsequent confirmatoryPSA value 0.2 ng/mL or greater.Values obtained with different assay methods or kits can not be usedinterchangeably. Results cannot be interpreted as absolute evidenceof the p resence or absence of malignant disease. ID Date Data Source [id number] 06/23/2018 10:54:00 AM EST [place] ([facility]) Name Value Range Interpretation Description Data Source(s ) Supporting Code Document(s ) Thyrotropin 1.100 TSH [place] ([place] [Units/volume] uIU/mL [place] in Serum or Neighborhood Plasma by [facility]) Detection limit <= 0.05 mIU/L ID Date Data Source [id number] 06/23/2018 10:54:00 AM EST [place] ([facility]) Name Value Range Interpretation Description Data Source(s ) Supporting Code Document(s ) Hemoglobin 5.4 % Hemoglobin A1c [place] (M[place] t A1c/Hemoglobi [place] n.total in [facility] Blood [facility]) Note: Prediabetes: 5.7 - 6.4 Diabetes: >6.4 Glycemic control for adults with diabetes: <7.0 ID Date Data Source [id number] 06/23/2018 10:54:00 AM EST [place] ([facility]) Name Value Range Interpretation Description Data Source(s ) Supporting Code Document(s ) Chlamydia Negative Chlamydia [place] trachomatis trachomatis, ([place] rRNA [Presence] DANA [facility] in [facility]) specimen by Probe and target amplification method Neisseria Negative Neisseria [place] gonorrhoeae gonorrhoeae, ([place] rRNA [Presence] DANA [facility] in [facility]) specimen by Probe and target amplification method ID Date Data Source [id number] 06/23/2018 10:54:00 AM EST [place] ([facility]) Name Value Range Interpretation Description Data Source(s ) Supporting Code Document(s ) Triglyceride 62 Triglycerides GU[place]IA [Mass/volume] mg/dL ([place] in Serum or [facility] Plasma [facility]) Cholesterol 158 Cholesterol, GU[place] [Mass/volume] mg/dL Total ([place] in Serum or [facility]) Cholesterol in 12 VLDL [place] VLDL mg/dL Cholesterol Berny ([place] [Mass/volume] [facility] in Serum or Health [place]) Plasma by calculation Laboratory N/A Comment: GUDELIA comment [Text] ([place] in Report [facility]) Cholesterol in 57 HDL Cholesterol GUDELIA HDL mg/dL ([place] [Mass/volume] [facility] in Serum or Health [place]) Plasma Cholesterol in 89 LDL Cholesterol GUDELIA LDL mg/dL Calc ([place] [Mass/volume] [facility] in Serum or Health [place]) Plasma by calculation ID Date Data Source [id number] 06/23/2018 10:54:00 AM EST [place] ([facility]) Name Value Range Interpretation Description Data Sup porting Code Source(s) Document(s ) Calcium 9.7 Calcium [place] [Mass/volume] in mg/dL ([facility] or [facility]) Glucose 89 Glucose [place] [Mass/volume] in mg/dL ([facility]) Albumin 4.7 Albumin GU[place] [Mass/volume] in g/dL ([facility]) Protein 7.6 Protein, [place] [Mass/volume] in g/dL Total ([facility] or [facility]) Urea nitrogen 14 BUN [place] [Mass/volume] in mg/dL ([facility] or [facility]) Bilirubin.total 0.5 Bilirubin, [place] [Mass/volume] in mg/dL Total ([facility] or [facility]) Alkaline 72 IU/L Alkaline [place] phosphatase Phosphatase ([place] [Enzymatic Neighborhood activity/volume] Health in Serum or [facility]) Aspartate 24 IU/L AST (SGOT) [place] aminotransferase ([place] [Enzymatic [facility] activity/volume] [facility] in Serum or [facility]) Chloride 98 Chloride GU[place]IA [Moles/volume] in mmol/L ([facility] or [facility]) Sodium 140 Sodium [place] [Moles/volume] in mmol/L ([facility] or [facility]) Potassium 4.1 Potassium [place] [Moles/volume] in mmol/L ([facility]) Creatinine 1.05 Creatinine [place] [Mass/volume] in mg/dL ([facility]) Carbon dioxide, 26 Carbon [place]IA total mmol/L Dioxide, ([place] [Moles/volume] in Total [facility] or [facility]) Alanine 22 IU/L ALT (SGPT) [place] aminotransferase ([place] [Enzymatic Neighborhood activity/volume] Health in Serum or [facility]) Urea 13 BUN/Creatinin [place] nitrogen/Creatinin e Ratio ([facility] on e [Mass Ratio] in [facility]) Globulin 2.9 Globulin, [place] [Mass/volume] in g/dL Total ([facility] by [facility]) eGFR If NonAfricn 71 eGFR If [place] Am mL/min/ NonAfricn Am ([place] 1.73 [facility]) eGFR If Africn Am 82 eGFR If [place] mL/min/ Africn Am ([place] 1.73 [facility]) Albumin/Globulin 1.6 A/G Ratio [place] [Mass Ratio] in ([place] Serum or Plasma [facility]) ID Date Data Source [id number] 06/23/2018 10:38:08 AM EST GREENWA Y ([place] [id number] [facility]) Name Value Range Interpretation Description Data Source(s ) Supporting Code Document(s ) No Results No Results No Results [place] ([facility] Recorded For [place] [facility] Specified [facility]) Procedure Social History Code Duration Value Status Description Data Source(s ) Smoking 08/28/2015 Ex-smoker (finding) completed Ex-smoker (findi ng) [place] ([facility] 11:15:58 AM [facility]) Assertion social history completed GUDELIA ( [facility] unchanged [facility]) Assertion Finding of activity completed Finding of activ ity GU[place] ([facility] of daily living of daily living [place]aden on (finding) (finding) [facility]) Assertion Physical handicap completed Physical handicap [place] ([facility] (finding) (finding) [facility]) Assertion Caffeine user completed Caffeine user [place] ([facility] (finding) (finding) [facility]) Assertion Exercise history completed Exercise history GR EELINNETTE ([facility] finding (finding) finding (finding) [facility]) Assertion Current drinker of completed Current drinker o f GUDELIA ([facility] alcohol (finding) alcohol (finding) [facility]) Assertion Smoker (finding) completed Smoker (finding) GR EENWAY ([facility]) Assertion Smokes tobacco completed Smokes tobacco GREENMonet AY ([facility] daily (finding) daily (finding) [facility]) Assertion Finding of alcohol completed Finding of alcoho l GUDELIA ([facility] intake (finding) intake (finding) Ve rnon [facility]) Assertion Sexually active completed Sexually active GREE NWAY ([facility] (finding) (finding) [facility]) Assertion sexual history completed GUDELIA ( [facility]) Assertion Single current completed Single current GREENW AY ([facility] sexual partner sexual partner [facility] (finding) (finding) [facility]) Assertion Finding of completed Finding of GUDELIA ([place] educational educational [facility] achievement achievement [facility] (finding) (finding) [facility]) Assertion Social and personal completed Social and perso nal GUDELIA ([facility] history finding history finding [place] on (finding) (finding) [facility]) Assertion Finding of language completed Finding of langu age GUDELIA ([facility] spoken (finding) spoken (finding) [facility]) Assertion Head of household completed GREENWA Y ([facility]) Assertion Occupation history completed Occupation histor y GUDELIA ([facility] (finding) (finding) [facility]) Assertion Finding relating to completed Finding relating to GUDELIA ([facility] drug misuse drug misuse [facility] behavior (finding) behavior (finding ) [facility]) Assertion Under care of completed Under care of GUDELIA ([facility] medical medical [place] [facility] software performance engineer software performance engineer Kelly rodriguez (finding) ([facility]) [facility]) Assertion Retired, life event completed Retired, life ev ent GUDELIA ([facility] (finding) (finding) [facility]) Assertion Disability completed Disability GUDELIA (Moun t (finding) (finding) [facility]) Assertion Educational Care completed GUDELIA ([facility] Plan [facility]) Assertion Tobacco user completed Tobacco user GUDELIA ( [facility] (finding) (finding) [facility]) Assertion nonnative origin, completed Y ([facility] language tutor [facility]) Assertion Difficulty completed Difficulty GUDELIA ([place] comprehending comprehending [place] language (finding) language (finding ) [facility]) Assertion Difficulty completed Difficulty GUDELIA (Moun [place] comprehending comprehending [place] language (finding) language (finding ) [facility]) Assertion Difficulty completed Difficulty GUDELIA (Moun t comprehending comprehending [place] language (finding) language (finding ) [facility]) Assertion Finding of alcohol completed Finding of alcoho l GUDELIA ([facility] intake (finding) intake (finding) [facility]) Assertion alcoholism and drug completed [address]EN [address] ([facility] addiction in family [facility]) Assertion Language finding completed Language finding GR EENWAY ([facility] (finding) (finding) [facility]) Assertion marital history completed GUDELIA ([facility]) Assertion Finding of family completed Finding of family GUDELIA ([facility] details and details and [place] [facility] household household Neighborhood composition composition Health Cente r) (finding) (finding) Assertion Medical/dental care completed Medical/dental c are GUDELIA ([facility] (regime/therapy) (regime/therapy) [facility]) Assertion Safe at Home completed GUDELIA ([facility]) Assertion Appointment date completed Appointment date GR EENWAY ([facility] (finding) (finding) [facility]) Assertion Interested in Work completed CASTRO AY ([facility]) Assertion Plan of Care completed GUDELIA ([facility]) Assertion Uses alcohol/drugs completed CASTRO MCKEON ([facility] to relax/feel [place] [facility] better about Neighborhood self/fit in Health Center ) Assertion Appointment date completed Appointment date GR EENWAY ([facility] (finding) (finding) [facility]) Assertion (finding) completed (finding) GUDELIA ([facility]) Assertion Current Address on completed CASTRO MCKEON ([facility]) Assertion cultural background completed [facility]OB [facility] ([facility]) Assertion Finding of child in completed Finding of child in [place] ([facility] family care family care [facility] (finding) ([facility]) [facility]) Assertion Patient care completed Patient care [place] ( [facility] statuses (finding) statuses (finding ) [facility]) Assertion activities completed GUDELIA ([facility]) Vital Signs ID Date Data Source [id number] Name Value Range Interpretation Code Description Data Source(s) Body surface area 1.85 m2 1.85 m2 NOAH Gee ([place] Derived from [facility]) ER follow up Body mass index (BMI) 21.5 kg/m2 21.5 kg/m2 KIM CASASWAY ([place] [Ratio] [facility]) ER follow up Body weight 150 [lb_av] 150 [lb_av] GUDELIA ( ount [facility]) ER follow up Body height 70 [in_us] 70 [in_us] GUDELIA ([facility]) ER follow up Body temperature 97.8 [degF] 97.8 [degF] CASTRO MCKEON ([facility]) ER follow up Heart rate rhythm 1 1 NOAH Gee ([facility]) ER follow up Heart rate 60 /min 60 /min GUDELIA ([facility]) ER follow up Diastolic blood pressure 89 mm[Hg] 89 mm[Hg] GUDELIA ([facility]) ER follow up Systolic blood pressure 181 mm[Hg] 181 mm[Hg] G REENWAY ([facility]) ER follow up PhenX - pain, abdominal - type and 0 0 GUDELIA ([facility]) ER follow up PhenX - pain, abdominal - type and 0 0 GUDELIA ([facility]) patient complains of constipation Body surface area Derived from 1.86 m2 1.86 m2 GUDELIA ([facility]) patient complains of constipation Body mass index (BMI) 21.8 kg/m2 21.8 kg/m2 GRE ENWAY ([place] [[facility]] [facility]) patient complains of constipation Body weight 152 [lb_av] 152 [lb_av] GUDELIA ([facility]) patient complains of constipation Body height 70 [in_us] 70 [in_us] GUDELIA ([facility]) patient complains of constipation Body temperature 97.9 [degF] 97.9 [degF] [place] ([facility]) patient complains of constipation Heart rate rhythm 1 1 [place] Y ([facility]) patient complains of constipation Heart rate 59 /min 59 /min GUDELIA ([facility]) patient complains of constipation Diastolic blood pressure 69 mm[Hg] 69 mm[Hg] GUDELIA ([facility]) patient complains of constipation Systolic blood pressure 138 mm[Hg] 138 mm[Hg] G REENWAY ([facility]) patient complains of constipation PhenX - pain, abdominal - type and 0 0 GUDELIA ([facility]) Complete physical exam Body surface area Derived from 1.84 m2 1.84 m2 GUDELIA ([facility]) Complete physical exam Body mass index (BMI) 21.2 kg/m2 21.2 kg/m2 GRE ENWAY ([place] [[facility]] [facility]) Complete physical exam Body weight 148 [lb_av] 148 [lb_av] GUDELIA ([facility]) Complete physical exam Body height 70 [in_us] 70 [in_us] GUDELIA ([facility]) Complete physical exam Body temperature 98 [degF] 98 [degF] GUDELIA ([facility]) Complete physical exam Heart rate rhythm 1 1 Y ([facility]) Complete physical exam Heart rate 52 /min 52 /min GUDELIA ([facility]) Complete physical exam Diastolic blood pressure 86 mm[Hg] 86 mm[Hg] GUDELIA ([facility]) Complete physical exam Systolic blood pressure 147 mm[Hg] 147 mm[Hg] [facility] Complete physical exam PhenX - pain, abdominal - type and 0 0 GUDELIA ([facility]) Follow up Body surface area Derived from 1.86 m2 1.86 m2 GUDELIA ([facility]) Follow up Body mass index (BMI) 21.8 kg/m2 21.8 kg/m2 GRE ENWAY ([place] [Ratio] [facility]) Follow up Body weight 152 [lb_av] 152 [lb_av] GUDELIA ([facility]) Follow up Body height 70 [in_us] 70 [in_us] GUDELIA ([facility]) Follow up Body temperature 98.1 [degF] 98.1 [degF] [facility] ([facility]) Follow up Heart rate rhythm 1 1 ([facility]) Follow up Heart rate 60 /min 60 /min GUDELIA ([facility]) Follow up Diastolic blood pressure 76 mm[Hg] 76 mm[Hg] GUDELIA ([facility]) Follow up Systolic blood pressure 128 mm[Hg] 128 mm[Hg] [facility] Follow up PhenX - pain, abdominal - type and 0 0 GUDELIA ([facility]) follow up Body surface area Derived from 1.86 m2 1.86 m2 GUDELIA ([facility]) follow up Body mass index (BMI) 21.8 kg/m2 21.8 kg/m2 GRE EN[place]AY ([place] [Ratio] [facility]) follow up Body weight 152 [lb_av] 152 [lb_av] GUDELIA ([facility]) follow up Body height 70 [in_us] 70 [in_us] GUDELIA ([facility]) follow up Heart rate rhythm 1 1 ([facility]) follow up Heart rate 56 /min 56 /min GUDELIA ([facility]) follow up Diastolic blood pressure 81 mm[Hg] 81 mm[Hg] GUDELIA ([facility]) follow up Systolic blood pressure 141 mm[Hg] 141 mm[Hg] G REENWAY ([facility]) follow up PhenX - pain, abdominal - type and 0 0 GUDELIA ([facility]) follow up Body surface area Derived from 1.86 m2 1.86 m2 GUDELIA ([facility]) follow up Body mass index (BMI) 22.0 kg/m2 22.0 kg/m2 GRE EN[place]AY ([place] [Ratio] [facility]) follow up Body weight 153 [lb_av] 153 [lb_av] GUDELIA ([facility]) follow up Body height 70 [in_us] 70 [in_us] GUDELIA ([facility]) follow up Body temperature 98.3 [degF] 98.3 [degF] [facility] ([facility]) follow up Heart rate rhythm 1 1 ([facility]) follow up Heart rate 72 /min 72 /min GUDELIA ([facility]) follow up Diastolic blood pressure 77 mm[Hg] 77 mm[Hg] GUDELIA ([facility]) follow up Systolic blood pressure 122 mm[Hg] 122 mm[Hg] G REENWAY ([facility]) follow up PhenX - pain, abdominal - type and 0 0 GUDELIA ([facility]) lab results Body surface area Derived from 1.87 m2 1.87 m2 GUDELIA ([facility]) lab results Body mass index (BMI) 22.2 kg/m2 22.2 kg/m2 [facility] [place] ([place] [[facility]] [facility]) lab results Body weight 155 [lb_av] 155 [lb_av] GUDELIA ([facility]) lab results Body height 70 [in_us] 70 [in_us] GUDELIA ([facility]) lab results Body temperature 98 [degF] 98 [degF] GUDELIA ([facility]) lab results Heart rate rhythm 1 1 ([facility]) lab results Heart rate 50 /min 50 /min GUDELIA ([facility]) lab results Diastolic blood pressure 78 mm[Hg] 78 mm[Hg] GUDELIA ([facility]) lab results Systolic blood pressure 132 mm[Hg] 132 mm[Hg] G [facility] ([facility]) lab results PhenX - pain, abdominal - type and 0 0 GUDELIA ([facility]) Follow up Body surface area Derived from 1.89 m2 1.89 m2 GUDELIA ([facility]) Follow up Body mass index (BMI) 22.8 kg/m2 22.8 kg/m2 [address] ([place] [[facility]] [facility]) Follow up Body weight 159 [lb_av] 159 [lb_av] GUDELIA ([facility]) Follow up Body height 70 [in_us] 70 [in_us] GUDELIA ([facility]) Follow up Body temperature 98 [degF] 98 [degF] GUDELIA ([facility]) Follow up Heart rate rhythm 1 1 ([facility]) Follow up Heart rate 56 /min 56 /min GUDELIA ([facility]) Follow up Diastolic blood pressure 68 mm[Hg] 68 mm[Hg] GUDELIA ([facility]) Follow up Systolic blood pressure 121 mm[Hg] 121 mm[Hg] [facility] ([facility]) Follow up PhenX - pain, abdominal - type and 0 0 GUDELIA ([facility]) Concern about cold Body surface area Derived from 1.87 m2 1.87 m2 GUDELIA ([facility]) Concern about cold Body mass index (BMI) 22.2 kg/m2 22.2 kg/m2 [place] ([place] [[facility]] [facility]) Concern about cold Body weight 155 [lb_av] 155 [lb_av] GUDELIA ([facility]) Concern about cold Body height 70 [in_us] 70 [in_us] GUDELIA ([facility]) Concern about cold Body temperature 97.7 [degF] 97.7 [degF] GREEN AY ([facility]) Concern about cold Heart rate rhythm 1 1 [place] Y ([facility]) Concern about cold Heart rate 55 /min 55 /min GUDELIA ([facility]) Concern about cold Diastolic blood pressure 74 mm[Hg] 74 mm[Hg] GUDELIA ([facility]) Concern about cold Systolic blood pressure 127 mm[Hg] 127 mm[Hg] G REENWAY ([facility]) Concern about cold PhenX - pain, abdominal - type and 0 0 GUDELIA ([facility]) follow up Body surface area Derived from 1.88 m2 1.88 m2 GUDELIA ([facility]) follow up Body mass index (BMI) 22.5 kg/m2 22.5 kg/m2 [place] ([place] [[facility]) follow up Body weight 157 [lb_av] 157 [lb_av] GUDELIA ([facility]) follow up Body height 70 [in_us] 70 [in_us] GUDELIA ([facility]) follow up Heart rate rhythm 1 1 Y ([facility]) follow up Heart rate 49 /min 49 /min GUDELIA ([facility]) follow up Diastolic blood pressure 73 mm[Hg] 73 mm[Hg] GUDELIA ([facility]) follow up Systolic blood pressure 137 mm[Hg] 137 mm[Hg] G REENWAY ([facility]) follow up PhenX - pain, abdominal - type and 0 0 GUDELIA ([facility]) lab results Body surface area Derived from 1.90 m2 1.90 m2 GUDELIA ([facility]) lab results Body mass index (BMI) 23.0 kg/m2 23.0 kg/m2 [address] ([place] [[facility]] [facility]) lab results Body weight 160 [lb_av] 160 [lb_av] GUDELIA ([facility]) lab results Body height 70 [in_us] 70 [in_us] GUDELIA ([facility]) lab results Body temperature 98.3 [degF] 98.3 [degF] [facility] ([facility]) lab results Heart rate rhythm 1 1 Y ([facility]) lab results Heart rate 56 /min 56 /min GUDELIA ([facility]) lab results Diastolic blood pressure 82 mm[Hg] 82 mm[Hg] GUDELIA ([facility]) lab results Systolic blood pressure 149 mm[Hg] 149 mm[Hg] G [facility] ([facility]) lab results PhenX - pain, abdominal - type and 0 0 GUDELIA ([facility]) follow u Body surface area Derived from 1.87 m2 1.87 m2 GUDELIA ([facility]) follow u Body mass index (BMI) 22.2 kg/m2 22.2 kg/m2 [facility] [facility]) follow u Body weight 155 [lb_av] 155 [lb_av] GUDELIA ([facility]) follow u Body height 70 [in_us] 70 [in_us] GUDELIA ([facility]) follow u Body temperature 98 [degF] 98 [degF] GUDELIA ([facility]) follow u Heart rate rhythm 1 1 Y ([facility]) follow u Heart rate 66 /min 66 /min GUDELIA ([facility]) follow u Diastolic blood pressure 76 mm[Hg] 76 mm[Hg] GUDELIA ([facility]) follow u Systolic blood pressure 125 mm[Hg] 125 mm[Hg] G [facility] ([facility]) follow u PhenX - pain, abdominal - type and 0 0 GUDELIA ([facility] protocol [facility]) CONCERN ABOUT GAS / COLD Body surface area Derived from 1.86 m2 1.86 m2 [place] ([facility]) CONCERN ABOUT GAS / COLD Body mass index (BMI) 22.0 kg/m2 22.0 kg/m2 [place] ([place] [facility]] [facility] CONCERN ABOUT GAS / COLD Body weight 153 [lb_av] 153 [lb_av] GUDELIA ([facility]) CONCERN ABOUT GAS / COLD Body height 70 [in_us] 70 [in_us] GUDELIA ([facility]) CONCERN ABOUT GAS / COLD Body temperature 98.4 [degF] 98.4 [degF] [place] ([facility]) CONCERN ABOUT GAS / COLD Heart rate rhythm 1 1 [place] Y ([facility]) CONCERN ABOUT GAS / COLD Heart rate 73 /min 73 /min GUDELIA ([facility]) CONCERN ABOUT GAS / COLD Diastolic blood pressure 78 mm[Hg] 78 mm[Hg] GUDELIA ([facility]) CONCERN ABOUT GAS / COLD Systolic blood pressure 139 mm[Hg] 139 mm[Hg] G REENWAY ([facility]) CONCERN ABOUT GAS / COLD Patient Treatment Plan of Care Planned Activity Planned Date Details Description Data Source (s) Omeprazole 20 MG Delayed 12/23/2019 [place] ([place] Release Oral Tablet 12:00:00 AM [facility]) Amoxicillin 500 MG Oral 12/23/2019 GREE NWAY ([place] Tablet 12:00:00 AM [facility]) Clarithromycin 500 MG Oral 12/23/2019 G REENWAY ([place] Tablet 12:00:00 AM [facility]) Hydrocortisone 10 MG/ML 05/03/2019 GREE NWAY ([place] Topical Cream 12:00:00 AM [facility]) Motrin (Ibuprofen) O 04/09/2019 [facility] 01:52:20 PM [facility] Metoprolol Tartrate 50 MG 04/08/2019 GR EENWAY ([place] Oral Tablet 12:00:00 AM [facility]) Hydrochlorothiazide 12.5 MG 04/08/2019 GUDELIA ([facility] / Losartan Potassium 50 MG 12:00:00 AM [facility] Tablet [facility]) Hydrochlorothiazide 12.5 MG 11/22/2018 GUDELIA ([facility] / Losartan Potassium 50 MG 12:00:00 AM [facility] Tablet [facility]) Metoprolol Tartrate 50 MG 11/22/2018 GR EENWAY ([place] Oral Tablet 12:00:00 AM EDT [facility]) Dexilant 60MG Oral Capsule 09/04/2017 G REENWAY ([place] Delayed Release 12:00:00 AM T [facility]) Metoprolol Tartrate 50 MG 03/31/2017 GR EENWAY ([place] Oral Tablet 12:00:00 AM [facility]) Hydrochlorothiazide 12.5 MG 03/31/2017 GUDELIA ([place] / Losartan Potassium 50 MG 12:00:00 AM [facility] Tablet [facility]) Amoxicillin 500 MG Oral 03/16/2017 GREE NWAY ([facility] Hydrochlorothiazide 12.5 MG 03/06/2016 [place] ([place] / Losartan Potassium 50 MG 12:00:00 AM [facility] Tablet [facility]) Metoprolol Tartrate 50 MG 03/06/2016 GR EENWAY ([facility] Oral Tablet 12:00:00 AM [facility]) Guaifenesin 20 MG/ML Oral 03/06/2016 GR E[place]WAY ([facility] PriLOSEC OTC 20 MG Tablet 03/06/2016 GR EENWAY ([facility] Delayed Release 12:00:00 AM [facility]) Reglan 10 MG TABS 09/08/2013 GUDELIA ( [facility] Reglan 5 MG TABS 07/26/2013 GUDELIA (M [facility]unt 12:00:00 AM EST [facility]) Lopressor 50MG OR TABS 01/29/[address] ([facility] PriLOSEC OTC 20MG OR TBEC 11/04/2011 GR EENWAY ([facility] 12:00:00 AM EDT [facility]) PriLOSEC OTC 20MG OR TBEC 11/04/2011 GR E[place] ([facility] 12:00:00 AM EDT [facility]) Hydrochlorothiazide 12.5 MG 11/04/2011 [place] ([place] / Losartan Potassium 50 MG 12:00:00 AM [facility]) Hydrochlorothiazide 12.5 MG 11/04/2011 [place] ([place] / Losartan Potassium 50 MG 12:00:00 AM [facility])
[2020-02-28 09:46] VITALS: TEMP 98
[2020-02-28 10:32] VITALS: BP 138/76; PULSE 60
== END 2020-02-28 11:00 | disposition home or self-care (01) ==
LOC: JASU-ENDO 04:54
PROVIDERS: ATTEND Internal Medicine Gastroenterology
PROC: 0DJD8ZZ Inspection of Lower Intestinal Tract, Via Natural or Artificial Opening Endoscopic (ICD-10-PCS; principal; 2020-02-28 09:30)
DX: Z12.11 Encounter for screening for malignant neoplasm of colon (principal); K63.89 Other specified diseases of intestine

== ENCOUNTER 2020-08-14 17:56 | Emergency (ER) | payer OTHER ==
[2020-08-14 18:19] VITALS: BP 141/84; PULSE 77; BMI 22.1
== END 2020-08-14 19:37 | disposition home or self-care (01) ==
LOC: JER 17:56
DX: E86.0 Dehydration (principal)
CPT/HCPCS: 70450-TC; 82962; 99285-25

== ENCOUNTER 2024-02-19 17:58 | Observation (INO) | payer OTHER ==
[2024-02-19 18:05] VITALS: BMI 21.7
[2024-02-19 20:18] LABS: BASO % 0.3 % (0-2.0); EOS % 0.1 % (0-4.5); HEMATOCRIT 47.6 % (35.4-49); HEMOGLOBIN 15.8 GM/dL (11.7-16.9); LYMPH % 9.4 % (8-40); MCH 28.3 pg (25.7-33.7); MCHC 33.2 g/dl (32.0-35.9); MEAN CELL VOLUME 85.2 fl (80-96); MONO % 6.6 % (3.8-10.2); NEUT % 83.6 % (42.8-82.8); PLATELET COUNT 178 10^3/uL (134-434); RBC 5.58 M/mm3 (4.00-5.60); RDW 14.4 % (11.9-15.9); WHITE BLOOD COUNT 12.8 K/mm3 (4.0-10.0)
[2024-02-19 20:25] LABS: INR 1.03 (0.83-1.09); PROTHROMBIN TIME (PATIENT) 11.8 SEC (9.7-13.0)
[2024-02-19 20:45] LABS: POTASSIUM 3.8 mmol/L (3.5-5.1)
[2024-02-19 20:47] LABS: CALCIUM 9.9 mg/dL (8.5-10.1)
[2024-02-19 20:48] LABS: ALBUMIN 4.6 g/dl (3.4-5.0); BLOOD UREA NITROGEN 23.1 mg/dL (7-18); MAGNESIUM 2.3 mg/dL (1.8-2.4)
[2024-02-19 20:51] LABS: CREATININE 1.3 mg/dL (0.55-1.3)
[2024-02-19 20:52] LABS: TOT PROT 8.1 g/dl (6.4-8.2)
[2024-02-20 00:27] LABS: PH,URINE 5.5 (5.0-8.0); URINE APPEARANCE CLEAR; URINE BILIRUBIN NEGATIVE (NEGATIVE); URINE COLOR YELLOW; URINE GLUCOSE (UA) NEGATIVE (NEGATIVE); URINE KETONE 2+ (NEGATIVE); URINE LEUK ESTERASE NEGATIVE (NEGATIVE); URINE NITRITE NEGATIVE (NEGATIVE); URINE PROTEIN NEGATIVE (NEGATIVE); URINE UROBILINOGEN 0.2 mg/dL (0.2-1.0)
[2024-02-20] MEDS: ASPIRIN 81 MG CHEWABLE TABLETS PO ONE (02:15)
[2024-02-20 04:50] LABS: HEMATOCRIT 46.4 % (35.4-49); HEMOGLOBIN 15.8 GM/dL (11.7-16.9); MCH 28.6 pg (25.7-33.7); MEAN CELL VOLUME 84.3 fl (80-96); PLATELET COUNT 165 10^3/uL (134-434); RDW 14.3 % (11.9-15.9); WHITE BLOOD COUNT 12.4 K/mm3 (4.0-10.0)
[2024-02-20] MEDS ORDERED: LACTATED RINGERS SOLUTION 1,000 ML/1,000 ML INFUS.BAG IV SCH (07:00)
[2024-02-20] MEDS: SODIUM CHLORIDE 1,000 ML IV SCH (08:08)
[2024-02-20 08:28] LABS: BASO % 0.5 % (0-2.0); EOS % 0.3 % (0-4.5); HEMOGLOBIN 14.6 GM/dL (11.7-16.9); LYMPH % 16.7 % (8-40); MCH 28.6 pg (25.7-33.7); MCHC 33.2 g/dl (32.0-35.9); MEAN CELL VOLUME 86.3 fl (80-96); MEAN PLT VOLUME 10.9 fl (7.5-11.1); MONO % 8.3 % (3.8-10.2); NEUT % 74.2 % (42.8-82.8); PLATELET COUNT 158 10^3/uL (134-434); RDW 13.9 % (11.9-15.9); WHITE BLOOD COUNT 10.6 K/mm3 (4.0-10.0)
[2024-02-20 08:37] LABS: POTASSIUM 3.3 mmol/L (3.5-5.1)
[2024-02-20 08:39] LABS: CALCIUM 9.2 mg/dL (8.5-10.1)
[2024-02-20 08:40] LABS: ALBUMIN 3.7 g/dl (3.4-5.0); BLOOD UREA NITROGEN 17.3 mg/dL (7-18); MAGNESIUM 2.2 mg/dL (1.8-2.4)
[2024-02-20 08:43] LABS: PHOSPHOROUS 3.1 mg/dL (2.5-4.9)
[2024-02-20 08:44] LABS: BILIRUBIN,TOTAL 1.2 mg/dL (0.2-1); TOT PROT 6.8 g/dl (6.4-8.2)
[2024-02-20] MEDS: ENOXAPARIN NA (PORCINE) 40 MG/0.4 ML DISP.SYRIN SQ SCH (09:18)
[2024-02-20] MEDS: HYDROCHLOROTHIAZIDE 12.5 MG CAPSULE (FP) PO SCH (09:18)
[2024-02-20] MEDS: LOSARTAN POTASSIUM 50 MG TABLET PO SCH (09:18)
[2024-02-20] MEDS: METOPROLOL TARTRATE 50 MG TABLET (FP) PO SCH (09:18)
[2024-02-21] MEDS ORDERED: SIMETHICONE 80 MG TAB.CHEW (FP) PO PRN (10:37)
[2024-02-21 18:15] LABS: POTASSIUM 3.4 mmol/L (3.5-5.1)
[2024-02-21 18:16] LABS: CALCIUM 9.1 mg/dL (8.5-10.1)
[2024-02-22 08:01] LABS: HEMATOCRIT 43.4 % (35.4-49); HEMOGLOBIN 14.6 GM/dL (11.7-16.9); MCH 28.7 pg (25.7-33.7); MCHC 33.7 g/dl (32.0-35.9); MEAN CELL VOLUME 85.3 fl (80-96); MEAN PLT VOLUME 10.6 fl (7.5-11.1); PLATELET COUNT 145 10^3/uL (134-434); RBC 5.09 M/mm3 (4.00-5.60); RDW 14.1 % (11.9-15.9); WHITE BLOOD COUNT 6.5 K/mm3 (4.0-10.0)
[2024-02-22 08:20] LABS: POTASSIUM 3.8 mmol/L (3.5-5.1)
[2024-02-22 08:29] LABS: CALCIUM 9.1 mg/dL (8.5-10.1)
[2024-02-22 08:30] LABS: ALBUMIN 3.4 g/dl (3.4-5.0); BLOOD UREA NITROGEN 16.7 mg/dL (7-18); MAGNESIUM 1.9 mg/dL (1.8-2.4)
[2024-02-22 08:34] LABS: BILIRUBIN,TOTAL 1.2 mg/dL (0.2-1); TOT PROT 6.4 g/dl (6.4-8.2)
[2024-02-22 10:41] VITALS: BP 141/78; PULSE 59; RESP 17; TEMP 98.6
== END 2024-02-22 17:49 | disposition home or self-care (01) ==
LOC: JER 17:58 → JERBED 02-20 00:20 → J4W 02-20 01:48
PROVIDERS: ADMIT Internal Medicine; ATTEND Internal Medicine
PROC: 3E023GC Introduction of Other Therapeutic Substance into Muscle, Percutaneous Approach (ICD-10-PCS; principal; 2024-02-20)
PROC: 3E0337Z Introduction of Electrolytic and Water Balance Substance into Peripheral Vein, Percutaneous Approach (ICD-10-PCS; 2024-02-20)
DX: R55 Syncope and collapse (principal); I10 Essential (primary) hypertension; R79.89 Other specified abnormal findings of blood chemistry; F80.81 Childhood onset fluency disorder; W18.39XA Other fall on same level, initial encounter; Y93.89 Activity, other specified; Y92.89 Other specified places as the place of occurrence of the external cause; E78.5 Hyperlipidemia, unspecified; K21.9 Gastro-esophageal reflux disease without esophagitis
CPT/HCPCS: 0241U-QW; 36415; 70450-TC; 70486-TC; 71045-TC-FY; 72125-TC; 72170-TC-FY; 80048; 80053; 80061; 81003; 82550; 82553; 83735; 84100; 84439; 84443; 84484; 85025; 85027; 85610; 85730; 87086; 93005; 93010; 93306-TC; 93880-TC; 96360; 96372; 97116-GP; 97161-GP; 99285-25; G0378